=== PATIENT | female | born 1960 | race African-American/Black ===

== ENCOUNTER 2016-11-24 12:21 | Emergency (ER) | payer OTHER ==
[2016-11-24 12:28] VITALS: BMI 35.3
--- NOTE | 2016-11-24 12:49 | PDOC ---
History of Present Illness - General Chief Complaint: Seizure Stated Complaint: Seizure Time Seen by Provider: 11/24/16 12:39 History Source: Patient Exam Limitations: No Limitations - History of Present Illness Initial Comments: 11/24/16 13:01 56y F hx of tbi, aneyrsyms s/p repair in [place], seizures on keppra, presents with possible seizure vs syncope - pt states she had some reslessness with her leg which is chronic for her last night and this morning, she remembers putting something into the refrigerator and then woke up on the floor/ pt endorse feeling mild left sided headache for the past 2 weeks. denies any vision changes , numbness/tingling/weakness. pt states she has had these on occasion especially when she is emotional/agitated. pt denies an ypalpitations, sob, chest pressure, diarrhea, melena, bpr. no urrinary or bowel incontinence pt denies any tongue biting Past History - Past Medical History Allergies/Adverse Reactions: Allergies Allergy/AdvReac Type Severity Reaction Status Date / Time diphenhydramine HCl Allergy Verified 11/24/16 12:25 [From Benadryl] paroxetine HCl [From Paxil] Allergy Verified 11/24/16 12:25 pseudoephedrine HCl Allergy Verified 11/24/16 12:25 [From Sudafed] rofecoxib [From Vioxx] Allergy Verified 11/24/16 12:25 Home Medications: Ambulatory Orders Amlodipine Besylate [Norvasc -] 2.5 mg PO DAILY 12/09/15 Diclofenac Sodium [Voltaren] 100 gm TP BID 12/09/15 Doxepin HCl 200 mg PO HS 12/09/15 Hydromorphone HCl [Dilaudid] 8 mg PO Q6H PRN 12/09/15 Levetiracetam [Keppra -] 1,000 mg PO AM 12/09/15 Levetiracetam [Keppra] 1,500 mg PO HS 12/09/15 Polyethylene Glycol 3350 [Miralax 255 gm Btl] 17 gm PO DAILY PRN #1 bottle 12/08 Pregabalin [Lyrica] 225 mg PO DAILY 12/09/15 HTN: Yes Psychiatric Problems: Yes - Surgical History Neurologic Surgery: Yes (brain aneurysms x3 (2010)) - Psycho/Social/Smoking Cessation Hx Anxiety: No Suicidal Ideation: No Smoking History: Current every day smoker Have you smoked in the past 12 months: Yes Number of Cigarettes Smoked Daily: 20 Information on smoking cessation initiated: No 'Breaking Loose' booklet given: 12/09/15 Hx Alcohol Use: No Drug/Substance Use Hx: No Substance Use Type: None Review of Systems - Review of Systems Able to Perform ROS?: Yes Comments:: 11/24/16 13:20 Constitutional - no reported Fever, Chills, weakness, HEENT: no reported vision changes, sore throat Respiratory: no reported cough, sob, hemoptysis Cardiac: no reported chest pain, palpitations, light headedness, leg swelling Abd/GI: no reported abd pain, nausea, vomiting, blood per rectum, melena, diarrhea : no reported dysuria, frequency, discharge Musculskelatal - no reported back pain, joint swelling skin - no reported bruising, erythema, rash neurological: +headache, +loc (seizure vs syncope) no reported numbness, focal weakness, tingling, ataxia, weakness hematologic: no reported anemia, easy bruising, easy bleeding *Physical Exam - Vital Signs Last Vital Signs Temp Pulse Resp BP Pulse Ox 97.9 F 93 H 18 140/104 100 11/24/16 12:26 11/24/16 12:26 11/24/16 12:26 11/24/16 12:26 11/24/16 12:26 - Physical Exam Comments: 11/24/16 13:21 GENERAL: The patient is awake, alert, and fully oriented, Nontoxic - in no acute distress. HEAD: Normocephalic, atraumatic. EYES: extraocular movements intact, sclera anicteric, conjunctiva clear. ENT: Normal voice, Moist mucous membranes. NECK: Normal range of motion, supple LUNGS: Breath sounds equal, clear to auscultation bilaterally. No wheezes, no rhonchi, no rales. HEART: Regular rate and rhythm, normal S1 and S2 without murmur, rub or gallop. ABDOMEN: Soft, nontender, normoactive bowel sounds. No guarding, no rebound. . No CVA tenderness EXTREMITIES: Normal range of motion, no edema. No clubbing or cyanosis. No cords, erythema, or tenderness. NEUROLOGICAL: No facial assymetry, Normal speech, moving all 4 extremities spontanoeusly and symmetrically PSYCH: Normal mood, normal affect. SKIN: Warm, Dry, normal turgor, ED Treatment Course - LABORATORY CBC & Chemistry Diagram: 11/24/16 13:52 11/24/16 13:40 Medical Decision Making - Medical Decision Making 11/24/16 12:48 I was evaluating the patient when I received a call from a physician regarding a sick patient they were sending to the emergency department. The patient then became agrssive, and was upset, claiming I disrespected her when I walked away from her. after discussion with her, she calmed down. 11/24/16 13:22 s/p LOC seizure vs. syncope (pt states feels like her pervious seizures but w/o tongue biting) will place on traffic monitor specialist will ck labs to r/o anemia, metabolic dernagement ua to r/o occult infection headache to r/o acute intracranial pathology 11/24/16 16:[address] head shows old findings pts labs unremarkable the pt was reassesed. pt negotiating for IV pain medication, requesting 8mg, then 4mg of dilaudid the pt then requesting morphine. I told the patient that I do not negotiate doses of narcotics medications. requesting that 'i better give her something IV that will make her 'relax' i will give pt some tylenol orally. during the process, she is saying 'you are not going to like my head hitting the floor again, if you dont give me IV pain medication;' - bsaed on the patients threats - I suspect the pt is pain seeking. the patient was again called as a condition 10. iw ill discharge the patient to follow up [facility] doctors return precautions were discussed with her. The patient is also insulting staff by calling my nurse 'a swinging black ass from [employer] [employer]'. The ptient will be escorted out by security. *DC/Admit/Observation/Transfer Diagnosis at time of Disposition: Seizure - Discharge Dispostion Disposition: HOME Condition at time of disposition: Stable Admit: No - Referrals Referrals: [facility] [Provider Group] - Patient Instructions Printed Discharge Instructions: DI for Seizure Disorder -- Adult Additional Instructions: Return to the emergency department immediately with ANY new, persistent or worsening symptoms. You MUST call and follow up with your doctor tomorrow for further evaluation of your symptoms. Results were discussed with you. Please make sure your doctor reviews the results of your emergency evaluation. If you had any xrays during your visit, it was read preliminarily by myself, a Radiologist will review it and if there are any additional findings we will call you. Print Language: FAROESE
[2016-11-24 13:48] LABS: BASOPHIL 0.9 % (0-2.0); EOSINOPHIL 1.6 % (0-4.5); MCH 31.3 pg (25.7-33.7); MCHC 33.8 g/dl (32.0-36.0); MEAN CELL VOLUME 92.7 fl (80-96); MEAN PLT VOLUME 8.4 fl (7.5-11.1); NEUTROPHILS 55.6 % (42.8-82.8); PLATELET COUNT 247 K/MM3 (134-434); RDW 14.6 % (11.6-15.6); WHITE BLOOD COUNT 5.1 K/mm3 (4.0-10.0)
[2016-11-24 14:20] LABS: ALBUMIN 3.6 g/dl (3.4-5.0); BILIRUBIN,TOTAL 0.2 mg/dL (0.2-1.0); COCKROFT - GAULT 70.924; CREATININE 1.2 mg/dL (0.55-1.02); TOT PROT 7.2 g/dl (6.4-8.2)
[2016-11-24 15:24] LABS: URINE APPEARANCE CLEAR; URINE BILIRUBIN NEGATIVE (NEGATIVE); URINE BLOOD NEGATIVE (NEGATIVE); URINE COLOR LTYELLOW; URINE GLUCOSE (UA) NEGATIVE (NEGATIVE); URINE KETONE NEGATIVE (NEGATIVE); URINE LEUK ESTERASE NEGATIVE (NEGATIVE); URINE NITRITE NEGATIVE (NEGATIVE); URINE PROTEIN NEGATIVE (NEGATIVE); URINE UROBILINOGEN NEGATIVE E.U./dl (0.2-1.0)
[2016-11-24] MEDS ORDERED: ACETAMINOPHEN 1000 MG/100 ML VIAL (NON FORMULARY) IVPB ONE (16:26)
[2016-11-24] MEDS ORDERED: ACETAMINOPHEN INJECTION 100 ML IVPB ONE (16:32)
[2016-11-24] MEDS ORDERED: ACETAMINOPHEN 325 MG TABLET (FP) PO ONE (16:34)
[2016-11-24] MEDS ORDERED: ACETAMINOPHEN 325 MG TABLET (FP) ONE (16:36)
[2016-11-24 16:46] VITALS: BP 141/93; PULSE 89; TEMP 97.6
== END 2016-11-24 16:45 | disposition home or self-care (01) ==
LOC: JER 12:21
DX: G40.909 Epilepsy, unspecified, not intractable, without status epilepticus (principal); I10 Essential (primary) hypertension; Z87.820 Personal history of traumatic brain injury; F17.210 Nicotine dependence, cigarettes, uncomplicated
CPT/HCPCS: 36415; 70450-TC; 80053; 81003; 83605; 85025; 99284-25

== ENCOUNTER 2017-10-20 14:44 | Emergency (ER) | payer OTHER ==
--- NOTE | 2017-10-20 14:56 | PDOC ---
History of Present Illness - General Stated Complaint: ABD PAIN Time Seen by Provider: 10/20/17 14:56 - History of Present Illness Initial Comments: 10/20/17 14:58 Ms. Garcia is a 57 yo female w/ pmh of TBI, HTN, Restless leg syndrome, carpal tunnel syndrome, aneurysms s/p repair, seizures (on keppra), who presents complaining of a one month history of worsening left leg pain that radiates from her left hip down her leg. This pain is exacerbated by movement and coincides with her chronic back pain for which she has been told she needs back surgery. She also complains of recent increased frequency and volume of urination. The patient denies chest pain, shortness of breath, headache and dizziness. Denies fever, chills, nausea, vomit, diarrhea and constipation. Allergies: Acetaminophen, dextromethorphan, diphenhydramine, doxylamine, ibuprofen, paroxetine, pseudoephrine, rofecoxib Past History - Past Medical History Allergies/Adverse Reactions: Allergies Allergy/AdvReac Type Severity Reaction Status Date / Time acetaminophen [From NyQuil] Allergy Verified 10/20/17 15:03 dextromethorphan Allergy Verified 10/20/17 15:03 [From NyQuil] diphenhydramine HCl Allergy Verified 10/20/17 15:03 [From Benadryl] doxylamine [From NyQuil] Allergy Verified 10/20/17 15:03 ibuprofen [From Advil] Allergy Verified 10/20/17 15:03 paroxetine HCl [From Paxil] Allergy Verified 10/20/17 15:03 pseudoephedrine [From NyQuil] Allergy Verified 10/20/17 15:03 pseudoephedrine HCl Allergy Verified 10/20/17 15:03 [From Sudafed] rofecoxib [From Vioxx] Allergy Verified 10/20/17 15:03 Home Medications: Ambulatory Orders Amlodipine Besylate [Norvasc -] 2.5 mg PO DAILY 12/09/15 Diclofenac Sodium [Voltaren] 100 gm TP BID 12/09/15 Doxepin HCl 200 mg PO HS 12/09/15 Hydromorphone HCl [Dilaudid] 8 mg PO Q6H PRN 12/09/15 Levetiracetam [Keppra] 1,500 mg PO HS 12/09/15 Polyethylene Glycol 3350 [Miralax 255 gm Btl] 17 gm PO DAILY PRN #1 bottle 12/08 Pregabalin [Lyrica] 225 mg PO DAILY 12/09/15 levETIRAcetam [Keppra -] 1,000 mg PO AM 12/09/15 HTN: Yes Psychiatric Problems: Yes - Surgical History Neurologic Surgery: Yes (brain aneurysms x3 (2010)) - Suicide/Smoking/Psychosocial Hx Smoking History: Current every day smoker Have you smoked in the past 12 months: Yes Number of Cigarettes Smoked Daily: 20 'Breaking Loose' booklet given: 12/09/15 Hx Alcohol Use: No Drug/Substance Use Hx: No Substance Use Type: None Review of Systems - Review of Systems Comments:: 10/20/17 15:20 GENERAL/CONSTITUTIONAL: No fever or chills. No weakness. HEAD, EYES, EARS, NOSE AND THROAT: No change in vision. No ear pain or discharge. No sore throat. CARDIOVASCULAR: No chest pain or shortness of breath RESPIRATORY: No cough, wheezing, or hemoptysis. GASTROINTESTINAL: No nausea, vomiting, diarrhea or constipation. GENITOURINARY: +Urinary changes as described of increased frequency / volume MUSCULOSKELETAL: +Left leg pain worsened with any movement. No neck or back pain. SKIN: No rash NEUROLOGIC: No headache, vertigo, loss of consciousness, or change in strength/ sensation. ENDOCRINE: No increased thirst. No abnormal weight change HEMATOLOGIC/LYMPHATIC: No anemia, easy bleeding, or history of blood clots. ALLERGIC/IMMUNOLOGIC: No hives or skin allergy. *Physical Exam - Physical Exam Comments: 10/20/17 15:20 GENERAL: +Patient observed to be morbidly obese. Awake, alert, and fully oriented, in no acute distress HEAD: No signs of trauma, normocephalic, atraumatic EYES: PERRLA, EOMI, sclera anicteric, conjunctiva clear ENT: Auricles normal inspection, hearing grossly normal, nares patent, oropharynx clear without exudates. Moist mucosa NECK: Normal ROM, supple, no lymphadenopathy, JVD, or masses LUNGS: No distress, speaks full sentences, clear to auscultation bilaterally HEART: Regular rate and rhythm, normal S1 and S2, no murmurs, rubs or gallops, peripheral pulses normal and equal bilaterally. ABDOMEN: +Left CVA tenderness w/ left Soft, nontender, normoactive bowel sounds. No guarding, no rebound. No masses EXTREMITIES: Normal inspection, Normal range of motion, no edema. No clubbing or cyanosis. NEUROLOGICAL: Cranial nerves II through XII grossly intact. Normal speech, normal gait, no focal sensorimotor deficits SKIN: Warm, Dry, normal turgor, no rashes or lesions noted. ED Treatment Course - LABORATORY CBC & Chemistry Diagram: 10/20/17 17:11 10/20/17 17:11 Medical Decision Making - Medical Decision Making 10/20/17 16:10 Ms. Garcia presents w/ symptoms of left leg pain and possible UTI. UA and CBC/ CMP sent for evaluation. 10/20/17 17:12 Patient's home dose of dilaudid ordered for pain control. Patient initially refused order and nurse wasted medication per protocol. Order re-placed as patient changed mind and reports she will now take it. 10/20/17 18:08 Labs grossly wnl as below. No concern for acute process at this time. Discharging patient w/ follow-up information for pain management. Patient verbalized understanding and will use referral information for further outpatient care. Laboratory Results - last 24 hr 10/20/17 10/20/17 10/20/17 17:11 17:11 17:25 WBC 6.4 RBC 4.33 Hgb 13.3 Hct 39.1 MCV 90.4 MCH 30.6 MCHC 33.9 RDW 14.4 Plt Count 361 D MPV 7.9 Neutrophils % 58.5 Lymphocytes % 32.2 Monocytes % 6.5 Eosinophils % 2.0 Basophils % 0.8 Sodium 140 Potassium 4.1 Chloride 108 H Carbon Dioxide 25 Anion Gap 7 L BUN 6 L Creatinine 1.2 H Creat Clearance w eGFR 46.47 Random Glucose 114 H Calcium 8.5 Total Bilirubin 0.2 AST 9 L ALT 9 L Alkaline Phosphatase 97 Total Protein 7.6 Albumin 3.3 L Urine Color Yellow Urine Appearance Clear Urine pH 5.0 D Ur Specific [place] 1.026 Urine Protein Negative Urine Glucose (UA) Negative Urine Ketones Trace H Urine Blood Negative Urine Nitrite Negative Urine Bilirubin Negative Urine Urobilinogen 2.0 H Ur Leukocyte Esterase Negative *DC/Admit/Observation/Transfer Diagnosis at time of Disposition: Chronic pain Qualifiers: Chronic pain type: other chronic pain Qualified Code(s): G89.29 - Other chronic pain - Discharge Dispostion Disposition: HOME - Referrals Referrals: David Bullock MD [Non Staff, Medical] - - Patient Instructions Printed Discharge Instructions: DI for Chronic Pain -- Adult Additional Instructions: Please return if any increase in pain, fever, chills, or other concerning symptoms. Follow-up with paint roller assembler using information provided as discussed for further treatment. - Post Discharge Activity
[2017-10-20] MEDS ORDERED: LIDOCAINE HCL 1%, 10 MG/ML (50 mL VIAL) SQ ONE (14:58)
[2017-10-20 15:03] VITALS: BMI 38.7
[2017-10-20] MEDS ORDERED: HYDROmorphone HCL 2 MG TABLET PO ONE (16:35)
[2017-10-20] MEDS ORDERED: HYDROmorphone HCL 2 MG TABLET ONE ×2 (16:46→17:14)
--- NOTE | 2017-10-20 17:24 | PDOC ---
Attending Attestation - Resident Resident Name: Juancarlos Saab - HPI HPI: 10/20/17 16:59 Pt presents to the ED complaining of acute exacerbation of her chronic pain. Denies new complaints. Patient has a pain management physician, but has not been following up with him because " he won't do anything for me". 10/21/17 11:06 - Physicial Exam PE: 10/21/17 11:07 Agree with resident exam. PAtient is awake, alert and neurologically intact. - Medical Decision Making 10/21/17 11:07 Pt presents to the ED complaining of chronic pain, requesting a "shot" for pain. Denies new complaints. PAtient has a long standing history of chronic pain, which has been treated with large doses of narcotics--patient takes 4 mg PO dilaudid at home. I have offered her a work up in the the ED to ensure that there are no acute problems ( she does complain of urinary frequency), but the patient was initially refusing. She now has agreed to give blood and urine. I have explained to her at length that there is no indication at this time for IV or IM narcotic medicines.
[2017-10-20 17:25] LABS: BASO % 0.8 % (0-2.0); HEMATOCRIT 39.1 % (32.4-45.2); HEMOGLOBIN 13.3 GM/dL (10.7-15.3); LYMPH % 32.2 % (8-40); MCH 30.6 pg (25.7-33.7); MCHC 33.9 g/dl (32.0-36.0); MEAN CELL VOLUME 90.4 fl (80-96); MEAN PLT VOLUME 7.9 fl (7.5-11.1); MONO % 6.5 % (3.8-10.2); NEUT % 58.5 % (42.8-82.8); PLATELET COUNT 361 K/MM3 (134-434); RBC 4.33 M/mm3 (3.60-5.2); RDW 14.4 % (11.6-15.6); WHITE BLOOD COUNT 6.4 K/mm3 (4.0-10.0)
[2017-10-20 17:39] LABS: URINE APPEARANCE CLEAR; URINE BILIRUBIN NEGATIVE (NEGATIVE); URINE BLOOD NEGATIVE (NEGATIVE); URINE COLOR YELLOW; URINE GLUCOSE (UA) NEGATIVE (NEGATIVE); URINE KETONE TRACE (NEGATIVE); URINE LEUK ESTERASE NEGATIVE (NEGATIVE); URINE NITRITE NEGATIVE (NEGATIVE); URINE PROTEIN NEGATIVE (NEGATIVE)
[2017-10-20 17:54] LABS: ALBUMIN 3.3 g/dl (3.4-5.0); ALK PHOS 97 U/L (45-117); ANION GAP 7 (8-16); BILIRUBIN,TOTAL 0.2 mg/dL (0.2-1.0); BLOOD UREA NITROGEN 6 mg/dL (7-18); CALCIUM 8.5 mg/dL (8.5-10.1); CHLORIDE 108 mmol/L (98-107); CO2 25 mmol/L (21-32); CREATININE 1.2 mg/dL (0.55-1.02); GLUCOSE,RANDOM 114 mg/dL (74-106); POTASSIUM 4.1 mmol/L (3.5-5.1); SGOT/AST 9 U/L (15-37); SGPT/ALT 9 U/L (12-78); SODIUM 140 mmol/L (136-145); TOT PROT 7.6 g/dl (6.4-8.2)
[2017-10-20 18:46] VITALS: BP 116/78; PULSE 78; TEMP 98
== END 2017-10-20 18:45 | disposition home or self-care (01) ==
LOC: JER 14:44
DX: G89.29 Other chronic pain (principal); S06.9X0A Unspecified intracranial injury without loss of consciousness, initial encounter; I10 Essential (primary) hypertension; G25.81 Restless legs syndrome; G56.00 Carpal tunnel syndrome, unspecified upper limb; F17.210 Nicotine dependence, cigarettes, uncomplicated; F99 Mental disorder, not otherwise specified
CPT/HCPCS: 36415; 80053; 81003; 85025; 87086; 99284-25

== ENCOUNTER 2018-03-14 12:08 | Observation (INO) | payer OTHER ==
--- NOTE | 2018-03-14 12:55 | PDOC ---
History of Present Illness - General Stated Complaint: NUMBNESS Time Seen by Provider: 03/14/18 12:12 History Source: Patient - History of Present Illness Initial Comments: 03/14/18 12:44 57 yo female pmh of 8 strokes (residual left sided weakness and numbness) and 3 aneurysms (last one coiled in 2009) seizures (2-3 times a week), hypertension, bipolar and anxiety presents to the ED for left sided headache and face numbness that started yesterday morning. Patient admits to having intermittent headaches and left sided sensory deficits which usually resolve within 30min but came to the ED today for persistent left sided head numbness. Patient states she woke up with with a headache which persisted throughout the day and into today. She also admits to waking up this morning slumped over on her dresser around 3 am without recollection as to how she got there. Patient does admit to being more confused than normal today, having double vision and also feelings of nausea and dizziness. Patient admits to Q abdominal pain, SOB and CP. Past History - Past Medical History Allergies/Adverse Reactions: Allergies Allergy/AdvReac Type Severity Reaction Status Date / Time acetaminophen [From NyQuil] Allergy Verified 03/14/18 12:43 dextromethorphan Allergy Verified 03/14/18 12:43 [From NyQuil] diphenhydramine HCl Allergy Verified 03/14/18 12:43 [From Benadryl] doxylamine [From NyQuil] Allergy Verified 03/14/18 12:43 ibuprofen [From Advil] Allergy Verified 03/14/18 12:43 paroxetine HCl [From Paxil] Allergy Verified 03/14/18 12:43 pseudoephedrine [From NyQuil] Allergy Verified 03/14/18 12:43 pseudoephedrine HCl Allergy Verified 03/14/18 12:43 [From Sudafed] rofecoxib [From Vioxx] Allergy Verified 03/14/18 12:43 Home Medications: Ambulatory Orders Amlodipine Besylate [Norvasc -] 2.5 mg PO DAILY 12/09/15 Diclofenac Sodium [Voltaren] 100 gm TP BID 12/09/15 Doxepin HCl 200 mg PO HS 12/09/15 Hydromorphone HCl [Dilaudid] 4 mg PO Q6H PRN 04/21/16 Levetiracetam [Keppra] 1,500 mg PO HS 12/09/15 Polyethylene Glycol 3350 [Miralax 255 gm Btl] 17 gm PO DAILY PRN #1 bottle 12/08 Pregabalin [Lyrica] 225 mg PO DAILY 12/09/15 levETIRAcetam [Keppra -] 1,000 mg PO AM 12/09/15 Acetaminophen/Caffeine/Butalb [Fioricet -] 1 tab PO Q4H 03/14/18 Atenolol [Tenormin -] 25 mg PO DAILY 03/14/18 Duloxetine HCl [Cymbalta] 30 mg PO HS 03/14/18 Gabapentin [Neurontin] 600 mg PO HS 03/14/18 Ropinirole HCl 0.5 mg PO DAILY 03/14/18 COPD: No HTN: Yes Psychiatric Problems: Yes - Surgical History Neurologic Surgery: Yes (brain aneurysms x3 (2010)) - Immunization History Immunization Up to Date: Yes - Suicide/Smoking/Psychosocial Hx Smoking History: Current every day smoker Have you smoked in the past 12 months: Yes Number of Cigarettes Smoked Daily: 20 Information on smoking cessation initiated: Yes 'Breaking Loose' booklet given: 12/09/15 Hx Alcohol Use: No Drug/Substance Use Hx: No Substance Use Type: Marijuana Review of Systems - Review of Systems Constitutional: Yes: Weakness (residual left sided). No: Fever HEENTM: Yes: Double Vision. No: Eye Pain Respiratory: Yes: Shortness of Breath. No: Cough Cardiac (ROS): Yes: Chest Pain. No: Edema, Irregular Heart Rate, Lightheadedness, Palpitations ABD/GI: Yes: Nausea, Vomiting (1x yesterday afternoon), Other (LLQ pain). No: Abdominal Distended, Constipated, Diarrhea : No: Burning, Dysuria, Discharge, Frequency, Flank Pain, Hematuria Musculoskeletal: Yes: Back Pain (hx of back surgies and bulging discs, states it is consistent with past pain hx) Integumentary: No: Bruising Neurological: Yes: Headache, Numbness (left side of face), Paresthesia (residual , bilateral hands and feet), Weakness (residual weakness left extremities ) Psychiatric: Yes: Anxiety *Physical Exam - Vital Signs Last Vital Signs Temp Pulse Resp BP Pulse Ox 97.8 F 78 22 128/99 94 L 07/26/18 12:20 03/14/18 12:20 03/14/18 12:20 03/14/18 12:20 03/14/18 12:20 - Physical Exam General Appearance: Yes: Nourished, Appropriately Dressed, Apparent Distress ( confused and lethargic ) HEENT: positive: EOMI, KASSIDY, Normal ENT Inspection, Normal Voice, Photophobia ( mid). negative: Scleral Icterus (R), Scleral Icterus (L), Lesions Respiratory/Chest: positive: Lungs Clear, Normal Breath Sounds. negative: Respiratory Distress Cardiovascular: positive: Regular Rhythm, Regular Rate, S1, S2. negative: Edema , JVD, Murmur Vascular Pulses: Dorsalis-Pedis (R): 4+, Doralis-Pedis (L): 4+ Gastrointestinal/Abdominal: positive: Normal Bowel Sounds, Tenderness (LLQ). negative: Pulsatile Mass, Distended, Guarding, Rebound Musculoskeletal: negative: CVA Tenderness Extremity: positive: Normal Capillary Refill Integumentary: positive: Normal Color, Dry, Warm Neurologic: positive: superintendent nonselling II-XII NML intact, Fully Oriented, Alert, Normal Response, Motor Strength 5/5, Numbness (left face, uper and lower ext numb and dulled compared to right), Finger to Nose (normal), Confused. negative: Normal Mood/Affect (confused), Disoriented Heart Score/ECG Review - ECG Intrepretation Rhythm: Regular Rhythm - [place]: Normal - ECG Impressions Normal ECG: Yes ED Treatment Course - LABORATORY CBC & Chemistry Diagram: 03/14/18 13:12 03/14/18 13:12 Medical Decision Making - Medical Decision Making 57 yo female pmh of multiple strokes (coiled) and seizures presents to the ED with a headache and left sided face numbness for the past 36 hours. On exam patient is alert but confused. CN2-12 grossly intact but admits to dull sensation to the left face when compared bilaterally. Hard to distinguish residual deficits from new complaints to to patients affect. Pt has complained of pain but refused toradol. She has been resting while in the ed Head CT shows a lacunar infarct in the basal ganglia of uncertain chronicity 03/14/18 15:[address] Fernandez who would like the patient admitted and have an MRI. He will see the patient tomorrow. Will admit patient to hospitalist 03/14/18 16:54 *DC/Admit/Observation/Transfer Diagnosis at time of Disposition: Left facial numbness - Discharge Dispostion Condition at time of disposition: Stable Decision to Admit order: Yes - Referrals - Patient Instructions - Post Discharge Activity
[2018-03-14] MEDS ORDERED: SODIUM CHLORIDE 1,000 ML IV SCH (13:15)
[2018-03-14 13:35] LABS: BASO % 0.6 % (0-2.0); HEMATOCRIT 38.6 % (32.4-45.2); HEMOGLOBIN 13.1 GM/dL (10.7-15.3); MCH 30.9 pg (25.7-33.7); MCHC 33.8 g/dl (32.0-36.0); MEAN CELL VOLUME 91.5 fl (80-96); MEAN PLT VOLUME 9.3 fl (7.5-11.1); MONO % 4.8 % (3.8-10.2); NEUT % 45.6 % (42.8-82.8); PLATELET COUNT 257 K/MM3 (134-434); RBC 4.23 M/mm3 (3.60-5.2); RDW 18.2 % (11.6-15.6); WHITE BLOOD COUNT 4.7 K/mm3 (4.0-10.0)
[2018-03-14 13:41] LABS: INR 1.12 (0.82-1.09); PROTHROMBIN TIME (PATIENT) 12.6 SEC (9.7-13.0)
[2018-03-14 13:58] LABS: ANION GAP 8 (8-16); BLOOD UREA NITROGEN 5 mg/dL (7-18); CHLORIDE 102 mmol/L (98-107); CHOLESTEROL 439 mg/dL (50-200); CO2 31 mmol/L (21-32); CREATININE 1.6 mg/dL (0.55-1.02); GLUCOSE,RANDOM 83 mg/dL (74-106); HDL CHOLESTEROL 51 mg/dL (40-60); POTASSIUM 3.1 mmol/L (3.5-5.1); SGOT/AST 36 U/L (15-37); SGPT/ALT 26 U/L (12-78); SODIUM 141 mmol/L (136-145); TRIGLYCERIDES 265 mg/dL (35-160)
[2018-03-14 14:00] LABS: ALK PHOS 75 U/L (45-117); BILIRUBIN,TOTAL 0.4 mg/dL (0.2-1.0); TOT PROT 8.3 g/dl (6.4-8.2)
--- NOTE | 2018-03-14 14:27 | EKG ---
Test Reason : Blood Pressure : / mmHG Vent. Rate : 068 BPM Atrial Rate : 068 BPM P-R Int : 190 ms QRS Dur : 100 ms QT Int : 420 ms P-R-T Axes : 037 -10 044 degrees QTc Int : 446 ms NORMAL SINUS RHYTHM LOW VOLTAGE QRS NONSPECIFIC T WAVE ABNORMALITY ABNORMAL ECG NO PREVIOUS ECGS AVAILABLE Confirmed by RANJAN LAY MD ([id number]) on 03/14/2018 2:27:09 PM Referred By: Confirmed By:RANJAN LAY MD
[2018-03-14] MEDS ORDERED: traMADol HCL 50 MG TABLET PO ONE (15:12)
[2018-03-14] MEDS ORDERED: traMADol HCL 50 MG TABLET ONE (15:29)
--- NOTE | 2018-03-14 15:41 | PDOC ---
Attending Attestation - Resident Resident Name: Seamus Britt - ED Attending Attestation I have performed the following: I have examined & evaluated the patient, The case was reviewed & discussed with the resident, I agree w/resident's findings & plan, Exceptions are as noted - HPI HPI: 03/14/18 15:39 " The patient is a 57 year old female, with a significant PMH of TBI, HTN, bipolar disorder, anxiety, restless leg syndrome, carpal tunnel syndrome, seizures (on keppra), 8 strokes (residual left sided weakness and numbness) and 3 aneurysms (last one coiled in 2009) who presents to the emergency department with left sided headache and left sided face numbness for one day. The patient states she experienced the left sided headache after waking up yesterday morning. The patient states she has a history of intermittent headaches and left sided sensory deficits but decided to come to the ED today as her symptoms did not resolve within 30 minutes as she states they usually do. Pt denies CP/ SOB. Denies abdominal pain. Denies fever, chills, cough, congestion, vomit, diarrhea and constipation. Denies dysuria, frequency, urgency and hematuria. Allergies: Acetaminophen, dextromethorphan, diphenhydramine, doxylamine, ibuprofen, paroxetine, pseudoephrine, rofecoxib " - Physicial Exam PE: 03/14/18 15:39 "GENERAL: Awake, alert, in no acute distress. HEAD: No signs of trauma EYES: PERRLA, EOMI, sclera anicteric, conjunctiva clear ENT: Auricles normal inspection, hearing grossly normal, nares patent, oropharynx clear without exudates. Moist mucosa NECK: Nontender, no stepoffs, Normal ROM, supple, no lymphadenopathy, JVD, or masses LUNGS: Breath sounds equal, clear to auscultation bilaterally. No wheezes, and no crackles HEART: Regular rate and rhythm, normal S1 and S2, no murmurs, rubs or gallops ABDOMEN: Soft, nontender, normoactive bowel sounds. No guarding, no rebound. No masses EXTREMITIES: Normal range of motion, no edema. No clubbing or cyanosis. No cords, erythema, or tenderness NEUROLOGICAL: + diminished sensation to L face, CN otherwise intact, 5/5 strength and sensation in all extremities SKIN: Warm, Dry, normal turgor, no rashes or lesions noted. " - Medical Decision Making 03/14/18 15:40 57 F with diminished sensation to L face. Will evaluate for CVA vs aneurysm given prior history of both. Pt with no other neuro deficits on exam. Pt outside window for tpa. - Labs - CT head - Neuro consult <Dre Prasad - Last Filed: 03/15/18 16:40> NIH Stroke Scale - Last Known Well Date/Time & Onset Date Last Known Well: 03/13/18 Time Last Known Well: 20:00 - Initial Evaluation Level of consciousness: Alert Ask patient the month and their age: Answers both correctly Ask patient to open & close eyes; make fist and let go: Obeys both correctly Best gaze (horizontal eye movement): Normal Visual field testing: No visual field loss Facial paresis (Show teeth/raise eyebrows/close eyes tight): Normal symmetrical movement Motor Function: Left Arm: Normal Motor Function: Right Arm: Normal (extends arm 90 (or 45) degrees for 10 seconds without drift Motor Function: Left Leg: Normal (extends leg 30 degrees for 5 seconds without drift) Motor Function: Right Leg: Normal (extends leg 30 degrees for 5 seconds without drift) Limb Ataxia: No ataxia Sensory(Use pinprick test arms,legs,trunk,face/side to side): Mild to moderate decrease in sensation Best language (Describe picture, name items, read sentences): No Aphasia Dysarthria (read several words): Normal articulation Extinction and Inattention: No abnormality - Total Score NIH Stroke Scale Score: 1 <Dre rPasad - Last Filed: 03/15/18 16:40> Attestations - Attestations 03/14/18 15:50 Documentation prepared by Rico Apodaca, acting as medical imaging director for Dre Prasad MD. <Rico Apodaca - Last Filed: 03/14/18 15:50>
--- NOTE | 2018-03-14 16:25 | HP ---
CHIEF COMPLAINT: My children won't leave me alone. HISTORY OF PRESENT ILLNESS: 57 year-old female with a significant PMH of HTN, TBI, multiple CVAs and brain aneurysms s/p repairs, seizure disorder, and bipolar disorder who presents to the ED with left-sided headache and left sided face numbness x 1 day. The patient states she experienced the left sided headache after waking up yesterday morning. She has a history of intermittent headaches and left-sided sensory deficits but decided to come to the ED today as her symptoms did not resolve within 30 minutes as she states they usually do. On admission patient states she has had headache and worsening left-sided weakness for two weeks. She was tearful and states she under great stress from her children. Recent Travel: No PAST MEDICAL HISTORY: Hypertension Traumatic brain injury Multiple CVAs Brain aneurysms Seizure disorder Carpal tunnel syndrome Bipolar disorder PAST SURGICAL HISTORY: Left pterional craniotomy Aneurysmectomies x3 (2009) Social History: Smoking: current every day Alcohol: Drugs: Family History: Allergies acetaminophen [From NyQuil] Allergy (Verified 03/14/18 12:43) dextromethorphan [From NyQuil] Allergy (Verified 03/14/18 12:43) diphenhydramine HCl [From Benadryl] Allergy (Verified 03/14/18 12:43) doxylamine [From NyQuil] Allergy (Verified 03/14/18 12:43) ibuprofen [From Advil] Allergy (Verified 03/14/18 12:43) paroxetine HCl [From Paxil] Allergy (Verified 03/14/18 12:43) pseudoephedrine [From NyQuil] Allergy (Verified 03/14/18 12:43) pseudoephedrine HCl [From Sudafed] Allergy (Verified 03/14/18 12:43) rofecoxib [From Vioxx] Allergy (Verified 03/14/18 12:43) HOME MEDICATIONS: Home Medications Medication Instructions Recorded Amlodipine Besylate [Norvasc -] 2.5 mg PO DAILY 12/09/15 Diclofenac Sodium [Voltaren] 100 gm TP BID 12/09/15 Doxepin HCl 200 mg PO HS 12/09/15 Hydromorphone HCl [Dilaudid] 4 mg PO Q6H PRN 12/09/15 Levetiracetam [Keppra] 1,500 mg PO HS 12/09/15 Polyethylene Glycol 3350 [Miralax 17 gm PO DAILY PRN #1 bottle 12/09/15 255 gm Btl] Pregabalin [Lyrica] 225 mg PO DAILY 12/09/15 levETIRAcetam [Keppra -] 1,000 mg PO AM 12/09/15 Acetaminophen/Caffeine/Butalb 1 tab PO Q4H 03/14/18 [Fioricet -] Atenolol [Tenormin -] 25 mg PO DAILY 03/14/18 Duloxetine HCl [Cymbalta] 30 mg PO HS 03/14/18 Gabapentin [Neurontin] 600 mg PO HS 03/14/18 Ropinirole HCl 0.5 mg PO DAILY 03/14/18 REVIEW OF SYSTEMS CONSTITUTIONAL: Absent: fever, chills, diaphoresis, generalized weakness, malaise, loss of appetite, weight change HEENT: Absent: rhinorrhea, nasal congestion, throat pain, throat swelling, difficulty swallowing, mouth swelling, ear pain, eye pain, visual changes CARDIOVASCULAR: Absent: chest pain, syncope, palpitations, irregular heart rate, lightheadedness , peripheral edema RESPIRATORY: Absent: cough, shortness of breath, dyspnea with exertion, orthopnea, wheezing, stridor, hemoptysis GASTROINTESTINAL: Absent: abdominal pain, abdominal distension, nausea, vomiting, diarrhea, constipation, melena, hematochezia GENITOURINARY: Absent: dysuria, frequency, urgency, hesitancy, hematuria, flank pain, genital pain MUSCULOSKELETAL: Absent: myalgia, arthralgia, joint swelling, back pain, neck pain SKIN: Absent: rash, itching, pallor HEMATOLOGIC/IMMUNOLOGIC: Absent: easy bleeding, easy bruising, lymphadenopathy, frequent infections ENDOCRINE: Absent: unexplained weight gain, unexplained weight loss, heat intolerance, cold intolerance NEUROLOGIC: +headache, left-sided facial numbness, left-sided weakness Absent: focal weakness or paresthesias, dizziness, unsteady gait, seizure, mental status changes, bladder or bowel incontinence PSYCHIATRIC: +anxiety Absent: depression, suicidal or homicidal ideation, hallucinations. PHYSICAL EXAMINATION Vital Signs - 24 hr 03/14/18 12:20 Temperature 97.8 F Pulse Rate 78 Respiratory 22 Rate Blood Pressure 128/99 O2 Sat by Pulse 94 L Oximetry (%) GENERAL: Awake, alert, and fully oriented, in no acute distress. HEAD: Normal with no signs of trauma. EYES: Pupils equal, round and reactive to light, extraocular movements intact, sclera anicteric, conjunctiva clear. No lid lag. EARS, NOSE, THROAT: Ears normal, nares patent, oropharynx clear without exudates. Moist mucous membranes. NECK: Normal range of motion, supple without lymphadenopathy, JVD, or masses. LUNGS: Breath sounds equal, clear to auscultation bilaterally. No wheezes, and no crackles. No accessory muscle use. HEART: Regular rate and rhythm, normal S1 and S2 without murmur, rub or gallop. ABDOMEN: Soft, nontender, not distended, normoactive bowel sounds, no guarding, no rebound, no masses. No hepatomegaly or splenomegaly. MUSCULOSKELETAL: Normal range of motion at all joints. No bony deformities or tenderness. No CVA tenderness. UPPER EXTREMITIES: 2+ pulses, warm, well-perfused. No cyanosis. No clubbing. No peripheral edema. LOWER EXTREMITIES: 2+ pulses, warm, well-perfused. No calf tenderness. No peripheral edema. NEUROLOGICAL: Cranial nerves II-XII intact. Normal speech. Laboratory Results - last 24 hr 03/14/18 03/14/18 03/14/18 13:12 13:12 13:12 WBC 4.7 RBC 4.23 Hgb 13.1 Hct 38.6 MCV 91.5 MCH 30.9 MCHC 33.8 RDW 18.2 H Plt Count 257 D MPV 9.3 D Absolute Neuts (auto) 2.1 Neutrophils % 45.6 D Lymphocytes % 47.0 H D Monocytes % 4.8 Eosinophils % 2.0 Basophils % 0.6 Nucleated RBC % 0 PT with INR INR Sodium 141 Potassium 3.1 L Chloride 102 Carbon Dioxide 31 Anion Gap 8 BUN 5 L Creatinine 1.6 H Creat Clearance w eGFR 33.34 Random Glucose 83 Calcium 9.0 Total Bilirubin 0.4 AST 36 ALT 26 Alkaline Phosphatase 75 Creatine Kinase 521 H Creatine Kinase Index 0.2 CK-MB (CK-2) 1.50 Troponin I < 0.02 Total Protein 8.3 H Albumin 4.0 Triglycerides 265 H Cholesterol 439 H Total LDL Cholesterol 301 H HDL Cholesterol 51 Blood Type Antibody Screen 03/14/18 03/14/18 13:18 13:18 WBC RBC Hgb Hct MCV MCH MCHC RDW Plt Count MPV Absolute Neuts (auto) Neutrophils % Lymphocytes % Monocytes % Eosinophils % Basophils % Nucleated RBC % PT with INR 12.60 INR 1.12 Sodium Potassium Chloride Carbon Dioxide Anion Gap BUN Creatinine Creat Clearance w eGFR Random Glucose Calcium Total Bilirubin AST ALT Alkaline Phosphatase Creatine Kinase Creatine Kinase Index CK-MB (CK-2) Troponin I Total Protein Albumin Triglycerides Cholesterol Total LDL Cholesterol HDL Cholesterol Blood Type A POSITIVE Antibody Screen Negative ASSESSMENT/PLAN 57 year-old female with a significant PMH of HTN, TBI, multiple CVAs and brain aneurysms s/p repairs, seizure disorder, and bipolar disorder. Placed on observation for headache and worsening of chronic left-sided weakness. r/o CVA --CT head x 2: chronic infarcts, no acute process seen --seen and evaluated by neurology: age-related atrophy and chronic left basal ganglia infarct noted; does not require further imaging as symptoms improved and without deficits. Hypertension --hold antihypertensives Seizure disorder --stable, continue Keppra Bipolar disorder --continue Vivi Ang Visit type - Emergency Visit Emergency Visit: Yes ED Registration Date: 03/14/18 Care time: The patient presented to the Emergency Department on the above date and was hospitalized for further evaluation of their emergent condition. - New Patient This patient is new to me today: Yes Date on this admission: 03/18/18 - Critical Care Critical Care patient: No Hospitalist Screening - Colonoscopy Questionnaire Colonoscopy Questionnaire: Colonoscopy Questionnaire - Patient: 50 - 75 years old and never had a screening colonoscopy: Unknown History of colon or rectal polyps, or CA: Unknown History of IBD, Crohn's disease or UC: Unknown History of abdominal radiation therapy as a child: Unknown - Relative: 1 with colon or rectal CA, or polyps at age 60 or younger: Unknown Colon or rectal CA diagnosed at age 45 or younger: Unknown Multiple relatives with colon or rectal CA: Unknown - Outcome: Screening Result: Negative Screen
[2018-03-14 19:01] VITALS: BMI 39.9
[2018-03-14] MEDS ORDERED: POLYETHYLENE GLYCOL 3350 119 GM BTL PO PRN (20:49)
[2018-03-14] MEDS ORDERED: levETIRAcetam 500 MG TABLET (FP) PO SCH (22:00)
[2018-03-14] MEDS ORDERED: DULoxetine HCL 30 MG CAPSULE.DR (FP) PO SCH (22:00)
[2018-03-14] MEDS ORDERED: GABAPENTIN 300 MG CAPSULE (FP) PO SCH (22:00)
[2018-03-14] MEDS: POTASSIUM CHLORIDE TABS 20 MEQ TABLET.ER (FP) PO SCH (23:01)
[2018-03-15] MEDS: POTASSIUM CHLORIDE TABS 20 MEQ TABLET.ER (FP) PO SCH (06:21)
[2018-03-15 06:39] LABS: EOS % 1.5 % (0-4.5); HEMATOCRIT 39.4 % (32.4-45.2); HEMOGLOBIN 13.6 GM/dL (10.7-15.3); MCH 31.2 pg (25.7-33.7); MCHC 34.5 g/dl (32.0-36.0); MEAN CELL VOLUME 90.5 fl (80-96); MEAN PLT VOLUME 8.9 fl (7.5-11.1); MONO % 4.8 % (3.8-10.2); NEUT % 45.7 % (42.8-82.8); PLATELET COUNT 246 K/MM3 (134-434); RBC 4.35 M/mm3 (3.60-5.2); RDW 18.5 % (11.6-15.6)
[2018-03-15 06:53] LABS: ALBUMIN 3.8 g/dl (3.4-5.0); ANION GAP 9 (8-16); BLOOD UREA NITROGEN 5 mg/dL (7-18); CALCIUM 8.6 mg/dL (8.5-10.1); CHLORIDE 107 mmol/L (98-107); CO2 28 mmol/L (21-32); GLUCOSE,RANDOM 81 mg/dL (74-106); MAGNESIUM 2.6 mg/dL (1.8-2.4); POTASSIUM 3.5 mmol/L (3.5-5.1); SODIUM 144 mmol/L (136-145)
[2018-03-15 06:58] LABS: ALK PHOS 73 U/L (45-117); BILIRUBIN,TOTAL 0.6 mg/dL (0.2-1.0); CHOLESTEROL 455 mg/dL (50-200); CREATININE 1.4 mg/dL (0.55-1.02); SGOT/AST 36 U/L (15-37); SGPT/ALT 24 U/L (12-78); TOT PROT 7.9 g/dl (6.4-8.2)
[2018-03-15] MEDS ORDERED: levETIRAcetam 500 MG TABLET (FP) PO SCH (07:00)
--- NOTE | 2018-03-15 09:28 | CONSULT ---
Consult - text type - Consultation Consultation Note: Neurology HISTORY OF PRESENT ILLNESS: 57 year-old female with a significant PMH of HTN, TBI, multiple CVAs and brain aneurysms s/p repairs, seizure disorder, and bipolar disorder who presents to the ED with left-sided headache and left sided face numbness x 1 day. The patient states she experienced the left sided headache after waking up morning prior to admission. She has a history of intermittent headaches and left-sided sensory deficits but decided to come to the ED today as her symptoms did not resolve within 30 minutes as she states they usually do. On admission patient states she has had headache and worsening left-sided weakness for two weeks. She was tearful and states she under great stress from her children. This Am, feeling better and no deficits noted. No weakness or speech disturbance. CT head reviewd and without acute changes. Age related atrophy and chronic L basal ganglia infarct noted. Recent Travel: No PAST MEDICAL HISTORY: Hypertension Traumatic brain injury Multiple CVAs Brain aneurysms Seizure disorder Carpal tunnel syndrome Bipolar disorder PAST SURGICAL HISTORY: Left pterional craniotomy Aneurysmectomies x3 (2009) Social History: Smoking: current every day Alcohol: Drugs: Family History: Allergies acetaminophen [From NyQuil] Allergy (Verified 03/14/18 12:43) dextromethorphan [From NyQuil] Allergy (Verified 03/14/18 12:43) diphenhydramine HCl [From Benadryl] Allergy (Verified 03/14/18 12:43) doxylamine [From NyQuil] Allergy (Verified 03/14/18 12:43) ibuprofen [From Advil] Allergy (Verified 03/14/18 12:43) paroxetine HCl [From Paxil] Allergy (Verified 03/14/18 12:43) pseudoephedrine [From NyQuil] Allergy (Verified 03/14/18 12:43) pseudoephedrine HCl [From Sudafed] Allergy (Verified 03/14/18 12:43) rofecoxib [From Vioxx] Allergy (Verified 03/14/18 12:43) HOME MEDICATIONS: Home Medications Medication Instructions Recorded Amlodipine Besylate [Norvasc -] 2.5 mg PO DAILY 12/09/15 Diclofenac Sodium [Voltaren] 100 gm TP BID 12/09/15 Doxepin HCl 200 mg PO HS 12/09/15 Hydromorphone HCl [Dilaudid] 4 mg PO Q6H PRN 12/09/15 Levetiracetam [Keppra] 1,500 mg PO HS 12/09/15 Polyethylene Glycol 3350 [Miralax 17 gm PO DAILY PRN #1 bottle 12/09/15 255 gm Btl] Pregabalin [Lyrica] 225 mg PO DAILY 12/09/15 levETIRAcetam [Keppra -] 1,000 mg PO AM 12/09/15 Acetaminophen/Caffeine/Butalb 1 tab PO Q4H 03/14/18 [Fioricet -] Atenolol [Tenormin -] 25 mg PO DAILY 03/14/18 Duloxetine HCl [Cymbalta] 30 mg PO HS 03/14/18 Gabapentin [Neurontin] 600 mg PO HS 03/14/18 Ropinirole HCl 0.5 mg PO DAILY 03/14/18 REVIEW OF SYSTEMS CONSTITUTIONAL: Absent: fever, chills, diaphoresis, generalized weakness, malaise, loss of appetite, weight change HEENT: Absent: rhinorrhea, nasal congestion, throat pain, throat swelling, difficulty swallowing, mouth swelling, ear pain, eye pain, visual changes CARDIOVASCULAR: Absent: chest pain, syncope, palpitations, irregular heart rate, lightheadedness , peripheral edema RESPIRATORY: Absent: cough, shortness of breath, dyspnea with exertion, orthopnea, wheezing, stridor, hemoptysis GASTROINTESTINAL: Absent: abdominal pain, abdominal distension, nausea, vomiting, diarrhea, constipation, melena, hematochezia GENITOURINARY: Absent: dysuria, frequency, urgency, hesitancy, hematuria, flank pain, genital pain MUSCULOSKELETAL: Absent: myalgia, arthralgia, joint swelling, back pain, neck pain SKIN: Absent: rash, itching, pallor HEMATOLOGIC/IMMUNOLOGIC: Absent: easy bleeding, easy bruising, lymphadenopathy, frequent infections ENDOCRINE: Absent: unexplained weight gain, unexplained weight loss, heat intolerance, cold intolerance NEUROLOGIC: +headache, left-sided facial numbness, left-sided weakness Absent: focal weakness or paresthesias, dizziness, unsteady gait, seizure, mental status changes, bladder or bowel incontinence PSYCHIATRIC: +anxiety Absent: depression, suicidal or homicidal ideation, hallucinations. PHYSICAL EXAMINATION Vital Signs Temperature 98.2 F 03/15/18 05:00 Pulse Rate 73 03/15/18 05:00 Respiratory Rate 16 03/15/18 05:00 Blood Pressure 124/85 03/15/18 05:00 O2 Sat by Pulse Oximetry (%) 99 03/14/18 21:00 GENERAL: Awake, alert, and fully oriented, in no acute distress. HEAD: Normal with no signs of trauma. EYES: Pupils equal, round and reactive to light, extraocular movements intact, sclera anicteric, conjunctiva clear. No lid lag. EARS, NOSE, THROAT: Ears normal, nares patent, oropharynx clear without exudates. Moist mucous membranes. NECK: Normal range of motion, supple without lymphadenopathy, JVD, or masses. LUNGS: Breath sounds equal, clear to auscultation bilaterally. No wheezes, and no crackles. No accessory muscle use. HEART: Regular rate and rhythm, normal S1 and S2 without murmur, rub or gallop. ABDOMEN: Soft, nontender, not distended, normoactive bowel sounds, no guarding, no rebound, no masses. No hepatomegaly or splenomegaly. MUSCULOSKELETAL: Normal range of motion at all joints. No bony deformities or tenderness. No CVA tenderness. UPPER EXTREMITIES: 2+ pulses, warm, well-perfused. No cyanosis. No clubbing. No peripheral edema. LOWER EXTREMITIES: 2+ pulses, warm, well-perfused. No calf tenderness. No peripheral edema. NEUROLOGICAL: Cranial nerves II-XII intact. Normal speech, moves all ext. equally, sensory intact, gait deferred Laboratory Results - last 24 hr 03/14/18 03/14/18 03/14/18 13:12 13:12 13:12 WBC 4.7 RBC 4.23 Hgb 13.1 Hct 38.6 MCV 91.5 MCH 30.9 MCHC 33.8 RDW 18.2 H Plt Count 257 D MPV 9.3 D Absolute Neuts (auto) 2.1 Neutrophils % 45.6 D Lymphocytes % 47.0 H D Monocytes % 4.8 Eosinophils % 2.0 Basophils % 0.6 Nucleated RBC % 0 PT with INR INR Sodium 141 Potassium 3.1 L Chloride 102 Carbon Dioxide 31 Anion Gap 8 BUN 5 L Creatinine 1.6 H Creat Clearance w eGFR 33.34 Random Glucose 83 Calcium 9.0 Total Bilirubin 0.4 AST 36 ALT 26 Alkaline Phosphatase 75 Creatine Kinase 521 H Creatine Kinase Index 0.2 CK-MB (CK-2) 1.50 Troponin I < 0.02 Total Protein 8.3 H Albumin 4.0 Triglycerides 265 H Cholesterol 439 H Total LDL Cholesterol 301 H HDL Cholesterol 51 Blood Type Antibody Screen 03/14/18 03/14/18 13:18 13:18 WBC RBC Hgb Hct MCV MCH MCHC RDW Plt Count MPV Absolute Neuts (auto) Neutrophils % Lymphocytes % Monocytes % Eosinophils % Basophils % Nucleated RBC % PT with INR 12.60 INR 1.12 Sodium Potassium Chloride Carbon Dioxide Anion Gap BUN Creatinine Creat Clearance w eGFR Random Glucose Calcium Total Bilirubin AST ALT Alkaline Phosphatase Creatine Kinase Creatine Kinase Index CK-MB (CK-2) Troponin I Total Protein Albumin Triglycerides Cholesterol Total LDL Cholesterol HDL Cholesterol Blood Type A POSITIVE Antibody Screen Negative ASSESSMENT/PLAN 57 year-old female with a significant PMH of HTN, TBI, multiple CVAs and brain aneurysms s/p repairs, seizure disorder, and bipolar disorder who presents to the ED with left-sided headache and left sided face numbness x 1 day. The patient states she experienced the left sided headache after waking up morning prior to admission. She has a history of intermittent headaches and left-sided sensory deficits but decided to come to the ED today as her symptoms did not resolve within 30 minutes as she states they usually do. On admission patient states she has had headache and worsening left-sided weakness for two weeks. She was tearful and states she under great stress from her children. This Am, feeling better and no deficits noted. No weakness or speech disturbance. CT head reviewd and without acute changes. Age related atrophy and chronic L basal ganglia infarct noted. Would not require further imaging as symptoms improved and without deficits. Continue monitoring BP, maintain normotensive range. Relaxation recommended, possibly stress related. Maintain hydration.
[2018-03-15] MEDS ORDERED: amLODIPine BESYLATE 2.5 MG TABLET (FP) PO SCH (10:00)
[2018-03-15] MEDS ORDERED: rOPINIRole HCL 0.5 MG TABLET PO SCH (10:00)
[2018-03-15] MEDS ORDERED: ATENOLOL 25 MG TABLET (FP) PO SCH (10:00)
[2018-03-15] MEDS ORDERED: PREGABALIN 75 MG CAPSULE PO SCH (10:00)
[2018-03-15 11:15] VITALS: BP 108/74; PULSE 72; TEMP 98
--- NOTE | 2018-03-15 11:54 | DS ---
Physical Exam: SUBJECTIVE: Patient seen and examined. Upset with the nursing staff. Removed peipheral line. Reinforced need to followup with PCP to discuss adjustment of bipolar meds. OBJECTIVE: Vital Signs Period Temp Pulse Resp BP Sys/Osei Pulse Ox Last 24 Hr 97.6 F-98.2 F 72-78 16-22 108-138/74-99 94-99 PHYSICAL EXAM GENERAL: The patient is awake, alert, and fully oriented, in no acute distress. HEAD: Normal with no signs of trauma. EYES: PERRL, extraocular movements intact, sclera anicteric, conjunctiva clear. ENT: Ears normal, nares patent, oropharynx clear without exudates, moist mucous membranes. NECK: Trachea midline, full range of motion, supple. LUNGS: Breath sounds equal, clear to auscultation bilaterally, no wheezes, no crackles, no accessory muscle use. HEART: Regular rate and rhythm, S1, S2 without murmur, rub or gallop. ABDOMEN: Soft, nontender, nondistended, normoactive bowel sounds, no guarding, no rebound, no hepatosplenomegaly, no masses. EXTREMITIES: 2+ pulses, warm, well-perfused, no edema. NEUROLOGICAL: Cranial nerves II through XII grossly intact. Normal speech, gait not observed. PSYCH: Normal mood, normal affect. SKIN: Warm, dry, normal turgor, no rashes or lesions noted. LABS Laboratory Results - last 24 hr 03/14/18 03/14/18 03/14/18 13:12 13:12 13:12 WBC 4.7 RBC 4.23 Hgb 13.1 Hct 38.6 MCV 91.5 MCH 30.9 MCHC 33.8 RDW 18.2 H Plt Count 257 D MPV 9.3 D Absolute Neuts (auto) 2.1 Neutrophils % 45.6 D Lymphocytes % 47.0 H D Monocytes % 4.8 Eosinophils % 2.0 Basophils % 0.6 Nucleated RBC % 0 PT with INR INR Sodium 141 Potassium 3.1 L Chloride 102 Carbon Dioxide 31 Anion Gap 8 BUN 5 L Creatinine 1.6 H Creat Clearance w eGFR 33.34 Random Glucose 83 Calcium 9.0 Magnesium Total Bilirubin 0.4 AST 36 ALT 26 Alkaline Phosphatase 75 Creatine Kinase 521 H Creatine Kinase Index 0.2 CK-MB (CK-2) 1.50 Troponin I < 0.02 Total Protein 8.3 H Albumin 4.0 Triglycerides 265 H Cholesterol 439 H Total LDL Cholesterol 301 H HDL Cholesterol 51 Blood Type Antibody Screen 03/14/18 03/14/18 03/14/18 13:18 13:18 16:34 WBC RBC Hgb Hct MCV MCH MCHC RDW Plt Count MPV Absolute Neuts (auto) Neutrophils % Lymphocytes % Monocytes % Eosinophils % Basophils % Nucleated RBC % PT with INR 12.60 INR 1.12 Sodium Potassium Chloride Carbon Dioxide Anion Gap BUN Creatinine Creat Clearance w eGFR Random Glucose Calcium Magnesium Total Bilirubin AST ALT Alkaline Phosphatase Creatine Kinase 487 H Creatine Kinase Index 0.3 CK-MB (CK-2) 1.84 Troponin I < 0.02 Total Protein Albumin Triglycerides Cholesterol Total LDL Cholesterol HDL Cholesterol Blood Type A POSITIVE Antibody Screen Negative 03/14/18 03/15/18 03/15/18 21:00 05:30 05:30 WBC 5.0 RBC 4.35 Hgb 13.6 Hct 39.4 MCV 90.5 MCH 31.2 MCHC 34.5 RDW 18.5 H Plt Count 246 MPV 8.9 Absolute Neuts (auto) 2.3 Neutrophils % 45.7 Lymphocytes % 47.0 H Monocytes % 4.8 Eosinophils % 1.5 Basophils % 1.0 Nucleated RBC % 0 PT with INR INR Sodium 144 Potassium 3.5 Chloride 107 Carbon Dioxide 28 Anion Gap 9 BUN 5 L Creatinine 1.4 H Creat Clearance w eGFR 38.90 Random Glucose 81 Calcium 8.6 Magnesium 2.6 H Total Bilirubin 0.6 AST 36 ALT 24 Alkaline Phosphatase 73 Creatine Kinase Creatine Kinase Index CK-MB (CK-2) Troponin I Total Protein 7.9 Albumin 3.8 Triglycerides Cholesterol 455 H Total LDL Cholesterol HDL Cholesterol Blood Type A POSITIVE Antibody Screen HOSPITAL COURSE: Date of Admission:03/14/18 Date of Discharge: 03/15/18 Pre hospital course 57 year-old female with a significant PMH of HTN, TBI, multiple CVAs and brain aneurysms s/p repairs, seizure disorder, and bipolar disorder who presents to the ED with left-sided headache and left sided face numbness x 1 day. The patient states she experienced the left sided headache after waking up yesterday morning. She has a history of intermittent headaches and left-sided sensory deficits but decided to come to the ED today as her symptoms did not resolve within 30 minutes as she states they usually do. On admission patient states she has had headache and worsening left-sided weakness for two weeks. She was tearful and states she under great stress from her children. Subsequent hospital course r/o CVA --CT head x 2: chronic infarcts, no acute process seen --seen and evaluated by neurology: age-related atrophy and chronic left basal ganglia infarct noted; does not require further imaging as symptoms improved and without deficits. Hypertension --resume antihypertensives on discharge Seizure disorder --stable, continued Keppra Bipolar disorder --continued Lyrica, Cymbalta Minutes to complete discharge: 35 Discharge Summary Reason For Visit: LEFT FACIAL NUMBNESS Current Active Problems Left facial numbness (Acute) Condition: Improved - Instructions Diet, Activity, Other Instructions: You should advise your primary care provider, Dr. Navarrete at [facility], that you were in the hospital. You may want to discuss your medications with him. He may want to adjust your anxiety medications. Return to the emergency department for any new or worsening symptoms. Referrals: Ajit Navarrete Dr. [Other] - 1 Week Disposition: HOME - Home Medications Comprehensive Discharge Medication List: Ambulatory Orders Amlodipine Besylate [Norvasc -] 2.5 mg PO DAILY 12/09/15 Diclofenac Sodium [Voltaren] 100 gm TP BID 12/09/15 Doxepin HCl 200 mg PO HS 12/09/15 Hydromorphone HCl [Dilaudid] 4 mg PO Q6H PRN 12/09/15 Levetiracetam [Keppra] 1,500 mg PO HS 12/09/15 Polyethylene Glycol 3350 [Miralax 255 gm Btl -] 17 gm PO DAILY PRN #1 bottle Pregabalin [Lyrica] 225 mg PO DAILY 12/09/15 levETIRAcetam [Keppra -] 1,000 mg PO AM 12/09/15 Acetaminophen/Caffeine/Butalb [Fioricet -] 1 tab PO Q4H 03/14/18 Atenolol [Tenormin -] 25 mg PO DAILY 03/14/18 Duloxetine HCl [Cymbalta] 30 mg PO HS 03/14/18 Gabapentin [Neurontin] 600 mg PO HS 03/14/18 Ropinirole HCl 0.5 mg PO DAILY 03/14/18 This patient is new to me today: No Emergency Visit: Yes ED Registration Date: 03/14/18 Care time: The patient presented to the Emergency Department on the above date and was hospitalized for further evaluation of their emergent condition. Critical Care patient: No - Discharge Referral Referred to [facility] No
--- NOTE | 2018-03-15 14:14 | EKG ---
Test Reason : Blood Pressure : / mmHG Vent. Rate : 075 BPM Atrial Rate : 075 BPM P-R Int : 148 ms QRS Dur : 098 ms QT Int : 428 ms P-R-T Axes : 030 -09 033 degrees QTc Int : 477 ms NORMAL SINUS RHYTHM LOW VOLTAGE QRS NONSPECIFIC T WAVE ABNORMALITY ABNORMAL ECG WHEN COMPARED WITH ECG OF 14-MAR-2018 13:34, NO SIGNIFICANT CHANGE WAS FOUND Confirmed by HOUSTON FLEMING MD ([id number]) on 03/15/2018 2:14:06 PM Referred By: DAKSHA JIMENEZ DR Confirmed By:HOUSTON FLEMING MD
== END 2018-03-15 13:14 | disposition home or self-care (01) ==
LOC: JER 12:08 → JERBED 15:54 → J4W 18:33
PROVIDERS: ADMIT Internal Medicine; ATTEND Nurse Practitioner Acute Care
PROC: 3E0337Z Introduction of Electrolytic and Water Balance Substance into Peripheral Vein, Percutaneous Approach (ICD-10-PCS; principal; 2018-03-14)
DX: R20.0 Anesthesia of skin (principal); I10 Essential (primary) hypertension; F31.9 Bipolar disorder, unspecified; F41.9 Anxiety disorder, unspecified; F17.210 Nicotine dependence, cigarettes, uncomplicated; G40.909 Epilepsy, unspecified, not intractable, without status epilepticus; I69.354 Hemiplegia and hemiparesis following cerebral infarction affecting left non-dominant side; Z86.79 Personal history of other diseases of the circulatory system; Z88.8 Allergy status to other drugs, medicaments and biological substances; Z87.820 Personal history of traumatic brain injury
CPT/HCPCS: 36415; 70450-TC; 71045-TC-FY; 80053; 82465; 82550; 82553; 83718; 83721; 83735; 84478; 84484; 85025; 85610; 86850; 86900; 86901; 93005; 93010; 99285-25; G0378; J7030

== ENCOUNTER 2018-04-26 10:54 | Emergency (ER) | payer OTHER ==
[2018-04-26 11:05] VITALS: BP 143/101; PULSE 75; TEMP 98.3; BMI 38.1
--- NOTE | 2018-04-26 11:43 | PDOC ---
Attending Attestation - Resident Resident Name: BalwinderSeamus - ED Attending Attestation I have performed the following: I have examined & evaluated the patient, The case was reviewed & discussed with the resident, I agree w/resident's findings & plan, Exceptions are as noted - HPI HPI: 58 yo F history CVA, headache, SZ, TBI, HTN, Bipolar, anxiety presents with AYERS. Pt with prior history of headaches, and states this is typical of her prior headache symptoms. She presented to ED today because she states it was worse this morning. - Physicial Exam PE: GENERAL: Awake, alert, and fully oriented, in no acute distress HEAD: No signs of trauma EYES: PERRLA, EOMI, sclera anicteric, conjunctiva clear ENT: Auricles normal inspection, hearing grossly normal, nares patent, oropharynx clear without exudates. Moist mucosa NECK: Normal ROM, supple, no lymphadenopathy, JVD, or masses LUNGS: Breath sounds equal, clear to auscultation bilaterally. No wheezes, and no crackles HEART: Regular rate and rhythm, normal S1 and S2, no murmurs, rubs or gallops ABDOMEN: Soft, nontender, normoactive bowel sounds. No guarding, no rebound. No masses EXTREMITIES: Normal range of motion, no edema. No clubbing or cyanosis. No cords, erythema, or tenderness NEUROLOGICAL: Cranial nerves II through XII grossly intact. Normal speech. Motor and sensation intact. SKIN: Warm, Dry, normal turgor, no rashes or lesions noted. - Medical Decision Making Pt with no new neuro deficits on exam. Initially requesting dilaudid for pain, however, after counseling her that opioids are not preferred management for headache, she took fioricet, reported improvement. No acute findings on CTH. Suspicion for ICH very low based on presentation.
[2018-04-26 12:07] LABS: BASO % 0.9 % (0-2.0); HEMATOCRIT 33.2 % (32.4-45.2); HEMOGLOBIN 11.3 GM/dL (10.7-15.3); LYMPH % 43.2 % (8-40); MCH 31.9 pg (25.7-33.7); MEAN CELL VOLUME 93.9 fl (80-96); MEAN PLT VOLUME 9.1 fl (7.5-11.1); MONO % 5.5 % (3.8-10.2); NEUT % 49.4 % (42.8-82.8); PLATELET COUNT 199 K/MM3 (134-434); RBC 3.54 M/mm3 (3.60-5.2); RDW 16.4 % (11.6-15.6); WHITE BLOOD COUNT 5.2 K/mm3 (4.0-10.0)
[2018-04-26] MEDS ORDERED: ACETAMINOPHEN/CAFFEINE/BUTALBITAL 1 TAB PO ONE (12:37)
[2018-04-26 12:40] LABS: ALBUMIN 3.6 g/dl (3.4-5.0); ALK PHOS 58 U/L (45-117); ANION GAP 10 MMOL/L (8-16); BILIRUBIN,TOTAL 0.5 mg/dL (0.2-1.0); BLOOD UREA NITROGEN 6 mg/dL (7-18); CALCIUM 8.7 mg/dL (8.5-10.1); CHLORIDE 107 mmol/L (98-107); CO2 25 mmol/L (21-32); CREATININE 1.3 mg/dL (0.55-1.02); GLUCOSE,RANDOM 82 mg/dL (74-106); SGPT/ALT 18 U/L (12-78); SODIUM 142 mmol/L (136-145); TOT PROT 7.4 g/dl (6.4-8.2)
[2018-04-26 12:43] LABS: POTASSIUM 3.2 mmol/L (3.5-5.1); SGOT/AST 23 U/L (15-37)
[2018-04-26] MEDS ORDERED: ACETAMINOPHEN/CAFFEINE/BUTALBITAL 1 TAB ONE (13:01)
--- NOTE | 2018-04-26 13:22 | PDOC ---
History of Present Illness - General Chief Complaint: Headache Stated Complaint: HEADACHE Time Seen by Provider: 04/26/18 11:06 History Source: Patient, Other (Aid) Exam Limitations: Other (poor historian) - History of Present Illness Initial Comments: 04/26/18 13:04 58 yo female pmh headaches, seizures, TBI, HTN, Bipolar, anxiety, 8 strokes and 3 aneurisms presents to the ED for a headache. 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 Patient states she Patient has residual right sided deficits of weakness and numbness and has difficulty describing any new findings. Patient complains of a headache for the past month but worsened this morning and is located in the frontal bone region, Admits to bilateral blurry vision, nausea, right sided weakness and numbness. Past History - Past Medical History Allergies/Adverse Reactions: Allergies Allergy/AdvReac Type Severity Reaction Status Date / Time acetaminophen [From NyQuil] Allergy Verified 03/14/18 12:43 dextromethorphan Allergy Verified 03/14/18 12:43 [From NyQuil] diphenhydramine HCl Allergy Verified 03/14/18 12:43 [From Benadryl] doxylamine [From NyQuil] Allergy Verified 03/14/18 12:43 ibuprofen [From Advil] Allergy Verified 03/14/18 12:43 paroxetine HCl [From Paxil] Allergy Verified 03/14/18 12:43 pseudoephedrine [From NyQuil] Allergy Verified 03/14/18 12:43 pseudoephedrine HCl Allergy Verified 03/14/18 12:43 [From Sudafed] rofecoxib [From Vioxx] Allergy Verified 03/14/18 12:43 Home Medications: Ambulatory Orders Amlodipine Besylate [Norvasc -] 2.5 mg PO DAILY 12/09/15 Diclofenac Sodium [Voltaren] 100 gm TP BID 12/09/15 Doxepin HCl 200 mg PO HS 12/09/15 Hydromorphone HCl [Dilaudid] 4 mg PO Q6H PRN 12/09/15 Levetiracetam [Keppra] 1,500 mg PO HS 12/09/15 Polyethylene Glycol 3350 [Miralax 255 gm Btl -] 17 gm PO DAILY PRN #1 bottle Pregabalin [Lyrica] 225 mg PO DAILY 12/09/15 levETIRAcetam [Keppra -] 1,000 mg PO AM 12/09/15 Acetaminophen/Caffeine/Butalb [Fioricet -] 1 tab PO Q4H 03/14/18 Atenolol [Tenormin -] 25 mg PO DAILY 03/14/18 Duloxetine HCl [Cymbalta] 30 mg PO HS 03/14/18 Gabapentin [Neurontin] 600 mg PO HS 03/14/18 Ropinirole HCl 0.5 mg PO DAILY 03/14/18 Butalb/Acetaminophen/Caffeine [Fioricet 50-300-40 mg Capsule] 1 each PO DAILY # 7 capsule 04/26/18 COPD: No HTN: Yes Psychiatric Problems: Yes Seizures: Yes - Surgical History Neurologic Surgery: Yes (brain aneurysms x3 (2010)) - Immunization History Immunization Up to Date: Yes - Suicide/Smoking/Psychosocial Hx Smoking History: Current every day smoker Have you smoked in the past 12 months: Yes Number of Cigarettes Smoked Daily: 10 Information on smoking cessation initiated: No 'Breaking Loose' booklet given: 12/09/15 Hx Alcohol Use: No Drug/Substance Use Hx: No Substance Use Type: Marijuana Hx Substance Use Treatment: No Review of Systems - Review of Systems HEENTM: Yes: Blurred Vision (bilateral) Respiratory: Yes: Shortness of Breath Cardiac (ROS): No: Chest Pain : Yes: Burning Musculoskeletal: Yes: Back Pain Neurological: Yes: Numbness (right sided), Weakness (right sided) *Physical Exam - Vital Signs Last Vital Signs Temp Pulse Resp BP Pulse Ox 98.3 F 75 18 143/101 96 04/26/18 11:03 04/26/18 11:03 04/26/18 11:03 04/26/18 11:03 04/26/18 11:03 - Physical Exam General Appearance: Yes: Nourished, Appropriately Dressed, Mild Distress HEENT: positive: EOMI, KASSIDY, Photophobia, Hearing Grossly Normal Respiratory/Chest: positive: Lungs Clear, Normal Breath Sounds. negative: Wheezing Cardiovascular: positive: Regular Rhythm, Regular Rate, S1, S2. negative: Edema , Murmur Vascular Pulses: Dorsalis-Pedis (R): 3+, Doralis-Pedis (L): 3+ Gastrointestinal/Abdominal: positive: Normal Bowel Sounds, Flat, Soft. negative : Pulsatile Mass, Distended, Guarding, Rebound, Tenderness Musculoskeletal: positive: Normal Inspection Extremity: positive: Normal Capillary Refill, Normal Range of Motion Integumentary: positive: Normal Color, Dry, Warm Neurologic: positive: Alert, Normal Mood/Affect, Normal Response, Other (right side motor in upper and lower ext 4/5 vs right side upper and lower 5/5). negative: Confused, Disoriented ED Treatment Course - LABORATORY CBC & Chemistry Diagram: 04/26/18 11:58 04/26/18 11:58 - ADDITIONAL ORDERS Additional order review: Laboratory Results 04/26/18 11:58 Sodium 142 Potassium 3.2 L Chloride 107 Carbon Dioxide 25 Anion Gap 10 BUN 6 L Creatinine 1.3 H Creat Clearance w eGFR 42.22 Random Glucose 82 Calcium 8.7 Total Bilirubin 0.5 AST 23 ALT 18 Alkaline Phosphatase 58 Creatine Kinase 255 H Troponin I < 0.02 Total Protein 7.4 Albumin 3.6 04/26/18 11:58 RBC 3.54 L MCV 93.9 MCHC 34.0 RDW 16.4 H MPV 9.1 Neutrophils % 49.4 Lymphocytes % 43.2 H Monocytes % 5.5 Eosinophils % 1.0 Basophils % 0.9 - RADIOLOGY Radiology Studies Ordered: Category Date Time Status HEAD CT WITHOUT CONTRAST [CT] Stat CT Scan 04/26/18 11:47 Ordered CHEST - PA [RAD] Stat Radiology 04/26/18 11:47 Taken Medical Decision Making - Medical Decision Making 04/26/18 13:50 58 yo female PMH TBI, 8 strokes and 3 aneurysms presents to ED for AYERS for the past month. No new changes today and seems to be a chronic issue for patient. On *DC/Admit/Observation/Transfer Diagnosis at time of Disposition: Head ache Qualifiers: Headache type: unspecified Headache chronicity pattern: chronic headache Intractability: not intractable Qualified Code(s): R51 - Headache - Discharge Dispostion Disposition: HOME Condition at time of disposition: Fair Decision to Admit order: No - Referrals Referrals: familia, unknown [Other] Daniel Eldridge [Non Staff, Medical] - - Patient Instructions Printed Discharge Instructions: DI for Migraine, DI for Headache Additional Instructions: please take Fiorocet for your headache as prescribed. 1 time daily for 7 days as needed. Please follow up with your Family Doctor and make an appointment with your neurologist within the next 2 days. Please return to the ER for new or worsening symptoms such as: new one sided weakness, loss of vision/blurry vision, incontinence. Thank you - Post Discharge Activity
== END 2018-04-26 14:45 | disposition home or self-care (01) ==
LOC: JER 10:54
DX: R51 Headache (principal); I10 Essential (primary) hypertension; G40.909 Epilepsy, unspecified, not intractable, without status epilepticus; F31.9 Bipolar disorder, unspecified; F41.9 Anxiety disorder, unspecified; I69.851 Hemiplegia and hemiparesis following other cerebrovascular disease affecting right dominant side; Z87.820 Personal history of traumatic brain injury; Z88.8 Allergy status to other drugs, medicaments and biological substances
CPT/HCPCS: 36415; 70450-TC; 71045-TC-FY; 80053; 82550; 82553; 84484; 85025; 99282-25

== ENCOUNTER 2018-09-08 12:35 | Observation (INO) | payer OTHER ==
[2018-09-08 12:50] VITALS: BMI 36.6
[2018-09-08] MEDS ORDERED: SODIUM CHLORIDE 1,000 ML IV SCH (13:15)
[2018-09-08 13:50] LABS: BASO % 0.5 % (0-2.0); EOS % 1.9 % (0-4.5); HEMATOCRIT 35.9 % (32.4-45.2); HEMOGLOBIN 12.5 GM/dL (10.7-15.3); LYMPH % 44.7 % (8-40); MCH 32.4 pg (25.7-33.7); MCHC 34.7 g/dl (32.0-36.0); MEAN CELL VOLUME 93.4 fl (80-96); MEAN PLT VOLUME 8.9 fl (7.5-11.1); MONO % 4.4 % (3.8-10.2); NEUT % 48.5 % (42.8-82.8); PLATELET COUNT 217 K/MM3 (134-434); RBC 3.84 M/mm3 (3.60-5.2); RDW 16.6 % (11.6-15.6); WHITE BLOOD COUNT 5.2 K/mm3 (4.0-10.0)
[2018-09-08 14:01] LABS: ALBUMIN 4.1 g/dl (3.4-5.0); ALK PHOS 62 U/L (45-117); ANION GAP 7 MMOL/L (8-16); BILIRUBIN,TOTAL 0.4 mg/dL (0.2-1); BLOOD UREA NITROGEN 7 mg/dL (7-18); CALCIUM 9.1 mg/dL (8.5-10.1); CHLORIDE 104 mmol/L (98-107); CHOLESTEROL 344 mg/dL (50-200); CO2 31 mmol/L (21-32); CREATININE 1.6 mg/dL (0.55-1.3); GLUCOSE,RANDOM 93 mg/dL (74-106); HDL CHOLESTEROL 56 mg/dL (40-60); POTASSIUM 3.8 mmol/L (3.5-5.1); SGOT/AST 37 U/L (15-37); SGPT/ALT 47 U/L (13-61); SODIUM 141 mmol/L (136-145); TOT PROT 8.3 g/dl (6.4-8.2); TRIGLYCERIDES 206 mg/dL (0-150)
[2018-09-08 14:02] LABS: INR 1.09 (0.83-1.09); PROTHROMBIN TIME (PATIENT) 12.9 SEC (9.7-13.0)
--- NOTE | 2018-09-08 14:02 | PDOC ---
History of Present Illness - General Chief Complaint: Syncope/Near Syncope Stated Complaint: WEAKNESS Time Seen by Provider: 09/08/18 13:09 - History of Present Illness Initial Comments: 09/08/18 14:37 The patient is a 58 year old female, with a past medical history of TBI, HTN, bipolar disorder, anxiety, restless leg syndrome, carpal tunnel syndrome, seizures (on keppra), 8 strokes (residual left sided weakness and numbness) and 3 aneurysms (last one coiled in 2009, who presents to the emergency department s /p syncope with AMS and headache. As per patients son at bedside, she was sitting in a chair when she began to slide off. Patients son states that she seemed more lethargic than usual, slow to respond to his questions. He believes this started about 20 minutes prior to arrival to ED. He notes pt is still not at her baseline. Pt endorses feeling unwell but with no new focal weakness or numbness. She states that she has had a headache since last night. She denies recent fevers, chills, or dizziness. She denies recent nausea, vomit , diarrhea or constipation. She denies recent dysuria, frequency, urgency or hematuria. She denies recent chest pain or shortness of breath. Allergies: Acetaminophen, dextromethorphan, diphenhydramine, doxylamine, ibuprofen, paroxetine, pseudoephedrine, rofecoxib Past History - Past Medical History Allergies/Adverse Reactions: Allergies Allergy/AdvReac Type Severity Reaction Status Date / Time acetaminophen [From NyQuil] Allergy Verified 09/08/18 12:47 dextromethorphan Allergy Verified 09/08/18 12:47 [From NyQuil] diphenhydramine HCl Allergy Verified 09/08/18 12:47 [From Benadryl] doxylamine [From NyQuil] Allergy Verified 09/08/18 12:47 ibuprofen [From Advil] Allergy Verified 09/08/18 12:47 paroxetine HCl [From Paxil] Allergy Verified 09/08/18 12:47 pseudoephedrine [From NyQuil] Allergy Verified 09/08/18 12:47 pseudoephedrine HCl Allergy Verified 09/08/18 12:47 [From Sudafed] rofecoxib [From Vioxx] Allergy Verified 09/08/18 12:47 Home Medications: Ambulatory Orders Amlodipine Besylate [Norvasc -] 2.5 mg PO DAILY 12/09/15 Diclofenac Sodium [Voltaren] 100 gm TP BID 12/09/15 Doxepin HCl 200 mg PO HS 12/09/15 Hydromorphone HCl [Dilaudid] 4 mg PO Q6H PRN 12/09/15 Levetiracetam [Keppra] 1,500 mg PO HS 12/09/15 Polyethylene Glycol 3350 [Miralax 255 gm Btl -] 17 gm PO DAILY PRN #1 bottle Pregabalin [Lyrica] 225 mg PO DAILY 12/09/15 levETIRAcetam [Keppra -] 1,000 mg PO AM 12/09/15 Acetaminophen/Caffeine/Butalb [Fioricet -] 1 tab PO Q4H 03/14/18 Atenolol [Tenormin -] 25 mg PO DAILY 03/14/18 Duloxetine HCl [Cymbalta] 30 mg PO HS 03/14/18 Gabapentin [Neurontin] 600 mg PO HS 03/14/18 Ropinirole HCl 0.5 mg PO DAILY 03/14/18 Butalb/Acetaminophen/Caffeine [Fioricet 50-300-40 mg Capsule] 1 each PO DAILY # 7 capsule 04/26/18 COPD: No HTN: Yes Psychiatric Problems: Yes Seizures: Yes - Surgical History Neurologic Surgery: Yes (brain aneurysms x3 (2010)) - Immunization History Immunization Up to Date: Yes - Suicide/Smoking/Psychosocial Hx Smoking History: Unknown if ever smoked Have you smoked in the past 12 months: No Number of Cigarettes Smoked Daily: 10 Information on smoking cessation initiated: No 'Breaking Loose' booklet given: 12/09/15 Hx Alcohol Use: No Drug/Substance Use Hx: Yes Substance Use Type: Marijuana Hx Substance Use Treatment: No Review of Systems - Review of Systems Comments:: 09/08/18 14:57 GENERAL/CONSTITUTIONAL: No fever or chills. No weakness. HEAD, EYES, EARS, NOSE AND THROAT: No change in vision. No ear pain or discharge. No sore throat. CARDIOVASCULAR: No chest pain, no shortness of breath, no loss of consciousness RESPIRATORY: No cough, wheezing, or hemoptysis. GASTROINTESTINAL: No nausea, vomiting, diarrhea or constipation. GENITOURINARY: No dysuria, frequency, or change in urination. MUSCULOSKELETAL: No joint or muscle swelling or pain. No neck or back pain. SKIN: No rash NEUROLOGIC: + AMS, + headache, No vertigo, no change in strength/sensation. ENDOCRINE: No increased thirst. No abnormal weight change. HEMATOLOGIC/LYMPHATIC: No anemia, easy bleeding, or history of blood clots. ALLERGIC/IMMUNOLOGIC: No hives or skin allergy. *Physical Exam - Vital Signs Last Vital Signs Temp Pulse Resp BP Pulse Ox 97.1 F L 74 18 130/90 99 09/08/18 12:47 09/08/18 12:47 09/08/18 12:47 09/08/18 12:47 09/08/18 12:47 - Physical Exam Comments: 09/08/18 14:57 GENERAL: Awake, alert, and fully oriented, in no acute distress. HEAD: No signs of trauma EYES: PERRLA, EOMI, sclera anicteric, conjunctiva clear ENT: Auricles normal inspection, hearing grossly normal, nares patent, oropharynx clear without exudates. Moist mucosa NECK: Nontender, no stepoffs, Normal ROM, supple, no lymphadenopathy, JVD, or masses LUNGS: Breath sounds equal, clear to auscultation bilaterally. No wheezes, and no crackles HEART: Regular rate and rhythm, normal S1 and S2, no murmurs, rubs or gallops ABDOMEN: Soft, nontender, normoactive bowel sounds. No guarding, no rebound. No masses EXTREMITIES: Normal range of motion, no edema. No clubbing or cyanosis. No cords, erythema, or tenderness NEUROLOGICAL: Cranial nerves II through XII intact. 5/5 strength and sensation in all extremities, Normal speech, normal gait, normal cerebellar function SKIN: Warm, Dry, normal turgor, no rashes or lesions noted. Moderate Sedation - Procedure Monitoring Vital Signs: Procedure Monitoring Vital Signs Temperature 97.1 F L 09/08/18 12:47 Pulse Rate 74 09/08/18 12:47 Respiratory Rate 18 09/08/18 12:47 Blood Pressure 130/90 09/08/18 12:47 O2 Sat by Pulse Oximetry (%) 99 09/08/18 12:47 ED Treatment Course - LABORATORY CBC & Chemistry Diagram: 09/08/18 13:29 09/08/18 13:29 - ADDITIONAL ORDERS Additional order review: Laboratory Results 09/08/18 13:29 Sodium 141 Potassium 3.8 Chloride 104 Carbon Dioxide 31 Anion Gap 7 L BUN 7 Creatinine 1.6 H Creat Clearance w eGFR 33.22 Random Glucose 93 Calcium 9.1 Total Bilirubin 0.4 AST 37 ALT 47 Alkaline Phosphatase 62 Creatine Kinase 548 H Troponin I < 0.02 Total Protein 8.3 H Albumin 4.1 Triglycerides 206 H Cholesterol 344 H Total LDL Cholesterol 245 H HDL Cholesterol 56 09/08/18 13:29 RBC 3.84 MCV 93.4 MCHC 34.7 RDW 16.6 H MPV 8.9 Neutrophils % 48.5 Lymphocytes % 44.7 H Monocytes % 4.4 Eosinophils % 1.9 D Basophils % 0.5 - RADIOLOGY Radiology Studies Ordered: Category Date Time Status HEAD CT (STROKE) [CT] Stat CT Scan 09/08/18 13:15 Completed Medical Decision Making - Critical Care Time Total Critical Care Time (minutes): 45 Critical Care Statement: The care of this patient involved high complexity decision making to prevent further life threatening deterioration of the patient 's condition and/or to evaluate & treat vital organ system(s) failure or risk of failure. - Medical Decision Making 09/08/18 14:59 58 F with h/o seizures, CVA, aneurysms, presenting with acute onset AMS this morning, as well as AYERS since last night. Pt with no focal neuro deficits but is lethargic and slow to respond on exam. Code tellez activated in ED. CT head shows no acute findings. Negative for ICH. Pt seen by Dr. Cam in ED, who suspects pt likely had seizure, less likely a CVA. He recommends obs admission to ensure return to baseline mentation. Will order MRI at this time. 09/08/18 15:29 Pt admitted to hospitalist *DC/Admit/Observation/Transfer Diagnosis at time of Disposition: Altered mental state - Discharge Dispostion Decision to Admit order: Yes - Referrals Referrals: Beatrice Hart, BRIGID [Emergency Nurse] - - Patient Instructions - Post Discharge Activity - Attestations Physician Attestion: 09/08/18 15:29 I, Dr. Dre Prasad MD, attest that this document has been prepared under my direction and personally reviewed by me in its entirety. I further attest, that it accurately reflects all work, treatment, procedures and medical decision -making performed by me.
[2018-09-08 16:17] LABS: URINE APPEARANCE CLEAR; URINE BILIRUBIN NEGATIVE (<2.0 mg/dL); URINE COLOR LTYELLOW; URINE GLUCOSE (UA) NEGATIVE (NEGATIVE); URINE KETONE NEGATIVE (NEGATIVE); URINE LEUK ESTERASE NEGATIVE (NEGATIVE); URINE NITRITE NEGATIVE (NEGATIVE); URINE PROTEIN NEGATIVE (NEGATIVE); URINE UROBILINOGEN NEGATIVE mg/dL (0.2-1.0)
--- NOTE | 2018-09-08 17:06 | PN ---
Teaching Attending Note Name of Resident: Deepti Klein ATTENDING PHYSICIAN STATEMENT I saw and evaluated the patient. I reviewed the resident's note and discussed the case with the resident. I agree with the resident's findings and plan as documented. SUBJECTIVE: OBJECTIVE: ASSESSMENT AND PLAN: this is a 58 y/o f patient presented after the patient had lost her conciousness after she got out of bed and walked to her son, patient seemed confused after the incident - patient is on several medications that can cause drowsiness. cause of her syncope - Orthostatic changes vs seizure vs TIA plan: admit to tele obs consult neurology consult cardiology neurowatch seizure precaution fall precautions patient requires assistance to come out of the bed Hyperlipidemia: start the patient on High intensity statin - rosuvastatin 40mg or atorvastatin 80mg Check TSH HTN hold BP meds for now if there is a clinical suspicion for TIA trend troponin level x3 trend ecg x 3
--- NOTE | 2018-09-08 17:33 | HP ---
CHIEF COMPLAINT: s/p fall PCP: Dr. Parsons ([facility]) HISTORY OF PRESENT ILLNESS: 58F w/ pmhx of HTN, Bipolar d/o, anxiety, HTN, TBI, multiple CVAs and brain aneurysms s/p repairs, seizure disorder, and bipolar disorder was brought to the ED by his son s/p fall. Pt states she was getting out of bed this morning and as she was walking, she started to fall down slowly, down to her knees and then to the floor. The fall was witnessed by her son, Leonid; who states he did not witness any head injury during this time. At the time of fall, pt reported fever/chills, nausea/vomiting, shortness of breath, but denied chest pain. At the time, son also reported slurred speech, facial droop, and slower speech, but denied tongue biting and urinary/bowel incontinence. During initial presentation, pt's complaints were persistent R sided weakness (chronic) and numbness and tingling in her fingers and toes. ER course was notable for: (1) Cr 1.6, Flu 93 (2) Head CT showed old infarct in region of L basal ganglia, unchanged from (3) Recent Travel: Denies PAST MEDICAL HISTORY: Hypertension Traumatic brain injury Multiple CVAs Brain aneurysms Seizure disorder Carpal tunnel syndrome Bipolar disorder PAST SURGICAL HISTORY: Left pterional craniotomy Aneurysmectomies x3 (2009) Social History: Smokin PPD since 14 years old Alcohol: Denies Drugs: Denies Family History: Allergies acetaminophen [From NyQuil] Allergy (Verified 09/08/18 12:47) dextromethorphan [From NyQuil] Allergy (Verified 09/08/18 12:47) diphenhydramine HCl [From Benadryl] Allergy (Verified 09/08/18 12:47) doxylamine [From NyQuil] Allergy (Verified 09/08/18 12:47) ibuprofen [From Advil] Allergy (Verified 09/08/18 12:47) paroxetine HCl [From Paxil] Allergy (Verified 09/08/18 12:47) pseudoephedrine [From NyQuil] Allergy (Verified 09/08/18 12:47) pseudoephedrine HCl [From Sudafed] Allergy (Verified 09/08/18 12:47) rofecoxib [From Vioxx] Allergy (Verified 09/08/18 12:47) HOME MEDICATIONS: Home Medications Medication Instructions Recorded Amlodipine Besylate [Norvasc -] 2.5 mg PO DAILY 12/09/15 Diclofenac Sodium [Voltaren] 100 gm TP BID 12/09/15 Doxepin HCl 200 mg PO HS 12/09/15 Hydromorphone HCl [Dilaudid] 4 mg PO Q6H PRN 12/09/15 Levetiracetam [Keppra] 1,500 mg PO HS 12/09/15 Polyethylene Glycol 3350 [Miralax 17 gm PO DAILY PRN #1 bottle 12/09/15 255 gm Btl -] Pregabalin [Lyrica] 225 mg PO DAILY 12/09/15 levETIRAcetam [Keppra -] 1,000 mg PO AM 12/09/15 Acetaminophen/Caffeine/Butalb 1 tab PO Q4H 03/14/18 [Fioricet -] Atenolol [Tenormin -] 25 mg PO DAILY 03/14/18 Duloxetine HCl [Cymbalta] 30 mg PO HS 03/14/18 Gabapentin [Neurontin] 600 mg PO HS 03/14/18 Ropinirole HCl 0.5 mg PO DAILY 03/14/18 Butalb/Acetaminophen/Caffeine 1 each PO DAILY #7 capsule 04/26/18 [Fioricet 50-300-40 mg Capsule] REVIEW OF SYSTEMS CONSTITUTIONAL: +R-sided weakness, +malaise, -f/c HEENT: +visual changes, +mouth swelling, - CARDIOVASCULAR: +syncope, +lightheadedness, +dizziness RESPIRATORY: +glaser, -cough, -sob, orthopnea GASTROINTESTINAL: +diarrhea, -abd pain, -n/v, -constipation, -melena, - hematochezia GENITOURINARY: -dysuria, -frequency, -hematuria MUSCULOSKELETAL: +neck pain, -myalgia, -joint swelling, -back pain NEUROLOGIC: +focal weakness and paresthesias and b/l fingers and toes, + unsteady gait, -bladder/bowel incontinence PHYSICAL EXAMINATION Vital Signs - 24 hr 09/08/18 12:47 Temperature 97.1 F L Pulse Rate 74 Respiratory 18 Rate Blood Pressure 130/90 O2 Sat by Pulse 99 Oximetry (%) GENERAL: AAOx3. NAD. Resting comfortably in bed. HEENT: AT/NC. EOMI. KASSIDY. Dry mucus membranes. NECK: Normal range of motion, supple without lymphadenopathy, JVD, or masses. LUNGS: CTA B/L. +mild fine crackles b/l. -wheezes noted. HEART: RRR. Normal S1, S2. No murmurs noted. ABDOMEN: Obese. Soft, NT/ND. Hypoactive BS in all 4Q's. No rebound tenderness or guarding. MUSCULOSKELETAL: Normal range of motion at all joints. No bony deformities or tenderness. No CVA tenderness. 2+ dorsalis pedis pulses b/l. EXTREMITIES: 5/5 muscle strength in L u/l extremities. 4/5 muscle strength in R u/l extremities. NEUROLOGICAL: Cranial nerves II-XII intact. Normal speech. Facial symmetry noted. SKIN: Warm dry, scaly skin. Laboratory Results - last 24 hr 09/08/18 09/08/18 09/08/18 13:29 13:29 13:29 WBC 5.2 RBC 3.84 Hgb 12.5 Hct 35.9 MCV 93.4 MCH 32.4 MCHC 34.7 RDW 16.6 H Plt Count 217 MPV 8.9 Absolute Neuts (auto) 2.5 Neutrophils % 48.5 Lymphocytes % 44.7 H Monocytes % 4.4 Eosinophils % 1.9 D Basophils % 0.5 Nucleated RBC % 0 PT with INR 12.90 INR 1.09 Sodium 141 Potassium 3.8 Chloride 104 Carbon Dioxide 31 Anion Gap 7 L BUN 7 Creatinine 1.6 H Creat Clearance w eGFR 33.22 Random Glucose 93 Calcium 9.1 Total Bilirubin 0.4 AST 37 ALT 47 Alkaline Phosphatase 62 Creatine Kinase 548 H Creatine Kinase Index 0.5 CK-MB (CK-2) 2.9 Troponin I < 0.02 Total Protein 8.3 H Albumin 4.1 Triglycerides 206 H Cholesterol 344 H Total LDL Cholesterol 245 H HDL Cholesterol 56 Blood Type Antibody Screen 09/08/18 13:29 WBC RBC Hgb Hct MCV MCH MCHC RDW Plt Count MPV Absolute Neuts (auto) Neutrophils % Lymphocytes % Monocytes % Eosinophils % Basophils % Nucleated RBC % PT with INR INR Sodium Potassium Chloride Carbon Dioxide Anion Gap BUN Creatinine Creat Clearance w eGFR Random Glucose Calcium Total Bilirubin AST ALT Alkaline Phosphatase Creatine Kinase Creatine Kinase Index CK-MB (CK-2) Troponin I Total Protein Albumin Triglycerides Cholesterol Total LDL Cholesterol HDL Cholesterol Blood Type Cancelled Antibody Screen Cancelled CONSULT: Neuro- Dr. Cam Cardio- Dr. Steward IMAGING: * Head CT: neg ASSESSMENT/PLAN: 58F w/ pmhx of HTN, Bipolar d/o, anxiety, HTN, TBI, multiple CVAs and brain aneurysms s/p repairs, seizure disorder, and bipolar disorder was brought to the ED by his son s/p syncopal episode. #Syncope; likely 2/2 orthostatic hypotension vs. TIA, stroke, seizure episode -Pt had syncopal episode right after getting up from bed; obtain orthostatics to r/o orthostatic hypotension. Additionally, pt is only multiple s -Head CT neg -Cardio consult ordered -Neuro consult ordered; Per neuro, will obtain brain MRI -Admit to tele -Dysphagia screen/Fall precautions/Keep HOB elevated/neuro checks -TSH level ordered -Hold all sedating home meds: Gabapentin, Cymbalta, Doxepin, Pregabalin #Seizure d/o Cont home med: Keppra 1500 mg PO HS, 1000 mg PO AM -f/u neuro recs #HLD; TG 206/Chol 344/LDL 245/HDL 56 -Start Rosuvastatin 40 mg PO HS, #HTN; Stable. BP today 130/90 -Recheck BP, will resume home meds in AM if BP remains stable #Anxiety -Hold all sedating home meds #Prophylaxis -DVT: Heparin 5000U SQ TID #FEN -LR @ 100 -recheck lytes in AM -Sodium-controlled diet Dispo -full code -HCP is Leonid hernandez Visit type - Emergency Visit Emergency Visit: Yes ED Registration Date: 09/08/18 Care time: The patient presented to the Emergency Department on the above date and was hospitalized for further evaluation of their emergent condition. - New Patient This patient is new to me today: Yes Date on this admission: 09/08/18 - Critical Care Critical Care patient: No
[2018-09-08] MEDS ORDERED: POLYETHYLENE GLYCOL 3350 119 GM BTL PO PRN (17:59)
[2018-09-08] MEDS ORDERED: LACTATED RINGERS SOLUTION 1,000 ML/1,000 ML INFUS.BAG IV SCH (18:00)
[2018-09-08 18:09] VITALS: TEMP 97.7
--- NOTE | 2018-09-08 18:28 | EKG ---
Test Reason : Blood Pressure : / mmHG Vent. Rate : 075 BPM Atrial Rate : 075 BPM P-R Int : 138 ms QRS Dur : 090 ms QT Int : 406 ms P-R-T Axes : 066 -15 035 degrees QTc Int : 453 ms NORMAL SINUS RHYTHM LOW VOLTAGE QRS WHEN COMPARED WITH ECG OF 15-MAR-2018 08:45, NO SIGNIFICANT CHANGE WAS FOUND Confirmed by SAMUEL HARRIS MD ([id number]) on 09/08/2018 6:28:18 PM Referred By: Confirmed By:SAMUEL HARRIS MD
[2018-09-08] MEDS ORDERED: levETIRAcetam 500 MG TABLET (FP) PO SCH (22:00)
[2018-09-08] MEDS ORDERED: ATORVASTATIN CA 80 MG TABLET (FP) PO SCH (22:00)
[2018-09-08] MEDS ORDERED: HEPARIN NA (PORCINE) 5,000 UNITS/ML 1ML VIAL SQ SCH (22:00)
[2018-09-08] MEDS ORDERED: ROSUVASTATIN CA 20 MG TABLET (FP) PO SCH (22:00)
[2018-09-08] MEDS ORDERED: HEPARIN NA (PORCINE) 5,000 UNITS/ML 1ML VIAL ONE (22:32)
[2018-09-08] MEDS ORDERED: levETIRAcetam 500 MG TABLET (FP) PO ONE (22:32)
[2018-09-08 22:42] VITALS: BP 132/85; PULSE 80
--- NOTE | 2018-09-09 08:07 | PN ---
Progress Note, Physician History of Present Illness: 58F w/ pmhx of HTN, Bipolar d/o, anxiety, HTN, TBI, multiple CVAs and brain aneurysms s/p repairs, seizure disorder, and bipolar disorder was brought to the ED by his son s/p fall. Pt states she was getting out of bed this morning and as she was walking, she started to fall down slowly, down to her knees and then to the floor. The fall was witnessed by her son, Leonid; who states he did not witness any head injury during this time. At the time of fall, pt reported fever/chills, nausea/vomiting, shortness of breath, - Current Medication List Current Medications: Active Medications Heparin Sodium (Porcine) (Heparin -) 5,000 unit SQ TID [facility] Last Admin: 09/08/18 22:41 Dose: 5,000 unit Lactated Ringer's (Lactated Ringers Solution) 1,000 ml in 1,000 mls @ 100 mls/ hr IV ASDIR [facility] Stop: 09/11/18 03:59 Last Admin: 09/08/18 18:10 Dose: 100 mls/hr Levetiracetam (Keppra -) 1,500 mg PO HS [facility] Last Admin: 09/08/18 22:41 Dose: 1,500 mg Levetiracetam (Keppra -) 1,000 mg PO DAILY [facility] Polyethylene Glycol (Miralax (For Daily Use) -) 17 gm PO DAILY PRN PRN Reason: CONSTIPATION Rosuvastatin Calcium (Crestor -) 40 mg PO [facility] Last Admin: 09/08/18 22:41 Dose: 40 mg - Objective Vital Signs: Vital Signs Temperature 97.7 F 09/08/18 18:08 Pulse Rate 80 09/08/18 22:42 Respiratory Rate 18 09/08/18 22:42 Blood Pressure 132/85 09/08/18 22:42 O2 Sat by Pulse Oximetry (%) 99 09/08/18 22:42 Labs: CBC, BMP 09/08/18 13:29 09/08/18 13:29 INR, PTT INR 1.09 (0.83-1.09) 09/08/18 13:29 Problem List - Problems (1) Pre-syncope Code(s): R55 - SYNCOPE AND COLLAPSE (2) Hypertension Code(s): I10 - ESSENTIAL (PRIMARY) HYPERTENSION (3) Seizure Code(s): R56.9 - UNSPECIFIED CONVULSIONS (4) History of CVA (cerebrovascular accident) Code(s): Z86.73 - PRSNL HX OF TIA (TIA), AND CEREB INFRC W/O RESID DEFICITS
[2018-09-09] MEDS ORDERED: levETIRAcetam 500 MG TABLET (FP) PO SCH (10:00)
--- NOTE | 2018-09-10 16:17 | CON.NEURO ---
Consult Consult Specialty:: Neurology Referred by:: Dr. Prasad Reason for Consultation:: Bernt Wagner - History of Present Illness Chief Complaint: Loss of consciousness History of Present Illness: Patient seen 09/08 but my note is missing so I am entering this after the fact. I was called as a brent wagner on this patient with history of epilepsy, bipolar disorder, aneurysm repair who had aneursyms repaired in [facility] in 2011 and was found poorly responsive this morning, and has been difficult to interact with. She has been much better since I've seen her and it appears that she is recovering from a typical seizure, rapidly approaching baseline. - History Source History Provided By: Patient, Medical Record Limitations to Obtaining History: Clinical Condition - Past Medical History MANAGER RISK: Yes: Seizure, Other (aneurysms) - Alcohol/Substance Use Hx Alcohol Use: No - Smoking History Smoking history: Unknown if ever smoked Have you smoked in the past 12 months: No Aproximately how many cigarettes per day: 10 Home Medications - Allergies Allergies/Adverse Reactions: Allergies Allergy/AdvReac Type Severity Reaction Status Date / Time acetaminophen [From NyQuil] Allergy Verified 09/08/18 12:47 dextromethorphan Allergy Verified 09/08/18 12:47 [From NyQuil] diphenhydramine HCl Allergy Verified 09/08/18 12:47 [From Benadryl] doxylamine [From NyQuil] Allergy Verified 09/08/18 12:47 ibuprofen [From Advil] Allergy Verified 09/08/18 12:47 paroxetine HCl [From Paxil] Allergy Verified 09/08/18 12:47 pseudoephedrine [From NyQuil] Allergy Verified 09/08/18 12:47 pseudoephedrine HCl Allergy Verified 09/08/18 12:47 [From Sudafed] rofecoxib [From Vioxx] Allergy Verified 09/08/18 12:47 - Home Medications Home Medications: Ambulatory Orders Amlodipine Besylate [Norvasc -] 2.5 mg PO DAILY 12/09/15 Diclofenac Sodium [Voltaren] 100 gm TP BID 12/09/15 Doxepin HCl 200 mg PO HS 12/09/15 Hydromorphone HCl [Dilaudid] 4 mg PO Q6H PRN 12/09/15 Levetiracetam [Keppra] 1,500 mg PO HS 12/09/15 Polyethylene Glycol 3350 [Miralax 255 gm Btl -] 17 gm PO DAILY PRN #1 bottle Pregabalin [Lyrica] 225 mg PO DAILY 12/09/15 levETIRAcetam [Keppra -] 1,000 mg PO AM 12/09/15 Acetaminophen/Caffeine/Butalb [Fioricet -] 1 tab PO Q4H 03/14/18 Atenolol [Tenormin -] 25 mg PO DAILY 03/14/18 Duloxetine HCl [Cymbalta] 30 mg PO HS 03/14/18 Gabapentin [Neurontin] 600 mg PO HS 03/14/18 Ropinirole HCl 0.5 mg PO DAILY 03/14/18 Butalb/Acetaminophen/Caffeine [Fioricet 50-300-40 mg Capsule] 1 each PO DAILY # 7 capsule 04/26/18 Physical Exam-Neuro Vital Signs: Vital Signs Temperature 97.7 F 09/08/18 18:08 Pulse Rate 80 09/08/18 22:42 Respiratory Rate 18 09/08/18 22:42 Blood Pressure 132/85 09/08/18 22:42 O2 Sat by Pulse Oximetry (%) 99 09/08/18 22:42 Labs: CBC, BMP 09/08/18 13:29 09/08/18 13:29 INR, PTT INR 1.09 (0.83-1.09) 09/08/18 13:29 NIH Stroke Scale - Initial Evaluation Level of consciousness: Alert Ask patient the month and their age: Answers both correctly Ask patient to open & close eyes; make fist and let go: Obeys both correctly Best gaze (horizontal eye movement): Normal Visual field testing: No visual field loss Facial paresis (Show teeth/raise eyebrows/close eyes tight): Normal symmetrical movement Motor Function: Left Arm: Normal Motor Function: Right Arm: Normal (extends arm 90 (or 45) degrees for 10 seconds without drift Motor Function: Left Leg: Normal (extends leg 30 degrees for 5 seconds without drift) Motor Function: Right Leg: Normal (extends leg 30 degrees for 5 seconds without drift) Limb Ataxia: No ataxia Sensory(Use pinprick test arms,legs,trunk,face/side to side): Normal Best language (Describe picture, name items, read sentences): No Aphasia Dysarthria (read several words): Normal articulation Extinction and Inattention: No abnormality - Total Score NIH Stroke Scale Score: 0 Imaging - Results Cat Scan: Report Reviewed, Image Reviewed (prior craniotomy, aneurysm clips, bg infarct (chronic) no acute pathology) Problem List - Problems (1) Epilepsy Code(s): G40.909 - EPILEPSY, UNSP, NOT INTRACTABLE, WITHOUT STATUS EPILEPTICUS (2) History of CVA (cerebrovascular accident) Code(s): Z86.73 - PRSNL HX OF TIA (TIA), AND CEREB INFRC W/O RESID DEFICITS
== END 2018-09-09 01:48 | disposition left against medical advice (07) ==
LOC: SUPCPDRO 12:35 → JER 12:35 → JERBED 15:30
PROVIDERS: ADMIT Internal Medicine; ATTEND Internal Medicine
PROC: 3E0337Z Introduction of Electrolytic and Water Balance Substance into Peripheral Vein, Percutaneous Approach (ICD-10-PCS; principal; 2018-09-08)
PROC: 3E013GC Introduction of Other Therapeutic Substance into Subcutaneous Tissue, Percutaneous Approach (ICD-10-PCS; 2018-09-08)
DX: R41.82 Altered mental status, unspecified (principal); R55 Syncope and collapse; I10 Essential (primary) hypertension; E78.5 Hyperlipidemia, unspecified; G40.909 Epilepsy, unspecified, not intractable, without status epilepticus; F31.9 Bipolar disorder, unspecified; F41.9 Anxiety disorder, unspecified; G25.81 Restless legs syndrome; I69.354 Hemiplegia and hemiparesis following cerebral infarction affecting left non-dominant side; Z86.79 Personal history of other diseases of the circulatory system; Z88.8 Allergy status to other drugs, medicaments and biological substances
CPT/HCPCS: 36415; 70450-TC; 80053; 81003; 82465; 82550; 82553; 83718; 83721; 84478; 84484; 85025; 85610; 93005; 93010; 96372; 99285-25; G0378; J1644; J7030

== ENCOUNTER 2018-09-23 07:22 | Observation (INO) | payer OTHER ==
[2018-09-23 07:44] VITALS: BMI 36.6
--- NOTE | 2018-09-23 09:21 | PDOC ---
History of Present Illness - General Chief Complaint: Pain Stated Complaint: PAIN Time Seen by Provider: 09/23/18 09:17 History Source: Patient Exam Limitations: No Limitations - History of Present Illness Initial Comments: 09/23/18 09:55 Jose 58 YOF with h/o TBI, HTN, bipolar disorder, anxiety, restless leg syndrome, carpal tunnel syndrome, seizures/epilepsy (on keppra), multiple CVAs ( residual left sided weakness and numbness) and cerebral aneurysms s/p repair, chronic back and neck pain, Presenting with chronic head/back pain, general AP, nausea, +mucus stooling, nonbloody. Also ? chest pain, palpitations, SOB, since November 2017. she also notes heartburn and weird taste in mouth/regurgitation x 2 weeks. Also ? general headache and left sided neck pain; denies recent trauma or falls, last fall in March 2018. +lower extremity weakness, but n o falls, no swelling or calf tenderness. Residual left sided weakness from old CVA. Tolerating PO and fluid intake, no recent changes She denies recent fevers, chills, or dizziness. She denies recent vomiting, diarrhea or constipation. She denies recent dysuria, frequency, urgency or hematuria. Allergies: Acetaminophen, dextromethorphan, diphenhydramine, doxylamine, ibuprofen, paroxetine, pseudoephedrine, rofecoxib PSH: TBI/cerebral aneurysm repair, back surgery PMH: see HPI ROS Constitutional: no fevers or chills. HEENT: no headache or dizziness. No congestion. No visual/hearing disturbances. CVS: +chest pain, palpitations. No syncope. Resp: +sob. No cough. Gastrointestinal: +abdominal pain, nausea; no vomiting or diarrhea, constipation or bloody stools. +mucus stooling. Genitourinary: no urinary sx, hematuria. MUSCULOSKELETAL: No joint pain and swelling. +neck and back pain SKIN: no redness or skin changes, no discharge, no rash. No wounds. Hematologic: no easy bruising/bleeding. NEUROLOGIC: +headache, +LE weakness. No LOC or altered mental status. No paresthesias Allergic/Immunologic: medication allergies All other systems reviewed and negative, or as documented in HPI. PE: General: awake and alert, NAD. comfortable in bed. HEENT: NCAT, PERRL, EOMI, clear conjunctiva, anicteric, dry mucus membranes, clear oropharynx, no oral lesions.. Neck: neck supple, FROM, no meningismus, no midline tenderness Resp: CTAB, normal and even respirations, no respiratory distress CVS: RRR, no murmurs, 2+ peripheral pulses throughout, no peripheral edema Abdomen: soft, obese; diffuse tenderness worse on right side. No CVAT Back: nontender, normal inspection and ROM MSK: no edema, MARTÍNEZ x4, ROM intact. No clubbing or cyanosis. normal bulk and tone. Extremities: no calf tenderness Neuro: alert, oriented appropriately; tangential, clear speech. No focal neurologic deficits. Skin: warm and well perfused, cap refill <2 sec, normal color 09/23/18 11:23 Past History - Past Medical History Allergies/Adverse Reactions: Allergies Allergy/AdvReac Type Severity Reaction Status Date / Time acetaminophen [From NyQuil] Allergy Verified 09/08/18 12:47 dextromethorphan Allergy Verified 09/08/18 12:47 [From NyQuil] diphenhydramine HCl Allergy Verified 09/08/18 12:47 [From Benadryl] doxylamine [From NyQuil] Allergy Verified 09/08/18 12:47 ibuprofen [From Advil] Allergy Verified 09/08/18 12:47 paroxetine HCl [From Paxil] Allergy Verified 09/08/18 12:47 pseudoephedrine [From NyQuil] Allergy Verified 09/08/18 12:47 pseudoephedrine HCl Allergy Verified 09/08/18 12:47 [From Sudafed] rofecoxib [From Vioxx] Allergy Verified 09/08/18 12:47 Home Medications: Ambulatory Orders Amlodipine Besylate [Norvasc -] 2.5 mg PO DAILY 12/09/15 Diclofenac Sodium [Voltaren] 100 gm TP BID 12/09/15 Doxepin HCl 200 mg PO HS 12/09/15 Levetiracetam [Keppra] 1,500 mg PO HS 12/09/15 Polyethylene Glycol 3350 [Miralax 255 gm Btl -] 17 gm PO DAILY PRN #1 bottle Pregabalin [Lyrica] 225 mg PO DAILY 12/09/15 levETIRAcetam [Keppra -] 1,000 mg PO AM 12/09/15 Acetaminophen/Caffeine/Butalb [Fioricet -] 1 tab PO Q4H PRN 03/14/18 Atenolol [Tenormin -] 25 mg PO DAILY 03/14/18 Duloxetine HCl [Cymbalta] 30 mg PO HS 03/14/18 Gabapentin [Neurontin] 600 mg PO HS 03/14/18 Ropinirole HCl 0.5 mg PO DAILY 03/14/18 COPD: No HTN: Yes Psychiatric Problems: Yes Seizures: Yes - Surgical History Neurologic Surgery: Yes (brain aneurysms x3 (2010)) - Immunization History Immunization Up to Date: Yes - Suicide/Smoking/Psychosocial Hx Smoking History: Unknown if ever smoked Have you smoked in the past 12 months: No Number of Cigarettes Smoked Daily: 10 'Breaking Loose' booklet given: 12/09/15 Hx Alcohol Use: No Drug/Substance Use Hx: Yes Substance Use Type: Marijuana Hx Substance Use Treatment: No *Physical Exam - Vital Signs Last Vital Signs Temp Pulse Resp BP Pulse Ox 98.3 F 77 18 127/96 09/23/18 07:22 09/23/18 07:22 09/23/18 07:22 09/23/18 07:22 Moderate Sedation - Procedure Monitoring Vital Signs: Procedure Monitoring Vital Signs Temperature 98.3 F 09/23/18 07:22 Pulse Rate 77 09/23/18 07:22 Respiratory Rate 18 09/23/18 07:22 Blood Pressure 127/96 09/23/18 07:22 O2 Sat by Pulse Oximetry (%) ED Treatment Course - LABORATORY CBC & Chemistry Diagram: 09/23/18 10:07 09/23/18 12:42 Medical Decision Making - Medical Decision Making 09/23/18 09:55 See HPI for details Vital signs reviewed, wnl. DDx. chronic headache, migraine, tension AYERS, neck spasms; doubt meningitis or infection. no fever. ACS, angina, arrhythmia, anemia, electrolyte/metabolic derangements. Prior notes reviewed, including admissions, discharges and consultations. laboratory results and imaging reviewed, basic labs and lytes wnl, notable for old Cr 1.6, no changes. normal LFTs and lipase. UA_neg for infection Cardiac panel_neg trop, reassuring, serial trop. EKG normal sinus rhythm, low voltage, no interval abnormalities, narrow QRS, ST and T wave segments and morphology normal. Nonspecific T wave abnormalities - similar to prior EKGS CT head: no acute findings, chronic lacunar infarct, aneurysmal clips noted from prior repair. microvascular changes, chronic findings CT a/p: noncontrast, as CKD noted, risk of nephrotoxicity. no acute abdominal pathology, but incidental finding of small pericardial effusion (that could be contributing to CP/palp sx), as well as development of focus of pleural/ pericardial soft tissue thickening along left lower mediastinal border, measuring 2.7 x 0.9cm. - old chronic L1 compression fx, degenerative changes ED course: given pepcid, reglan, bentyl for AP. oxycodone for analgesia additionally potassium repleted. CT scans as above. no acute pathology; old stroke on CTH. chronic microvascular changes noted. CT a/p with no acute abdominal pathology, small pericardial effusion vs focal pleural/pericardial soft tissue thickening - which is acute, CT chest ordered. discussed findings with Dr Moscoso, cards cs in place and official echo to evaluate the pericardial effusion vs soft tissue abnormality. dispo: admit to Dr Greco service for management and eval of pericardial effusion and pleural vs pericardial soft tissue abnormality. cards cs, official echo and CT chest to delineate pt made aware of impression and plan, agreeable, though got upset to find out the uncertain findings as well. 09/23/18 17:39 *DC/Admit/Observation/Transfer Diagnosis at time of Disposition: Pericardial effusion Chest pain Qualifiers: Chest pain type: other chest pain Qualified Code(s): R07.89 - Other chest pain Abdominal pain Qualifiers: Abdominal location: generalized Qualified Code(s): R10.84 - Generalized abdominal pain - Discharge Dispostion Condition at time of disposition: Guarded Decision to Admit order: Yes Decision to Admit order Date/Time: 09/23/18 16:56 Decision to Admit Order Category Date Time Status Decision to Admit to Hospital Routine Admission 09/23/18 16:44 Active - Referrals - Patient Instructions - Post Discharge Activity
[2018-09-23] MEDS ORDERED: DICYCLOMINE HCL 20 MG TABLET PO ONE (09:43)
[2018-09-23] MEDS ORDERED: METOCLOPRAMIDE HCL INJECTION 10 MG/2 ML VIAL IVPUSH ONE (09:43)
[2018-09-23] MEDS ORDERED: METOCLOPRAMIDE HCL INJECTION 10 MG/2 ML VIAL ONE (09:54)
[2018-09-23] MEDS ORDERED: DICYCLOMINE HCL 10 MG CAPSULE ONE (09:54)
[2018-09-23] MEDS ORDERED: FAMOTIDINE 20 MG/50 ML IVPB 20 MG/50 ML MG IVPB ONE ×2 (10:00→10:20)
[2018-09-23 10:24] LABS: EOS % 1.5 % (0-4.5); HEMATOCRIT 36.8 % (32.4-45.2); LYMPH % 37.6 % (8-40); MCH 33.6 pg (25.7-33.7); MCHC 35.3 g/dl (32.0-36.0); MEAN CELL VOLUME 95.2 fl (80-96); MEAN PLT VOLUME 8.5 fl (7.5-11.1); MONO % 5.2 % (3.8-10.2); NEUT % 54.7 % (42.8-82.8); PLATELET COUNT 240 K/MM3 (134-434); RBC 3.86 M/mm3 (3.60-5.2); WHITE BLOOD COUNT 5.6 K/mm3 (4.0-10.0)
[2018-09-23 11:47] LABS: URINE APPEARANCE SLCLOUDY; URINE BILIRUBIN NEGATIVE (<2.0 mg/dL); URINE COLOR YELLOW; URINE GLUCOSE (UA) NEGATIVE (NEGATIVE); URINE KETONE NEGATIVE (NEGATIVE); URINE LEUK ESTERASE NEGATIVE (NEGATIVE); URINE NITRITE NEGATIVE (NEGATIVE); URINE PROTEIN NEGATIVE (NEGATIVE)
[2018-09-23 13:16] LABS: ALK PHOS 60 U/L (45-117); ANION GAP 5 MMOL/L (8-16); BILIRUBIN,TOTAL 0.5 mg/dL (0.2-1); BLOOD UREA NITROGEN 10 mg/dL (7-18); CALCIUM 8.7 mg/dL (8.5-10.1); CHLORIDE 106 mmol/L (98-107); CO2 29 mmol/L (21-32); CREATININE 1.6 mg/dL (0.55-1.3); GLUCOSE,RANDOM 94 mg/dL (74-106); LIPASE 128 U/L (73-393); POTASSIUM 3.4 mmol/L (3.5-5.1); SGOT/AST 39 U/L (15-37); SGPT/ALT 37 U/L (13-61); SODIUM 141 mmol/L (136-145); TOT PROT 7.7 g/dl (6.4-8.2)
[2018-09-23] MEDS ORDERED: POTASSIUM CHLORIDE TABS 20 MEQ TABLET.ER (FP) PO ONE ×2 (13:34→15:08)
[2018-09-23] MEDS ORDERED: SODIUM CHLORIDE 0.9% 500 ML INFUS.BAG IV ONE (14:27)
--- NOTE | 2018-09-23 17:30 | EKG ---
Test Reason : Blood Pressure : / mmHG Vent. Rate : 072 BPM Atrial Rate : 072 BPM P-R Int : 190 ms QRS Dur : 098 ms QT Int : 446 ms P-R-T Axes : 054 -14 033 degrees QTc Int : 488 ms NORMAL SINUS RHYTHM LOW VOLTAGE QRS CANNOT RULE OUT ANTERIOR INFARCT (CITED ON OR BEFORE 23-SEP-2018) ABNORMAL ECG WHEN COMPARED WITH ECG OF 08-SEP-2018 12:56, NO SIGNIFICANT CHANGE WAS FOUND Confirmed by SAMUEL HARRIS MD ([id number]) on 09/23/2018 5:30:42 PM Referred By: Confirmed By:SAMUEL HARRIS MD
[2018-09-23] MEDS ORDERED: oxyCODONE HCL 5 MG TABLET PO ONE (17:32)
--- NOTE | 2018-09-23 18:43 | HP ---
Admitting History and Physical - Primary Care Physician PCP: Alesia Greco - Admission History of Present Illness: 58 YOF with h/o TBI, HTN, bipolar disorder, anxiety, restless leg syndrome, carpal tunnel syndrome, seizures/epilepsy (on keppra), multiple CVAs (residual left sided weakness and numbness) and cerebral aneurysms s/p repair, chronic back and neck pain, Presenting with chronic head/back pain, general AP, nausea, +mucus stooling, nonbloody. Also ? chest pain, palpitations, SOB, since November 2017. she also notes heartburn and weird taste in mouth/regurgitation x 2 weeks. Also ? general headache and left sided neck pain; denies recent trauma or falls, last fall in March 2018. +lower extremity weakness, but n o falls, no swelling or calf tenderness. Residual left sided weakness from old CVA. Tolerating PO and fluid intake, no recent changes She denies recent fevers, chills, or dizziness. She denies recent vomiting, diarrhea or constipation. She denies recent dysuria, frequency, urgency or hematuria. 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) Cardiovascular: Yes: HTN - Smoking History Smoking history: Unknown if ever smoked Have you smoked in the past 12 months: No Aproximately how many cigarettes per day: 10 - Alcohol/Substance Use Hx Alcohol Use: No Home Medications - Allergies Allergies/Adverse Reactions: Allergies Allergy/AdvReac Type Severity Reaction Status Date / Time acetaminophen [From NyQuil] Allergy Verified 09/08/18 12:47 dextromethorphan Allergy Verified 09/08/18 12:47 [From NyQuil] diphenhydramine HCl Allergy Verified 09/08/18 12:47 [From Benadryl] doxylamine [From NyQuil] Allergy Verified 09/08/18 12:47 ibuprofen [From Advil] Allergy Verified 09/08/18 12:47 paroxetine HCl [From Paxil] Allergy Verified 09/08/18 12:47 pseudoephedrine [From NyQuil] Allergy Verified 09/08/18 12:47 pseudoephedrine HCl Allergy Verified 09/08/18 12:47 [From Sudafed] rofecoxib [From Vioxx] Allergy Verified 09/08/18 12:47 - Home Medications Home Medications: Ambulatory Orders Amlodipine Besylate [Norvasc -] 2.5 mg PO DAILY 12/09/15 Diclofenac Sodium [Voltaren] 100 gm TP BID 12/09/15 Doxepin HCl 200 mg PO HS 12/09/15 Levetiracetam [Keppra] 1,500 mg PO HS 12/09/15 Polyethylene Glycol 3350 [Miralax 255 gm Btl -] 17 gm PO DAILY PRN #1 bottle Pregabalin [Lyrica] 225 mg PO DAILY 12/09/15 levETIRAcetam [Keppra -] 1,000 mg PO AM 12/09/15 Acetaminophen/Caffeine/Butalb [Fioricet -] 1 tab PO Q4H PRN 03/14/18 Atenolol [Tenormin -] 25 mg PO DAILY 03/14/18 Duloxetine HCl [Cymbalta] 30 mg PO HS 03/14/18 Gabapentin [Neurontin] 600 mg PO HS 03/14/18 Ropinirole HCl 0.5 mg PO DAILY 03/14/18 Physical Examination Vital Signs: Vital Signs Temperature 98.3 F 09/23/18 07:22 Pulse Rate 77 09/23/18 07:22 Respiratory Rate 18 09/23/18 07:22 Blood Pressure 127/96 09/23/18 07:22 O2 Sat by Pulse Oximetry (%) HENT: Yes: Atraumatic Neck: Yes: Supple Cardiovascular: Yes: Regular Rate and Rhythm Respiratory: Yes: CTA Bilaterally Gastrointestinal: Yes: Normal Bowel Sounds Extremities: Yes: WNL Edema: No Neurological: Yes: Alert, Oriented Labs: CBC, BMP 09/23/18 10:07 09/23/18 12:42 Problem List - Problems (1) Chest pain Assessment/Plan: tele monitoring echo, chest ct cardio consult Code(s): R07.9 - CHEST PAIN, UNSPECIFIED Qualifiers: Chest pain type: other chest pain Qualified Code(s): R07.89 - Other chest pain; R07.8 - Other chest pain (2) Pericardial effusion Assessment/Plan: echo/chest ct ..ordered Code(s): I31.3 - PERICARDIAL EFFUSION (NONINFLAMMATORY) (3) Epilepsy Assessment/Plan: on meds Code(s): G40.909 - EPILEPSY, UNSP, NOT INTRACTABLE, WITHOUT STATUS EPILEPTICUS Assessment/Plan Laboratory Tests 09/23/18 09/23/18 09/23/18 10:07 10:07 11:21 WBC 5.6 RBC 3.86 Hgb 13.0 Hct 36.8 MCV 95.2 MCH 33.6 MCHC 35.3 RDW 17.0 H Plt Count 240 MPV 8.5 Absolute Neuts (auto) 3.1 Neutrophils % 54.7 Lymphocytes % 37.6 Monocytes % 5.2 Eosinophils % 1.5 Basophils % 1.0 Nucleated RBC % 0 Sodium Cancelled Potassium Cancelled Chloride Cancelled Carbon Dioxide Cancelled Anion Gap Cancelled BUN Cancelled Creatinine Cancelled Creat Clearance w eGFR Cancelled Random Glucose Cancelled Calcium Cancelled Total Bilirubin Cancelled AST Cancelled ALT Cancelled Alkaline Phosphatase Cancelled Troponin I Cancelled Total Protein Cancelled Albumin Cancelled Lipase Cancelled Urine Color Yellow Urine Appearance Slcloudy Urine pH 5.0 Ur Specific [place] 1.017 Urine Protein Negative Urine Glucose (UA) Negative Urine Ketones Negative Urine Blood Negative Urine Nitrite Negative Urine Bilirubin Negative Urine Urobilinogen 2.0 H Ur Leukocyte Esterase Negative 09/23/18 12:42 WBC RBC Hgb Hct MCV MCH MCHC RDW Plt Count MPV Absolute Neuts (auto) Neutrophils % Lymphocytes % Monocytes % Eosinophils % Basophils % Nucleated RBC % Sodium 141 Potassium 3.4 L Chloride 106 Carbon Dioxide 29 Anion Gap 5 L BUN 10 Creatinine 1.6 H Creat Clearance w eGFR 33.22 Random Glucose 94 Calcium 8.7 Total Bilirubin 0.5 AST 39 H ALT 37 Alkaline Phosphatase 60 Troponin I Total Protein 7.7 Albumin 4.0 Lipase 128 Urine Color Urine Appearance Urine pH Ur Specific [place] Urine Protein Urine Glucose (UA) Urine Ketones Urine Blood Urine Nitrite Urine Bilirubin Urine Urobilinogen Ur Leukocyte Esterase Active Medications Generic Name Dose Route Start Last Admin Trade Name Freq PRN Reason Stop Dose Admin Amlodipine Besylate 2.5 mg 09/24/18 10:00 09/24/18 09:39 Norvasc - PO 2.5 mg DAILY KIMBER Administration Atenolol 25 mg 09/24/18 10:00 09/24/18 09:39 Tenormin - PO 25 mg DAILY KIMBER Administration Doxepin HCl 200 mg 09/24/18 22:00 Sinequan - PO HS KIMBER Duloxetine HCl 30 mg 09/24/18 22:00 Cymbalta - PO HS KIMBER Gabapentin 600 mg 09/24/18 02:15 09/24/18 03:09 Neurontin - PO 600 mg HS KIMBER Administration Levetiracetam 1,000 mg 09/24/18 07:00 09/24/18 06:08 Keppra - PO 1,000 mg AM KIMBER Administration Levetiracetam 1,500 mg 09/24/18 02:15 09/24/18 03:09 Keppra - PO 1,500 mg HS KIMBER Administration Pregabalin 225 mg 09/24/18 10:00 09/24/18 09:39 Lyrica - PO 225 mg DAILY KIMBER Administration
[2018-09-23] MEDS ORDERED: oxyCODONE HCL 5 MG TABLET ONE (20:00)
[2018-09-24] MEDS: levETIRAcetam 500 MG TABLET (FP) PO SCH ×3 (03:09→21:06)
[2018-09-24] MEDS: GABAPENTIN 300 MG CAPSULE (FP) PO SCH ×2 (03:09→21:07)
[2018-09-24] MEDS: PREGABALIN 75 MG CAPSULE PO SCH (09:39)
[2018-09-24] MEDS: amLODIPine BESYLATE 2.5 MG TABLET (FP) PO SCH (09:39)
[2018-09-24] MEDS ORDERED: ATENOLOL 25 MG TABLET (FP) PO SCH (10:00)
--- NOTE | 2018-09-24 14:04 | ECHO ---
Name: JAGRUTI MENDENHALL Exam:Adult Echocardiogram Study Date: 09/24/2018 09:28 AM Age: 58 yrs Height: 61 in Weight: 194 lb BSA: 1.9 m2 BP: 147/116 mmHg MMode/2D Measurements & Calculations IVSd: 0.76 cm Ao root diam: 2.8 cm LVIDd: 5.4 cm LA dimension: 3.1 cm LVIDs: 3.5 cm LVPWd: 0.72 cm EDV(Teich): 139.9 ml ESV(Teich): 52.1 ml Doppler Measurements & Calculations MV E max malcolm: 27.6 cm/sec MR max malcolm: 181.0 cm/sec MV A max malcolm: 32.1 cm/sec MR max P.1 mmHg MV E/A: 0.86 MV dec time: 0.12 sec Med Peak E' Malcolm: 8.1 cm/sec Med E/e': 3.4 Lat Peak E' Malcolm: 3.7 cm/sec Lat E/e': 7.5 Procedure A complete two-dimensional transthoracic echocardiogram was performed (2D, M-mode, Doppler and color flow Doppler). The study was technically difficult with many images being suboptimal in quality. Left Ventricle The left ventricle is grossly normal size. Left ventricular systolic function is severely reduced. Ej ection Fraction = 30%. The transmitral spectral Doppler flow pattern is suggestive of impaired LV relaxation . There is severe global hypokinesis of the left ventricle. Right Ventricle The right ventricle is normal in size and function. Atria Normal left and right atrial size and function. Mitral Valve The mitral valve is grossly normal. There is trace mitral regurgitation. Tricuspid Valve The tricuspid valve is not well visualized, but is grossly normal. There is trace tricuspid regurgita tion. There was insufficient TR detected to calculate RV systolic pressure. Aortic Valve The aortic valve is normal in structure and function. Great Vessels The aortic root is normal size. Pericardium/Pleura There is no pericardial effusion. There is no pleural effusion. Interpretation Summary The study was technically difficult with many images being suboptimal in quality. Ejection Fraction = 30%. There is severe global hypokinesis of the left ventricle. There is trace mitral regurgitation. There is trace tricuspid regurgitation. There was insufficient TR detected to calculate RV systolic pressure. MD Luis Alberto Huertas 09/24/2018 02:03 PM
--- NOTE | 2018-09-24 18:28 | PN ---
Progress Note, Physician History of Present Illness: feeling better - Current Medication List Current Medications: Active Medications Amlodipine Besylate (Norvasc -) 2.5 mg PO DAILY [facility] Last Admin: 09/24/18 09:39 Dose: 2.5 mg Atenolol (Tenormin -) 25 mg PO DAILY [facility] Last Admin: 09/24/18 09:39 Dose: 25 mg Doxepin HCl (Sinequan -) 200 mg PO [facility] Duloxetine HCl (Cymbalta -) 30 mg PO HS [facility] Gabapentin (Neurontin -) 600 mg PO HS [facility] Last Admin: 09/24/18 03:09 Dose: 600 mg Levetiracetam (Keppra -) 1,000 mg PO AM [facility] Last Admin: 09/24/18 06:08 Dose: 1,000 mg Levetiracetam (Keppra -) 1,500 mg PO HS [facility] Last Admin: 09/24/18 03:09 Dose: 1,500 mg Pregabalin (Lyrica -) 225 mg PO DAILY [facility] Last Admin: 09/24/18 09:39 Dose: 225 mg - Objective Vital Signs: Vital Signs Temperature 98.1 F 09/24/18 14:00 Pulse Rate 109 H 09/24/18 14:00 Respiratory Rate 20 09/24/18 14:00 Blood Pressure 127/98 09/24/18 14:00 O2 Sat by Pulse Oximetry (%) 90 L 09/24/18 09:00 Constitutional: Yes: No Distress HENT: Yes: Atraumatic Neck: Yes: Supple Cardiovascular: Yes: Regular Rate and Rhythm Respiratory: Yes: CTA Bilaterally Gastrointestinal: Yes: Normal Bowel Sounds Extremities: Yes: WNL Neurological: Yes: Alert, Oriented Labs: CBC, BMP 09/23/18 10:07 Problem List - Problems (1) Chest pain Assessment/Plan: tele monitoring echo, chest ct...done and report reviewed cardio consult Code(s): R07.9 - CHEST PAIN, UNSPECIFIED Qualifiers: Chest pain type: other chest pain Qualified Code(s): R07.89 - Other chest pain; R07.8 - Other chest pain (2) Pericardial effusion Assessment/Plan: echo/chest ct ....no effusion Code(s): I31.3 - PERICARDIAL EFFUSION (NONINFLAMMATORY) (3) Epilepsy Assessment/Plan: on meds Code(s): G40.909 - EPILEPSY, UNSP, NOT INTRACTABLE, WITHOUT STATUS EPILEPTICUS
[2018-09-24 18:39] LABS: ALK PHOS 61 U/L (45-117); ANION GAP 9 MMOL/L (8-16); BILIRUBIN,TOTAL 0.4 mg/dL (0.2-1); BLOOD UREA NITROGEN 10 mg/dL (7-18); CALCIUM 9.3 mg/dL (8.5-10.1); CHLORIDE 106 mmol/L (98-107); CO2 25 mmol/L (21-32); CREATININE 1.5 mg/dL (0.55-1.3); GLUCOSE,RANDOM 105 mg/dL (74-106); SGOT/AST 60 U/L (15-37); SGPT/ALT 53 U/L (13-61); SODIUM 140 mmol/L (136-145)
[2018-09-24] MEDS: DULoxetine HCL 30 MG CAPSULE.DR (FP) PO SCH (21:08)
--- NOTE | 2018-09-24 22:24 | CON.CARD ---
Consult Consult Specialty:: Cardiology Referred by:: Dr. Greco Reason for Consultation:: Cardiac evaluation - History of Present Illness Chief Complaint: Chest pain, SOB, palpitations, weakness History of Present Illness: Patient is a 58 year old female with underlying history of bipolar disorder, HTN , anxiety, restless leg syndrome, seizure/epilepsy, CVA and cerebral aneurysm s/ p repair who presents with multiple symptoms including generalized weakness, headache and back pain, chest pain, SOB and palpitations intermittently. CT of chest was reported small pericardia effusion and pleural thickening. Echocardiography was done in AM which revealed LVEF of 30% with global hypokinesia, but did not report pericardial effusion. She denies fever or chills. Denies dizziness. Denies nausea, vomiting, diarrhea, but complains of diffuse abdominal pain. 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) Cardio/Vascular: Yes: HTN - Alcohol/Substance Use Hx Alcohol Use: No - Smoking History Smoking history: Unknown if ever smoked Have you smoked in the past 12 months: No Aproximately how many cigarettes per day: 10 Home Medications - Allergies Allergies/Adverse Reactions: Allergies Allergy/AdvReac Type Severity Reaction Status Date / Time acetaminophen [From NyQuil] Allergy Verified 09/08/18 12:47 dextromethorphan Allergy Verified 09/08/18 12:47 [From NyQuil] diphenhydramine HCl Allergy Verified 09/08/18 12:47 [From Benadryl] doxylamine [From NyQuil] Allergy Verified 09/08/18 12:47 ibuprofen [From Advil] Allergy Verified 09/08/18 12:47 paroxetine HCl [From Paxil] Allergy Verified 09/08/18 12:47 pseudoephedrine [From NyQuil] Allergy Verified 09/08/18 12:47 pseudoephedrine HCl Allergy Verified 09/08/18 12:47 [From Sudafed] rofecoxib [From Vioxx] Allergy Verified 09/08/18 12:47 - Home Medications Home Medications: Ambulatory Orders Amlodipine Besylate [Norvasc -] 2.5 mg PO DAILY 12/09/15 Diclofenac Sodium [Voltaren] 100 gm TP BID 12/09/15 Doxepin HCl 200 mg PO HS 12/09/15 Levetiracetam [Keppra] 1,500 mg PO HS 12/09/15 Polyethylene Glycol 3350 [Miralax 255 gm Btl -] 17 gm PO DAILY PRN #1 bottle Pregabalin [Lyrica] 225 mg PO DAILY 12/09/15 levETIRAcetam [Keppra -] 1,000 mg PO AM 12/09/15 Acetaminophen/Caffeine/Butalb [Fioricet -] 1 tab PO Q4H PRN 03/14/18 Atenolol [Tenormin -] 25 mg PO DAILY 03/14/18 Duloxetine HCl [Cymbalta] 30 mg PO HS 03/14/18 Gabapentin [Neurontin] 600 mg PO HS 03/14/18 Ropinirole HCl 0.5 mg PO DAILY 03/14/18 Review of Systems - Review of Systems Constitutional: denies: Chills, Fever Cardiovascular: reports: Chest Pain, Palpitations, Shortness of Breath Respiratory: reports: SOB. denies: Cough, Hemoptysis, Orthopnea, PND, Wheezing Gastrointestinal: reports: Abdominal Pain. denies: Constipation, Diarrhea, Melena, Nausea, Rectal Bleeding, Vomiting Genitourinary: denies: Dysuria, Hematuria Neurological: reports: Headache, Seizure. denies: Dizziness, Numbness, Syncope Vital Signs: Vital Signs Temperature 98.1 F 09/24/18 14:00 Pulse Rate 109 H 09/24/18 14:00 Respiratory Rate 20 09/24/18 14:00 Blood Pressure 127/98 09/24/18 14:00 O2 Sat by Pulse Oximetry (%) 90 L 09/24/18 09:00 Eyes: Yes: PERRL HENT: Yes: Atraumatic Neck: Yes: Supple Respiratory: Yes: CTA Bilaterally Gastrointestinal: Yes: Normal Bowel Sounds. No: Tenderness Cardiovascular: Yes: Regular Rate and Rhythm JVD: No PMI: Non-Displaced Heart Sounds: Yes: S1, S2 Edema: No - Other Data Labs, Other Data: CBC, BMP 09/23/18 10:07 09/24/18 12:00 Troponin, BNP 09/24/18 12:00 Troponin I < 0.02 NSR, cannot rule out anterior infarct Echo: Report Reviewed Imaging - Results Cat Scan: Report Reviewed (Chest CT pleural thickening Abdomial CT: fecal retention) EKG: Report Reviewed Problem List - Problems (1) Dilated cardiomyopathy Code(s): I42.0 - DILATED CARDIOMYOPATHY (2) Systolic dysfunction Code(s): I51.9 - HEART DISEASE, UNSPECIFIED (3) Abdominal pain Code(s): R10.9 - UNSPECIFIED ABDOMINAL PAIN Qualifiers: Abdominal location: generalized Qualified Code(s): R10.84 - Generalized abdominal pain (4) Chest pain Code(s): R07.9 - CHEST PAIN, UNSPECIFIED Qualifiers: Chest pain type: other chest pain Qualified Code(s): R07.89 - Other chest pain; R07.8 - Other chest pain (5) History of CVA (cerebrovascular accident) Code(s): Z86.73 - PRSNL HX OF TIA (TIA), AND CEREB INFRC W/O RESID DEFICITS (6) Hypertension Code(s): I10 - ESSENTIAL (PRIMARY) HYPERTENSION Qualifiers: Hypertension type: essential hypertension Qualified Code(s): I10 - Essential (primary) hypertension (7) Seizure Code(s): R56.9 - UNSPECIFIED CONVULSIONS Assessment/Plan 1. Generalized weakness 2. HTN 3. LV systolic dysfunction/dilated cardiomyopathy with global hypokinesia 4. History of cerebral aneurysm s/p repair and coiling 5. Seizure disorder 6. CKD PLAN: 1. Change Atenolol to Carvedilol - start at 6.25 mg BID 2. Add ACEI or ARB as tolerated and monitor renal function +/- Amlodipine 3. Further cardiac work up to be followed to assess CAD. Consider nuclear myocardial perfusion scan at some point 4. If LVEF remains below 35%, she may need to be assessed for defibrillator implantation after 90 days of therapy. 5. Fasting lipid panel Further plans are to be followed Sang Sena Lozano MD
[2018-09-24] MEDS: DOXEPIN HCL 25 MG CAPSULE PO SCH (22:32)
[2018-09-25] MEDS: levETIRAcetam 500 MG TABLET (FP) PO SCH ×2 (06:15→21:42)
[2018-09-25 07:17] LABS: CHOLESTEROL 296 mg/dL (50-200); HDL CHOLESTEROL 55 mg/dL (40-60); TRIGLYCERIDES 152 mg/dL (0-150)
[2018-09-25] MEDS ORDERED: LISINOPRIL 5 MG TABLET (FP) PO SCH (10:00)
[2018-09-25] MEDS: PREGABALIN 75 MG CAPSULE PO SCH (10:07)
[2018-09-25] MEDS: amLODIPine BESYLATE 2.5 MG TABLET (FP) PO SCH (10:08)
[2018-09-25] MEDS: CARVEDILOL 6.25 MG TABLET (FP) PO SCH ×2 (10:08→21:44)
--- NOTE | 2018-09-25 12:36 | PN ---
Progress Note, Physician History of Present Illness: Denies dyspnea, chest pain. - Current Medication List Current Medications: Active Medications Amlodipine Besylate (Norvasc -) 2.5 mg PO DAILY [facility] Last Admin: 09/25/18 10:08 Dose: 2.5 mg Carvedilol (Coreg -) 6.25 mg PO BID [facility] Last Admin: 09/25/18 10:08 Dose: 6.25 mg Doxepin HCl (Sinequan -) 200 mg PO HS [facility] Last Admin: 09/24/18 22:32 Dose: 200 mg Duloxetine HCl (Cymbalta -) 30 mg PO HS [facility] Last Admin: 09/24/18 21:08 Dose: 30 mg Gabapentin (Neurontin -) 600 mg PO HS [facility] Last Admin: 09/24/18 21:07 Dose: 600 mg Levetiracetam (Keppra -) 1,000 mg PO AM [facility] Last Admin: 09/25/18 06:15 Dose: 1,000 mg Levetiracetam (Keppra -) 1,500 mg PO HS [facility] Last Admin: 09/24/18 21:06 Dose: 1,500 mg Lisinopril (Prinivil) 5 mg PO DAILY [facility] Last Admin: 09/25/18 10:08 Dose: 5 mg Pregabalin (Lyrica -) 225 mg PO DAILY [facility] Last Admin: 09/25/18 10:07 Dose: Not Given - Objective Vital Signs: Vital Signs Temperature 98.0 F 09/25/18 10:00 Pulse Rate 99 H 09/25/18 12:00 Respiratory Rate 20 09/25/18 08:00 Blood Pressure 128/88 09/25/18 12:00 O2 Sat by Pulse Oximetry (%) 96 09/25/18 09:00 Constitutional: Yes: No Distress, Calm Neck: Yes: Supple Cardiovascular: Yes: Regular Rate and Rhythm Respiratory: Yes: Regular, Diminished Gastrointestinal: Yes: Normal Bowel Sounds, Soft Edema: No Labs: CBC, BMP 09/23/18 10:07 09/24/18 12:00 Problem List - Problems (1) Dilated cardiomyopathy Code(s): I42.0 - DILATED CARDIOMYOPATHY (2) Systolic dysfunction Code(s): I51.9 - HEART DISEASE, UNSPECIFIED (3) Hypertension Code(s): I10 - ESSENTIAL (PRIMARY) HYPERTENSION Qualifiers: Hypertension type: essential hypertension Qualified Code(s): I10 - Essential (primary) hypertension (4) Seizure Code(s): R56.9 - UNSPECIFIED CONVULSIONS (5) CKD (chronic kidney disease) Code(s): N18.9 - CHRONIC KIDNEY DISEASE, UNSPECIFIED (6) Hyperlipidemia Code(s): E78.5 - HYPERLIPIDEMIA, UNSPECIFIED Qualifiers: Hyperlipidemia type: pure hypercholesterolemia Qualified Code(s): E78.00 - Pure hypercholesterolemia, unspecified; E78.0 - Pure hypercholesterolemia Assessment/Plan 09/24/2018 Echo: Normal LV size with severe decreased global LVEF 30%, abnormal LV compliance, normal RV size and fxn, normal atrial sizes, tr MR, TR. No pericardial or pleural effusions 1. Generalized weakness 2. HTN 3. LV systolic dysfunction/dilated cardiomyopathy with global hypokinesia 4. History of cerebral aneurysm s/p repair and coiling 5. Seizure disorder 6. CKD 7. Hyperlipidemia PLAN: 1. Continue Carvedilol 6.25 mg BID 2. Started lisinopril 5 qd with monitor renal function and K, change Norvasc to aldosterone antagonist if she demonstrates compliance 3. Further cardiac work up to be followed to assess CAD. Consider nuclear myocardial perfusion scan at some point 4. If LVEF remains below 35%, she may need to be assessed for defibrillator implantation after 90 days of therapy. 5. Fasting lipid panel reviewed, add Lipitor 80 qd, check TSH and Ha1c
--- NOTE | 2018-09-25 14:41 | DS ---
Physical Examination Vital Signs: Vital Signs Temperature 97.7 F 09/25/18 14:00 Pulse Rate 103 H 09/25/18 14:00 Respiratory Rate 22 H 09/25/18 14:00 Blood Pressure 120/94 09/25/18 14:00 O2 Sat by Pulse Oximetry (%) 96 09/25/18 09:00 Labs: CBC, BMP 09/23/18 10:07 09/24/18 12:00 Discharge Summary Reason For Visit: CHRONIC PAIN, PERICARDIAL EFFUSION Current Active Problems Abdominal pain (Acute) Chest pain (Acute) Dilated cardiomyopathy (Acute) Pericardial effusion (Acute) Systolic dysfunction (Acute) Condition: Guarded - Instructions - Home Medications Comprehensive Discharge Medication List: Ambulatory Orders Amlodipine Besylate [Norvasc -] 2.5 mg PO DAILY 12/09/15 Diclofenac Sodium [Voltaren] 100 gm TP BID 12/09/15 Doxepin HCl 200 mg PO HS 12/09/15 Levetiracetam [Keppra] 1,500 mg PO HS 12/09/15 Polyethylene Glycol 3350 [Miralax 255 gm Btl -] 17 gm PO DAILY PRN #1 bottle Pregabalin [Lyrica] 225 mg PO DAILY 12/09/15 levETIRAcetam [Keppra -] 1,000 mg PO AM 12/09/15 Acetaminophen/Caffeine/Butalb [Fioricet -] 1 tab PO Q4H PRN 03/14/18 Atenolol [Tenormin -] 25 mg PO DAILY 03/14/18 Duloxetine HCl [Cymbalta] 30 mg PO HS 03/14/18 Gabapentin [Neurontin] 600 mg PO HS 03/14/18 Ropinirole HCl 0.5 mg PO DAILY 03/14/18 Carvedilol [Coreg -] 6.25 mg PO BID #60 tablet 09/25/18 Lisinopril [Prinivil] 5 mg PO DAILY #30 tablet 09/25/18
--- NOTE | 2018-09-25 20:26 | PN ---
Progress Note, Physician - Current Medication List Current Medications: Active Medications Amlodipine Besylate (Norvasc -) 2.5 mg PO DAILY [facility] Last Admin: 09/25/18 10:08 Dose: 2.5 mg Atorvastatin Calcium (Lipitor -) 80 mg PO [facility] Carvedilol (Coreg -) 6.25 mg PO BID [facility] Last Admin: 09/25/18 10:08 Dose: 6.25 mg Doxepin HCl (Sinequan -) 200 mg PO HS [facility] Last Admin: 09/24/18 22:32 Dose: 200 mg Duloxetine HCl (Cymbalta -) 30 mg PO HS [facility] Last Admin: 09/24/18 21:08 Dose: 30 mg Gabapentin (Neurontin -) 600 mg PO HS [facility] Last Admin: 09/24/18 21:07 Dose: 600 mg Levetiracetam (Keppra -) 1,000 mg PO AM [facility] Last Admin: 09/25/18 06:15 Dose: 1,000 mg Levetiracetam (Keppra -) 1,500 mg PO HS [facility] Last Admin: 09/24/18 21:06 Dose: 1,500 mg Lisinopril (Prinivil) 5 mg PO DAILY [facility] Last Admin: 09/25/18 10:08 Dose: 5 mg Pregabalin (Lyrica -) 225 mg PO DAILY [facility] Last Admin: 09/25/18 10:07 Dose: Not Given - Objective Vital Signs: Vital Signs Temperature 97.8 F 09/25/18 18:00 Pulse Rate 87 09/25/18 18:00 Respiratory Rate 22 H 09/25/18 18:00 Blood Pressure 145/98 09/25/18 18:00 O2 Sat by Pulse Oximetry (%) 96 09/25/18 09:00 Constitutional: Yes: No Distress HENT: Yes: Atraumatic Neck: Yes: Supple Cardiovascular: Yes: Regular Rate and Rhythm Respiratory: Yes: CTA Bilaterally Gastrointestinal: Yes: Normal Bowel Sounds Extremities: Yes: WNL Edema: No Neurological: Yes: Alert, Oriented Labs: CBC, BMP 09/23/18 10:07 09/24/18 12:00 Problem List - Problems (1) Chest pain Assessment/Plan: resolved on meds per cardiology cleared to be dc Code(s): R07.9 - CHEST PAIN, UNSPECIFIED Qualifiers: Chest pain type: other chest pain Qualified Code(s): R07.89 - Other chest pain; R07.8 - Other chest pain (2) Pericardial effusion Assessment/Plan: echo/chest ct ....no effusion Code(s): I31.3 - PERICARDIAL EFFUSION (NONINFLAMMATORY) (3) Epilepsy Assessment/Plan: on meds Code(s): G40.909 - EPILEPSY, UNSP, NOT INTRACTABLE, WITHOUT STATUS EPILEPTICUS
[2018-09-25] MEDS ORDERED: PT OWN MED DRAWER 7, Y5N ONE (21:20)
[2018-09-25] MEDS: DULoxetine HCL 30 MG CAPSULE.DR (FP) PO SCH (21:43)
[2018-09-25] MEDS: GABAPENTIN 300 MG CAPSULE (FP) PO SCH (21:44)
[2018-09-25] MEDS: DOXEPIN HCL 25 MG CAPSULE PO SCH (21:45)
[2018-09-25] MEDS ORDERED: ATORVASTATIN CA 80 MG TABLET (FP) PO SCH (22:00)
[2018-09-26 08:49] LABS: ANION GAP 6 MMOL/L (8-16); BLOOD UREA NITROGEN 14 mg/dL (7-18); CALCIUM 8.8 mg/dL (8.5-10.1); CHLORIDE 107 mmol/L (98-107); CO2 28 mmol/L (21-32); CREATININE 1.5 mg/dL (0.55-1.3); GLUCOSE,RANDOM 91 mg/dL (74-106); POTASSIUM 3.8 mmol/L (3.5-5.1); SODIUM 141 mmol/L (136-145)
[2018-09-26] MEDS: levETIRAcetam 500 MG TABLET (FP) PO SCH (08:58)
[2018-09-26 09:03] VITALS: BP 143/87; PULSE 82; TEMP 97.6
--- NOTE | 2018-09-26 20:24 | DS ---
Physical Examination Vital Signs: Vital Signs Temperature 97.6 F 09/26/18 09:02 Pulse Rate 82 09/26/18 09:02 Respiratory Rate 22 H 09/26/18 09:02 Blood Pressure 143/87 09/26/18 09:02 O2 Sat by Pulse Oximetry (%) 100 09/26/18 08:59 Constitutional: Yes: No Distress HENT: Yes: Atraumatic Neck: Yes: Supple Cardiovascular: Yes: Regular Rate and Rhythm Respiratory: Yes: CTA Bilaterally Gastrointestinal: Yes: Normal Bowel Sounds Extremities: Yes: WNL Neurological: Yes: Alert, Oriented Labs: CBC, BMP 09/23/18 10:07 09/26/18 05:30 Discharge Summary Reason For Visit: CHRONIC PAIN, PERICARDIAL EFFUSION Condition: Guarded - Instructions Diet, Activity, Other Instructions: see your pmd next week Referrals: Amish Moscoso MD [Staff Physician] - Disposition: HOME - Home Medications Comprehensive Discharge Medication List: Ambulatory Orders Amlodipine Besylate [Norvasc -] 2.5 mg PO DAILY 12/09/15 Diclofenac Sodium [Voltaren] 100 gm TP BID 12/09/15 Doxepin HCl 200 mg PO HS 12/09/15 Levetiracetam [Keppra] 1,500 mg PO HS 12/09/15 Polyethylene Glycol 3350 [Miralax 255 gm Btl -] 17 gm PO DAILY PRN #1 bottle Pregabalin [Lyrica] 225 mg PO DAILY 12/09/15 levETIRAcetam [Keppra -] 1,000 mg PO AM 12/09/15 Acetaminophen/Caffeine/Butalb [Fioricet -] 1 tab PO Q4H PRN 03/14/18 Atenolol [Tenormin -] 25 mg PO DAILY 03/14/18 Duloxetine HCl [Cymbalta] 30 mg PO HS 03/14/18 Gabapentin [Neurontin] 600 mg PO HS 03/14/18 Ropinirole HCl 0.5 mg PO DAILY 03/14/18 Carvedilol [Coreg -] 6.25 mg PO BID #60 tablet 09/25/18 Lisinopril [Prinivil] 5 mg PO DAILY #30 tablet 09/25/18 [facility]
== END 2018-09-26 09:35 | disposition home or self-care (01) ==
LOC: JER 07:22 → JERBED 16:44 → J2W 23:00
PROVIDERS: ADMIT Internal Medicine; ATTEND Internal Medicine
PROC: 3E033GC Introduction of Other Therapeutic Substance into Peripheral Vein, Percutaneous Approach (ICD-10-PCS; principal; 2018-09-23)
PROC: 3E0337Z Introduction of Electrolytic and Water Balance Substance into Peripheral Vein, Percutaneous Approach (ICD-10-PCS; 2018-09-23)
DX: I31.3 Pericardial effusion (noninflammatory) (principal); R07.89 Other chest pain; R10.84 Generalized abdominal pain; G40.909 Epilepsy, unspecified, not intractable, without status epilepticus; I42.0 Dilated cardiomyopathy; I11.9 Hypertensive heart disease without heart failure; F31.9 Bipolar disorder, unspecified; F41.9 Anxiety disorder, unspecified; G25.81 Restless legs syndrome; G56.00 Carpal tunnel syndrome, unspecified upper limb; I69.354 Hemiplegia and hemiparesis following cerebral infarction affecting left non-dominant side; M54.9 Dorsalgia, unspecified; M54.2 Cervicalgia; G89.29 Other chronic pain; Z86.79 Personal history of other diseases of the circulatory system; Z87.820 Personal history of traumatic brain injury
CPT/HCPCS: 36415; 70450-TC; 71250-TC; 74176-TC; 80048; 80053; 80061; 81003; 82962; 83036; 83690; 83721; 84443; 84484; 85025; 87086; 93005; 93010; 93306-TC; 96365; 96375; 99281-25; G0378

== ENCOUNTER 2022-02-12 23:59 | Inpatient (IN) | payer OTHER ==
[2022-02-13 00:16] VITALS: BMI 26.4
[2022-02-13] MEDS ORDERED: SODIUM CHLORIDE 0.9% 500 ML INFUS.BAG IV ONE (01:03)
[2022-02-13 01:37] LABS: BASO % 0.7 % (0-2.0); EOS % 0.5 % (0-4.5); HEMOGLOBIN 13.3 GM/dL (10.7-15.3); LYMPH % 48.2 % (8-40); MCH 29.2 pg (25.7-33.7); MCHC 33.2 g/dl (32.0-36.0); MEAN CELL VOLUME 87.9 fl (80-96); MEAN PLT VOLUME 8.6 fl (7.5-11.1); MONO % 7.8 % (3.8-10.2); NEUT % 42.8 % (42.8-82.8); PLATELET COUNT 272 10^3/uL (134-434); RBC 4.55 M/mm3 (3.60-5.2); RDW 15.9 % (11.6-15.6)
[2022-02-13 01:46] LABS: VENOUS BASE EXCESS 2.8 mmol/L (-2-2); VENOUS O2 SATURATION 73.8 % (70-80); VENOUS PCO2 51.7 mmHg (38-52); VENOUS PH 7.369 (7.310-7.410)
[2022-02-13 01:53] LABS: INR 1.03 (0.83-1.09); PROTHROMBIN TIME (PATIENT) 11.9 SEC (9.7-13.0)
[2022-02-13 01:55] LABS: ACTIVATED PTT 29.4 SECONDS (25.2-36.5)
[2022-02-13 01:57] LABS: CHLORIDE 110 mmol/L (98-107); SODIUM 143 mmol/L (136-145)
[2022-02-13 01:58] LABS: CALCIUM 8.8 mg/dL (8.5-10.1)
[2022-02-13 01:59] LABS: ANION GAP 7 MMOL/L (8-16); CO2 27 mmol/L (21-32); MAGNESIUM 2.6 mg/dL (1.8-2.4)
[2022-02-13 02:00] LABS: ALBUMIN 3.6 g/dl (3.4-5.0); BLOOD UREA NITROGEN 20.5 mg/dL (7-18)
[2022-02-13 02:01] LABS: GLUCOSE,RANDOM 95 mg/dL (74-106)
[2022-02-13 02:02] LABS: CREATININE 1.4 mg/dL (0.55-1.3); SGOT/AST 44 U/L (15-37); SGPT/ALT 45 U/L (13-61)
[2022-02-13 02:03] LABS: CHOLESTEROL 233 mg/dL (50-200); PHOSPHOROUS 3.1 mg/dL (2.5-4.9); TRIGLYCERIDES 114 mg/dL (0-150)
[2022-02-13 02:04] LABS: TOT PROT 7.5 g/dl (6.4-8.2)
[2022-02-13 02:05] LABS: BILIRUBIN,TOTAL 0.2 mg/dL (0.2-1); LDL CHOLESTEROL (ONLY SJRH) 170 mg/dL (5-100)
[2022-02-13 02:06] LABS: ALK PHOS 89 U/L (45-117); HDL CHOLESTEROL 46 mg/dL (40-60); LACTIC ACID 2.5 mmol/L (0.4-2.0)
[2022-02-13 03:23] LABS: PH,URINE 5.5 (5.0-8.0); URINE APPEARANCE CLEAR; URINE BILIRUBIN NEGATIVE (NEGATIVE); URINE COLOR YELLOW; URINE GLUCOSE (UA) NEGATIVE (NEGATIVE); URINE KETONE NEGATIVE (NEGATIVE); URINE LEUK ESTERASE NEGATIVE (NEGATIVE); URINE NITRITE NEGATIVE (NEGATIVE); URINE PROTEIN NEGATIVE (NEGATIVE); URINE UROBILINOGEN 0.2 mg/dL (0.2-1.0)
[2022-02-13 03:34] LABS: PHENCYCLIDINE,URINE NEGATIVE (NEGATIVE); URINE BARBITURATES NEGATIVE (NEGATIVE); URINE BENZODIAZEPINES NEGATIVE (NEGATIVE)
[2022-02-13 03:35] LABS: METHADONE, UR NEGATIVE (NEGATIVE); OPIATES, URI NEGATIVE (NEGATIVE); URINE AMPHETAMINES NEGATIVE (NEGATIVE)
[2022-02-13 04:13] LABS: COCAINE, UR NEGATIVE (NEGATIVE)
[2022-02-13] MEDS ORDERED: ONDANSETRON 4 MG/2 ML VIAL IVPUSH PRN (06:51)
[2022-02-13] MEDS ORDERED: LEVOTHYROXINE NA 75 MCG TABLET (FP) ONE (08:46)
[2022-02-13] MEDS ORDERED: levETIRAcetam 500 MG TABLET (FP) PO ONE (08:46)
[2022-02-13] MEDS: levETIRAcetam 500 MG TABLET (FP) PO SCH (08:49)
[2022-02-13] MEDS: LEVOTHYROXINE NA 75 MCG TABLET (FP) PO SCH (08:49)
[2022-02-13] MEDS ORDERED: CITALOPRAM HYDROBROMIDE 10 MG TABLET ONE (10:30)
[2022-02-13] MEDS ORDERED: PANTOPRAZOLE 40 MG TABLET PO ONE (10:30)
[2022-02-13] MEDS ORDERED: LOSARTAN POTASSIUM 50 MG TABLET ONE (10:30)
[2022-02-13] MEDS ORDERED: ASPIRIN 81 MG CHEWABLE TABLETS ONE (10:30)
[2022-02-13] MEDS ORDERED: amLODIPine BESYLATE 10 MG TABLET (FP) ONE (10:30)
[2022-02-13] MEDS ORDERED: ENOXAPARIN NA (PORCINE) 40 MG/0.4 ML DISP.SYRIN SQ ONE (10:31)
[2022-02-13] MEDS: ASPIRIN 81 MG CHEWABLE TABLETS PO SCH (10:42)
[2022-02-13] MEDS: CITALOPRAM HYDROBROMIDE 10 MG TABLET PO SCH (10:42)
[2022-02-13] MEDS: ENOXAPARIN NA (PORCINE) 40 MG/0.4 ML DISP.SYRIN SQ SCH (10:42)
[2022-02-13] MEDS: LOSARTAN POTASSIUM 50 MG TABLET PO SCH (10:42)
[2022-02-13] MEDS: amLODIPine BESYLATE 10 MG TABLET (FP) PO SCH (10:43)
[2022-02-13] MEDS: PANTOPRAZOLE 40 MG TABLET PO SCH (10:43)
[2022-02-13] MEDS: OXcarbazepine 300 MG TABLET (UD) PO SCH ×2 (10:54→21:55)
[2022-02-13 12:12] LABS: BASO % 0.7 % (0-2.0); EOS % 1.3 % (0-4.5); HEMATOCRIT 38.3 % (32.4-45.2); HEMOGLOBIN 12.6 GM/dL (10.7-15.3); LYMPH % 51.6 % (8-40); MCH 28.8 pg (25.7-33.7); MCHC 32.8 g/dl (32.0-36.0); MEAN PLT VOLUME 8.3 fl (7.5-11.1); MONO % 6.3 % (3.8-10.2); NEUT % 40.1 % (42.8-82.8); PLATELET COUNT 221 10^3/uL (134-434); RBC 4.35 M/mm3 (3.60-5.2); RDW 15.9 % (11.6-15.6); WHITE BLOOD COUNT 3.9 K/mm3 (4.0-10.0)
[2022-02-13 12:37] LABS: ALBUMIN 3.2 g/dl (3.4-5.0); CALCIUM 8.9 mg/dL (8.5-10.1)
[2022-02-13 12:38] LABS: BLOOD UREA NITROGEN 16.2 mg/dL (7-18); MAGNESIUM 2.5 mg/dL (1.8-2.4)
[2022-02-13 12:41] LABS: CREATININE 0.9 mg/dL (0.55-1.3); PHOSPHOROUS 2.9 mg/dL (2.5-4.9)
[2022-02-13 12:42] LABS: BILIRUBIN,TOTAL 0.5 mg/dL (0.2-1); TOT PROT 6.8 g/dl (6.4-8.2)
[2022-02-13] MEDS: SODIUM CHLORIDE 0.45% 1,000 ML IV SCH (14:40)
[2022-02-13] MEDS: ATORVASTATIN CA 40 MG TABLET (FP) PO SCH (21:55)
[2022-02-14] MEDS: LEVOTHYROXINE NA 75 MCG TABLET (FP) PO SCH (07:09)
[2022-02-14] MEDS: levETIRAcetam 500 MG TABLET (FP) PO SCH (07:09)
[2022-02-14 07:56] LABS: BASO % 0.7 % (0-2.0); EOS % 1.7 % (0-4.5); HEMATOCRIT 35.2 % (32.4-45.2); HEMOGLOBIN 11.7 GM/dL (10.7-15.3); LYMPH % 48.4 % (8-40); MCHC 33.1 g/dl (32.0-36.0); MEAN CELL VOLUME 87.6 fl (80-96); MEAN PLT VOLUME 8.5 fl (7.5-11.1); NEUT % 42.2 % (42.8-82.8); PLATELET COUNT 191 10^3/uL (134-434); RBC 4.02 M/mm3 (3.60-5.2); RDW 15.8 % (11.6-15.6); WHITE BLOOD COUNT 3.3 K/mm3 (4.0-10.0)
[2022-02-14 08:19] LABS: ALBUMIN 3.2 g/dl (3.4-5.0); BLOOD UREA NITROGEN 20.5 mg/dL (7-18); CALCIUM 8.6 mg/dL (8.5-10.1)
[2022-02-14 08:22] LABS: CREATININE 0.9 mg/dL (0.55-1.3)
[2022-02-14 08:24] LABS: BILIRUBIN,TOTAL 0.3 mg/dL (0.2-1); TOT PROT 6.5 g/dl (6.4-8.2)
[2022-02-14] MEDS: ASPIRIN 81 MG CHEWABLE TABLETS PO SCH (10:16)
[2022-02-14] MEDS: ENOXAPARIN NA (PORCINE) 40 MG/0.4 ML DISP.SYRIN SQ SCH (10:16)
[2022-02-14] MEDS: CITALOPRAM HYDROBROMIDE 10 MG TABLET PO SCH (10:16)
[2022-02-14] MEDS: OXcarbazepine 300 MG TABLET (UD) PO SCH ×2 (10:17→21:12)
[2022-02-14] MEDS: PANTOPRAZOLE 40 MG TABLET PO SCH (10:17)
[2022-02-14] MEDS: LOSARTAN POTASSIUM 50 MG TABLET PO SCH (10:22)
[2022-02-14] MEDS: amLODIPine BESYLATE 10 MG TABLET (FP) PO SCH (10:23)
[2022-02-14] MEDS: ATORVASTATIN CA 40 MG TABLET (FP) PO SCH (21:12)
[2022-02-15] MEDS: SODIUM CHLORIDE 0.45% 1,000 ML IV SCH ×2 (04:00→13:41)
[2022-02-15] MEDS: levETIRAcetam 500 MG TABLET (FP) PO SCH (06:03)
[2022-02-15] MEDS: LEVOTHYROXINE NA 75 MCG TABLET (FP) PO SCH (06:03)
[2022-02-15] MEDS: amLODIPine BESYLATE 10 MG TABLET (FP) PO SCH (12:47)
[2022-02-15] MEDS: LOSARTAN POTASSIUM 50 MG TABLET PO SCH (12:48)
[2022-02-15] MEDS: OXcarbazepine 300 MG TABLET (UD) PO SCH ×2 (12:48→22:12)
[2022-02-15] MEDS: ENOXAPARIN NA (PORCINE) 40 MG/0.4 ML DISP.SYRIN SQ SCH (12:48)
[2022-02-15] MEDS: CITALOPRAM HYDROBROMIDE 10 MG TABLET PO SCH (12:49)
[2022-02-15] MEDS: ASPIRIN 81 MG CHEWABLE TABLETS PO SCH (12:49)
[2022-02-15] MEDS: PANTOPRAZOLE 40 MG TABLET PO SCH (12:49)
[2022-02-15] MEDS: ATORVASTATIN CA 40 MG TABLET (FP) PO SCH (22:12)
[2022-02-16] MEDS: levETIRAcetam 500 MG TABLET (FP) PO SCH (06:40)
[2022-02-16] MEDS: LEVOTHYROXINE NA 75 MCG TABLET (FP) PO SCH (06:40)
[2022-02-16] MEDS: amLODIPine BESYLATE 10 MG TABLET (FP) PO SCH (09:44)
[2022-02-16] MEDS: OXcarbazepine 300 MG TABLET (UD) PO SCH ×2 (09:44→21:00)
[2022-02-16] MEDS: LOSARTAN POTASSIUM 50 MG TABLET PO SCH (09:44)
[2022-02-16] MEDS: ASPIRIN 81 MG CHEWABLE TABLETS PO SCH (09:44)
[2022-02-16] MEDS: PANTOPRAZOLE 40 MG TABLET PO SCH (09:44)
[2022-02-16] MEDS: ENOXAPARIN NA (PORCINE) 40 MG/0.4 ML DISP.SYRIN SQ SCH (09:44)
[2022-02-16] MEDS: CITALOPRAM HYDROBROMIDE 10 MG TABLET PO SCH (09:47)
[2022-02-16] MEDS: ATORVASTATIN CA 40 MG TABLET (FP) PO SCH (21:00)
[2022-02-17] MEDS: LEVOTHYROXINE NA 75 MCG TABLET (FP) PO SCH (06:19)
[2022-02-17] MEDS: levETIRAcetam 500 MG TABLET (FP) PO SCH (06:19)
[2022-02-17] MEDS: ASPIRIN 81 MG CHEWABLE TABLETS PO SCH (09:38)
[2022-02-17] MEDS: LOSARTAN POTASSIUM 50 MG TABLET PO SCH (09:38)
[2022-02-17] MEDS: OXcarbazepine 300 MG TABLET (UD) PO SCH ×2 (09:38→22:05)
[2022-02-17] MEDS: CITALOPRAM HYDROBROMIDE 10 MG TABLET PO SCH (09:38)
[2022-02-17] MEDS: ENOXAPARIN NA (PORCINE) 40 MG/0.4 ML DISP.SYRIN SQ SCH (09:38)
[2022-02-17] MEDS: PANTOPRAZOLE 40 MG TABLET PO SCH (09:39)
[2022-02-17] MEDS: amLODIPine BESYLATE 10 MG TABLET (FP) PO SCH (09:39)
[2022-02-17] MEDS: ATORVASTATIN CA 40 MG TABLET (FP) PO SCH (22:05)
[2022-02-18] MEDS: levETIRAcetam 500 MG TABLET (FP) PO SCH (06:31)
[2022-02-18] MEDS: LEVOTHYROXINE NA 75 MCG TABLET (FP) PO SCH (06:31)
[2022-02-18] MEDS: ENOXAPARIN NA (PORCINE) 40 MG/0.4 ML DISP.SYRIN SQ SCH (10:19)
[2022-02-18] MEDS: CITALOPRAM HYDROBROMIDE 10 MG TABLET PO SCH (10:19)
[2022-02-18] MEDS: OXcarbazepine 300 MG TABLET (UD) PO SCH ×2 (10:19→21:40)
[2022-02-18] MEDS: amLODIPine BESYLATE 10 MG TABLET (FP) PO SCH (10:19)
[2022-02-18] MEDS: PANTOPRAZOLE 40 MG TABLET PO SCH (10:19)
[2022-02-18] MEDS: LOSARTAN POTASSIUM 50 MG TABLET PO SCH (10:20)
[2022-02-18] MEDS: ASPIRIN 81 MG CHEWABLE TABLETS PO SCH (10:21)
[2022-02-18] MEDS: ATORVASTATIN CA 40 MG TABLET (FP) PO SCH (21:39)
[2022-02-19] MEDS: LEVOTHYROXINE NA 75 MCG TABLET (FP) PO SCH (06:00)
[2022-02-19] MEDS: levETIRAcetam 500 MG TABLET (FP) PO SCH (06:00)
[2022-02-19] MEDS ORDERED: ONDANSETRON 4 MG/2 ML VIAL IVPUSH PRN (06:38)
[2022-02-19 11:09] LABS: BASO % 0.7 % (0-2.0); EOS % 2.4 % (0-4.5); HEMATOCRIT 36.1 % (32.4-45.2); HEMOGLOBIN 12.1 GM/dL (10.7-15.3); LYMPH % 26.1 % (8-40); MCH 29.2 pg (25.7-33.7); MCHC 33.6 g/dl (32.0-36.0); MEAN CELL VOLUME 86.9 fl (80-96); MEAN PLT VOLUME 8.5 fl (7.5-11.1); MONO % 7.6 % (3.8-10.2); NEUT % 63.2 % (42.8-82.8); PLATELET COUNT 309 10^3/uL (134-434); RBC 4.15 M/mm3 (3.60-5.2); RDW 15.9 % (11.6-15.6); WHITE BLOOD COUNT 5.3 K/mm3 (4.0-10.0)
[2022-02-19 11:30] LABS: CALCIUM 9.5 mg/dL (8.5-10.1)
[2022-02-19 11:31] LABS: ALBUMIN 3.3 g/dl (3.4-5.0); BLOOD UREA NITROGEN 25.8 mg/dL (7-18)
[2022-02-19] MEDS: ENOXAPARIN NA (PORCINE) 40 MG/0.4 ML DISP.SYRIN SQ SCH (11:31)
[2022-02-19] MEDS: LOSARTAN POTASSIUM 50 MG TABLET PO SCH (11:31)
[2022-02-19] MEDS: amLODIPine BESYLATE 10 MG TABLET (FP) PO SCH (11:31)
[2022-02-19] MEDS: PANTOPRAZOLE 40 MG TABLET PO SCH (11:31)
[2022-02-19] MEDS: ASPIRIN 81 MG CHEWABLE TABLETS PO SCH (11:31)
[2022-02-19 11:34] LABS: CREATININE 0.9 mg/dL (0.55-1.3)
[2022-02-19 11:36] LABS: BILIRUBIN,TOTAL 0.3 mg/dL (0.2-1)
[2022-02-19] MEDS: CITALOPRAM HYDROBROMIDE 10 MG TABLET PO SCH (14:49)
[2022-02-19] MEDS: OXcarbazepine 300 MG TABLET (UD) PO SCH ×2 (14:49→22:34)
[2022-02-19] MEDS: ATORVASTATIN CA 40 MG TABLET (FP) PO SCH (22:34)
[2022-02-19] MEDS ORDERED: ACETAMINOPHEN 1000 MG/100 ML BAG IVPB ONE (22:54)
[2022-02-20] MEDS: ACETAMINOPHEN 325 MG TABLET (FP) PO PRN ×2 (01:53→11:53)
[2022-02-20] MEDS: levETIRAcetam 500 MG TABLET (FP) PO SCH (06:25)
[2022-02-20] MEDS: LEVOTHYROXINE NA 75 MCG TABLET (FP) PO SCH (06:25)
[2022-02-20 10:28] LABS: BASO % 0.5 % (0-2.0); EOS % 2.5 % (0-4.5); HEMATOCRIT 34.6 % (32.4-45.2); HEMOGLOBIN 11.8 GM/dL (10.7-15.3); LYMPH % 31.5 % (8-40); MCH 29.4 pg (25.7-33.7); MCHC 34.1 g/dl (32.0-36.0); MEAN CELL VOLUME 86.1 fl (80-96); MEAN PLT VOLUME 8.4 fl (7.5-11.1); MONO % 10.3 % (3.8-10.2); NEUT % 55.2 % (42.8-82.8); PLATELET COUNT 317 10^3/uL (134-434); RBC 4.02 M/mm3 (3.60-5.2); RDW 15.7 % (11.6-15.6)
[2022-02-20] MEDS: PANTOPRAZOLE 40 MG TABLET PO SCH (11:00)
[2022-02-20] MEDS: LOSARTAN POTASSIUM 50 MG TABLET PO SCH (11:00)
[2022-02-20] MEDS: ASPIRIN 81 MG CHEWABLE TABLETS PO SCH (11:00)
[2022-02-20] MEDS: amLODIPine BESYLATE 10 MG TABLET (FP) PO SCH (11:00)
[2022-02-20] MEDS: OXcarbazepine 300 MG TABLET (UD) PO SCH ×2 (11:06→23:30)
[2022-02-20] MEDS: ENOXAPARIN NA (PORCINE) 40 MG/0.4 ML DISP.SYRIN SQ SCH (11:06)
[2022-02-20 11:10] LABS: ALBUMIN 3.4 g/dl (3.4-5.0); BLOOD UREA NITROGEN 23.5 mg/dL (7-18); CALCIUM 9.1 mg/dL (8.5-10.1)
[2022-02-20 11:13] LABS: BILIRUBIN,TOTAL 0.7 mg/dL (0.2-1)
[2022-02-20 11:15] LABS: CREATININE 0.8 mg/dL (0.55-1.3)
[2022-02-20 11:17] LABS: TOT PROT 7.1 g/dl (6.4-8.2)
[2022-02-20] MEDS: CITALOPRAM HYDROBROMIDE 10 MG TABLET PO SCH (13:16)
[2022-02-20] MEDS: ATORVASTATIN CA 40 MG TABLET (FP) PO SCH (23:30)
[2022-02-21] MEDS: LEVOTHYROXINE NA 75 MCG TABLET (FP) PO SCH (06:04)
[2022-02-21] MEDS: levETIRAcetam 500 MG TABLET (FP) PO SCH (06:05)
[2022-02-21] MEDS ORDERED: LOSARTAN POTASSIUM 50 MG TABLET PO SCH (09:22)
[2022-02-21] MEDS: CITALOPRAM HYDROBROMIDE 10 MG TABLET PO SCH (11:28)
[2022-02-21] MEDS: PANTOPRAZOLE 40 MG TABLET PO SCH (11:29)
[2022-02-21] MEDS: ENOXAPARIN NA (PORCINE) 40 MG/0.4 ML DISP.SYRIN SQ SCH (11:30)
[2022-02-21] MEDS: ASPIRIN 81 MG CHEWABLE TABLETS PO SCH (11:30)
[2022-02-21] MEDS: OXcarbazepine 300 MG TABLET (UD) PO SCH ×2 (11:30→21:40)
[2022-02-21] MEDS: ATORVASTATIN CA 40 MG TABLET (FP) PO SCH (21:40)
[2022-02-21] MEDS: ACETAMINOPHEN 325 MG TABLET (FP) PO PRN (21:40)
[2022-02-22] MEDS: levETIRAcetam 500 MG TABLET (FP) PO SCH ×2 (06:19→07:03)
[2022-02-22] MEDS: LEVOTHYROXINE NA 75 MCG TABLET (FP) PO SCH ×2 (06:20→07:03)
[2022-02-22] MEDS: OXcarbazepine 300 MG TABLET (UD) PO SCH ×2 (09:39→21:32)
[2022-02-22] MEDS: ENOXAPARIN NA (PORCINE) 40 MG/0.4 ML DISP.SYRIN SQ SCH (09:40)
[2022-02-22] MEDS: PANTOPRAZOLE 40 MG TABLET PO SCH (09:40)
[2022-02-22] MEDS: CITALOPRAM HYDROBROMIDE 10 MG TABLET PO SCH (09:40)
[2022-02-22] MEDS: ASPIRIN 81 MG CHEWABLE TABLETS PO SCH (09:40)
[2022-02-22] MEDS: ATORVASTATIN CA 40 MG TABLET (FP) PO SCH (21:31)
[2022-02-23] MEDS: LEVOTHYROXINE NA 75 MCG TABLET (FP) PO SCH (06:05)
[2022-02-23] MEDS: levETIRAcetam 500 MG TABLET (FP) PO SCH (06:06)
[2022-02-23 06:54] VITALS: BP 108/64; PULSE 67; TEMP 98.5
[2022-02-23] MEDS: CITALOPRAM HYDROBROMIDE 10 MG TABLET PO SCH (10:51)
[2022-02-23] MEDS: ASPIRIN 81 MG CHEWABLE TABLETS PO SCH (10:51)
[2022-02-23] MEDS: OXcarbazepine 300 MG TABLET (UD) PO SCH (10:51)
[2022-02-23] MEDS: ENOXAPARIN NA (PORCINE) 40 MG/0.4 ML DISP.SYRIN SQ SCH (10:51)
[2022-02-23] MEDS: PANTOPRAZOLE 40 MG TABLET PO SCH (10:51)
== END 2022-02-23 12:14 | DRG 178 ==
LOC: JER 23:59 → JERBED 02-13 02:58 → J2W 02-13 15:47 → J5S 02-19 06:34
PROVIDERS: ADMIT Hospitalist
DX: U07.1 COVID-19 (principal); I69.351 Hemiplegia and hemiparesis following cerebral infarction affecting right dominant side; N17.9 Acute kidney failure, unspecified; I42.0 Dilated cardiomyopathy; G93.49 Other encephalopathy; F31.9 Bipolar disorder, unspecified; I12.9 Hypertensive chronic kidney disease with stage 1 through stage 4 chronic kidney disease, or unspecified chronic kidney disease; F41.9 Anxiety disorder, unspecified; G25.81 Restless legs syndrome; Z87.820 Personal history of traumatic brain injury; G40.909 Epilepsy, unspecified, not intractable, without status epilepticus; N18.9 Chronic kidney disease, unspecified; E03.9 Hypothyroidism, unspecified; Z28.310 Unvaccinated for COVID-19; F39 Unspecified mood [affective] disorder; F12.90 Cannabis use, unspecified, uncomplicated; R51.9 Headache, unspecified
CPT/HCPCS: 0241U-QW; 36415; 70450-TC; 71045-TC-FY; 72125-TC; 80053; 80061; 80177; 80307; 81003; 82607; 82728; 82803; 82962; 83036; 83605; 83615; 83735; 84100; 84439; 84443; 84484; 85025; 85379; 85610; 85651; 85730; 86140; 86780; 87040; 87086; 93005; 93010; 93880-TC; 97116-GP; 97162-GP; 99285-25; C9803-CS; U0003; U0005

== ENCOUNTER 2022-07-02 16:32 | Inpatient (IN) | payer OTHER ==
[2022-07-02 18:09] LABS: URINE APPEARANCE CLEAR; URINE BILIRUBIN NEGATIVE (NEGATIVE); URINE COLOR YELLOW; URINE GLUCOSE (UA) NEGATIVE (NEGATIVE); URINE KETONE NEGATIVE (NEGATIVE); URINE LEUK ESTERASE NEGATIVE (NEGATIVE); URINE NITRITE NEGATIVE (NEGATIVE); URINE PROTEIN TRACE (NEGATIVE)
[2022-07-02] MEDS ORDERED: SODIUM CHLORIDE 0.9% 500 ML INFUS.BAG IV ONE (18:43)
[2022-07-02 19:19] LABS: BASO % 0.8 % (0-2.0); EOS % 0.6 % (0-4.5); HEMATOCRIT 35.7 % (32.4-45.2); HEMOGLOBIN 12.2 GM/dL (10.7-15.3); MCH 31.7 pg (25.7-33.7); MCHC 34.2 g/dl (32.0-36.0); MEAN CELL VOLUME 92.7 fl (80-96); MEAN PLT VOLUME 8.4 fl (7.5-11.1); MONO % 5.8 % (3.8-10.2); NEUT % 46.8 % (42.8-82.8); PLATELET COUNT 251 10^3/uL (134-434); RBC 3.85 M/mm3 (3.60-5.2); RDW 16.5 % (11.6-15.6); WHITE BLOOD COUNT 5.3 K/mm3 (4.0-10.0)
[2022-07-02 19:30] LABS: ALBUMIN 3.5 g/dl (3.4-5.0); BLOOD UREA NITROGEN 10.3 mg/dL (7-18); MAGNESIUM 2.1 mg/dL (1.8-2.4)
[2022-07-02 19:33] LABS: CREATININE 1.2 mg/dL (0.55-1.3)
[2022-07-02 19:34] LABS: BILIRUBIN,TOTAL 0.4 mg/dL (0.2-1); TOT PROT 6.8 g/dl (6.4-8.2)
[2022-07-02] MEDS ORDERED: morphine CARPU-JECT 2 MG/1 ML DISP.SYRIN IVPUSH ONE (20:58)
[2022-07-02] MEDS ORDERED: POTASSIUM CHLORIDE TABS 20 MEQ TABLET.ER (FP) PO ONE (21:31)
[2022-07-02] MEDS ORDERED: POTASSIUM CHLORIDE ORAL LIQUID 20 MEQ/15 ML ONE (22:07)
[2022-07-03 05:51] VITALS: BMI 26.7
[2022-07-03] MEDS: LEVOTHYROXINE NA 150 MCG TABLET PO SCH (06:03)
[2022-07-03] MEDS: levETIRAcetam 500 MG TABLET (FP) PO SCH (07:47)
[2022-07-03 10:09] VITALS: RESP 18
[2022-07-03] MEDS: amLODIPine BESYLATE 10 MG TABLET (FP) PO SCH (10:49)
[2022-07-03] MEDS: LOSARTAN POTASSIUM 50 MG TABLET PO SCH (10:49)
[2022-07-03] MEDS: ASPIRIN 81 MG CHEWABLE TABLETS PO SCH (10:50)
[2022-07-03] MEDS: ENOXAPARIN NA (PORCINE) 40 MG/0.4 ML DISP.SYRIN SQ SCH (10:50)
[2022-07-03] MEDS: OXcarbazepine 300 MG TABLET (UD) PO SCH ×2 (10:50→22:44)
[2022-07-03] MEDS: PANTOPRAZOLE 40 MG TABLET PO SCH (10:50)
[2022-07-03] MEDS: CITALOPRAM HYDROBROMIDE 10 MG TABLET PO SCH (10:50)
[2022-07-03] MEDS: POLYETHYLENE GLYCOL (HEALTHYLAX) 3350 17 GM PACKET PO SCH (10:51)
[2022-07-03 11:58] LABS: EOS % 0.8 % (0-4.5); HEMATOCRIT 35.7 % (32.4-45.2); LYMPH % 45.2 % (8-40); MCH 31.1 pg (25.7-33.7); MCHC 33.5 g/dl (32.0-36.0); MEAN CELL VOLUME 92.6 fl (80-96); MEAN PLT VOLUME 9.3 fl (7.5-11.1); MONO % 3.6 % (3.8-10.2); NEUT % 49.4 % (42.8-82.8); PLATELET COUNT 255 10^3/uL (134-434); RBC 3.86 M/mm3 (3.60-5.2); RDW 16.9 % (11.6-15.6); WHITE BLOOD COUNT 4.8 K/mm3 (4.0-10.0)
[2022-07-03] MEDS ORDERED: CEFTRIAXONE 1 GM in DEXTROSE 5%-WATER - 50 ML IVPB ONE (12:00)
[2022-07-03 12:20] LABS: ALBUMIN 3.4 g/dl (3.4-5.0); BLOOD UREA NITROGEN 12.1 mg/dL (7-18); CALCIUM 8.8 mg/dL (8.5-10.1); MAGNESIUM 2.2 mg/dL (1.8-2.4)
[2022-07-03 12:22] LABS: PHOSPHOROUS 2.5 mg/dL (2.5-4.9)
[2022-07-03 12:23] LABS: CREATININE 1.3 mg/dL (0.55-1.3)
[2022-07-03 12:24] LABS: BILIRUBIN,TOTAL 0.3 mg/dL (0.2-1); TOT PROT 6.5 g/dl (6.4-8.2)
[2022-07-03] MEDS ORDERED: POTASSIUM CHLORIDE TABS 20 MEQ TABLET.ER (FP) PO ONE (14:55)
[2022-07-03] MEDS: SODIUM CHLORIDE 1,000 ML IV SCH (16:51)
[2022-07-03] MEDS: ATORVASTATIN CA 40 MG TABLET (FP) PO SCH (22:44)
[2022-07-04] MEDS: levETIRAcetam 500 MG TABLET (FP) PO SCH (06:57)
[2022-07-04] MEDS: LEVOTHYROXINE NA 150 MCG TABLET PO SCH (06:57)
[2022-07-04 10:40] LABS: BASO % 0.9 % (0-2.0); EOS % 0.9 % (0-4.5); HEMATOCRIT 35.2 % (32.4-45.2); HEMOGLOBIN 11.7 GM/dL (10.7-15.3); LYMPH % 47.3 % (8-40); MCH 31.2 pg (25.7-33.7); MCHC 33.3 g/dl (32.0-36.0); MEAN CELL VOLUME 93.7 fl (80-96); MEAN PLT VOLUME 9.2 fl (7.5-11.1); MONO % 5.6 % (3.8-10.2); NEUT % 45.3 % (42.8-82.8); PLATELET COUNT 269 10^3/uL (134-434); RBC 3.76 M/mm3 (3.60-5.2); RDW 17.1 % (11.6-15.6); WHITE BLOOD COUNT 5.3 K/mm3 (4.0-10.0)
[2022-07-04 11:05] LABS: ALBUMIN 3.6 g/dl (3.4-5.0); CALCIUM 8.9 mg/dL (8.5-10.1)
[2022-07-04 11:06] LABS: MAGNESIUM 2.3 mg/dL (1.8-2.4)
[2022-07-04 11:08] LABS: CREATININE 1.3 mg/dL (0.55-1.3)
[2022-07-04 11:10] LABS: BILIRUBIN,TOTAL 0.5 mg/dL (0.2-1); TOT PROT 6.9 g/dl (6.4-8.2)
[2022-07-04] MEDS: OXcarbazepine 300 MG TABLET (UD) PO SCH ×2 (11:33→21:20)
[2022-07-04] MEDS: ASPIRIN 81 MG CHEWABLE TABLETS PO SCH (11:33)
[2022-07-04] MEDS: PANTOPRAZOLE 40 MG TABLET PO SCH (11:33)
[2022-07-04] MEDS: amLODIPine BESYLATE 10 MG TABLET (FP) PO SCH (11:33)
[2022-07-04] MEDS: ENOXAPARIN NA (PORCINE) 40 MG/0.4 ML DISP.SYRIN SQ SCH (11:33)
[2022-07-04] MEDS: CITALOPRAM HYDROBROMIDE 10 MG TABLET PO SCH (11:34)
[2022-07-04] MEDS: POLYETHYLENE GLYCOL (HEALTHYLAX) 3350 17 GM PACKET PO SCH (11:34)
[2022-07-04] MEDS: LOSARTAN POTASSIUM 50 MG TABLET PO SCH (11:34)
[2022-07-04] MEDS: ATORVASTATIN CA 40 MG TABLET (FP) PO SCH (21:19)
[2022-07-04] MEDS: CEFTRIAXONE 1 GM in DEXTROSE 5%-WATER - 50 ML IVPB SCH (21:20)
[2022-07-04] MEDS: SODIUM CHLORIDE 1,000 ML IV SCH (21:26)
[2022-07-05] MEDS: LEVOTHYROXINE NA 150 MCG TABLET PO SCH (06:28)
[2022-07-05] MEDS: levETIRAcetam 500 MG TABLET (FP) PO SCH (06:28)
[2022-07-05] MEDS: ASPIRIN 81 MG CHEWABLE TABLETS PO SCH (10:31)
[2022-07-05] MEDS: PANTOPRAZOLE 40 MG TABLET PO SCH (10:31)
[2022-07-05] MEDS: CITALOPRAM HYDROBROMIDE 10 MG TABLET PO SCH (10:31)
[2022-07-05] MEDS: OXcarbazepine 300 MG TABLET (UD) PO SCH (10:31)
[2022-07-05] MEDS: CEFTRIAXONE 1 GM in DEXTROSE 5%-WATER - 50 ML IVPB SCH (10:32)
[2022-07-05] MEDS: ENOXAPARIN NA (PORCINE) 40 MG/0.4 ML DISP.SYRIN SQ SCH (10:32)
[2022-07-05] MEDS: amLODIPine BESYLATE 10 MG TABLET (FP) PO SCH (10:32)
[2022-07-05] MEDS: LOSARTAN POTASSIUM 50 MG TABLET PO SCH (10:32)
[2022-07-05] MEDS: POLYETHYLENE GLYCOL (HEALTHYLAX) 3350 17 GM PACKET PO SCH (10:32)
[2022-07-05] MEDS: SODIUM CHLORIDE 1,000 ML IV SCH (10:33)
[2022-07-05] MEDS: NITROFURANTOIN MACROCRYSTAL 50 MG CAPSULE (FP) PO SCH ×2 (13:12→17:35)
[2022-07-05 13:14] LABS: CALCIUM 9.1 mg/dL (8.5-10.1)
[2022-07-05 13:15] LABS: ALBUMIN 3.5 g/dl (3.4-5.0); MAGNESIUM 2.1 mg/dL (1.8-2.4)
[2022-07-05 13:16] LABS: BLOOD UREA NITROGEN 12.6 mg/dL (7-18); CREATININE 1.2 mg/dL (0.55-1.3)
[2022-07-05 13:17] LABS: TOT PROT 6.8 g/dl (6.4-8.2)
[2022-07-05 13:18] LABS: BILIRUBIN,TOTAL 0.3 mg/dL (0.2-1)
[2022-07-05 14:19] VITALS: BP 148/98; PULSE 77; TEMP 98.2
[2022-07-05] MEDS ORDERED: POLYETHYLENE GLYCOL (HEALTHYLAX) 3350 17 GM PACKET PO SCH (22:00)
[2022-07-05] MEDS ORDERED: DOCUSATE SODIUM 100 MG CAPSULE (FP) PO SCH (22:00)
[2022-07-06] MEDS ORDERED: levoFLOXacin 750 MG TABLET PO SCH (06:00)
== END 2022-07-05 18:03 | disposition home or self-care (01) | DRG 690 ==
LOC: JER 16:32 → JERBED 21:31 → J5S 07-03 01:45
PROVIDERS: ADMIT Internal Medicine; ATTEND Nurse Practitioner Acute Care
DX: N39.0 Urinary tract infection, site not specified (principal); K59.09 Other constipation; E78.5 Hyperlipidemia, unspecified; I10 Essential (primary) hypertension; E03.9 Hypothyroidism, unspecified; F31.9 Bipolar disorder, unspecified; G40.909 Epilepsy, unspecified, not intractable, without status epilepticus; G25.81 Restless legs syndrome; F41.9 Anxiety disorder, unspecified; G56.00 Carpal tunnel syndrome, unspecified upper limb; B95.2 Enterococcus as the cause of diseases classified elsewhere; F12.90 Cannabis use, unspecified, uncomplicated; F17.210 Nicotine dependence, cigarettes, uncomplicated; Z87.820 Personal history of traumatic brain injury
CPT/HCPCS: 0241U-QW; 36415; 74176-TC; 74177-TC; 80053; 81003; 83036; 83690; 83735; 84100; 84443; 85025; 87086; 87186; 93005; 93010; 99285-25; Q9967

== ENCOUNTER 2022-12-19 19:03 | Observation (INO) | payer OTHER ==
[2022-12-19 19:38] VITALS: BMI 25.1
[2022-12-19] MEDS ORDERED: morphine CARPU-JECT 4 MG/1 ML DISP.SYRIN IVPUSH ONE (20:00)
[2022-12-19 21:35] LABS: BASO % 0.8 % (0-2.0); EOS % 0.4 % (0-4.5); HEMATOCRIT 37.5 % (32.4-45.2); LYMPH % 43.5 % (8-40); MCH 33.6 pg (25.7-33.7); MCHC 34.8 g/dl (32.0-36.0); MEAN CELL VOLUME 96.5 fl (80-96); MEAN PLT VOLUME 9.4 fl (7.5-11.1); NEUT % 50.3 % (42.8-82.8); PLATELET COUNT 239 10^3/uL (134-434); RBC 3.89 M/mm3 (3.60-5.2); RDW 15.8 % (11.6-15.6); WHITE BLOOD COUNT 5.2 K/mm3 (4.0-10.0)
[2022-12-19] MEDS ORDERED: SODIUM CHLORIDE 0.9% 500 ML INFUS.BAG IV ONE (21:47)
[2022-12-19 21:51] LABS: POTASSIUM 3.6 mmol/L (3.5-5.1)
[2022-12-19 21:54] LABS: BLOOD UREA NITROGEN 13.8 mg/dL (7-18); CALCIUM 9.5 mg/dL (8.5-10.1)
[2022-12-19 21:55] LABS: ALBUMIN 4.6 g/dl (3.4-5.0); MAGNESIUM 2.4 mg/dL (1.8-2.4)
[2022-12-19 21:56] LABS: CREATININE 1.3 mg/dL (0.55-1.3)
[2022-12-19 21:58] LABS: BILIRUBIN,TOTAL 0.7 mg/dL (0.2-1); TOT PROT 8.6 g/dl (6.4-8.2)
[2022-12-20] MEDS: HEPARIN NA (PORCINE) 5,000 UNITS/ML 1ML VIAL SQ SCH ×3 (06:06→21:50)
[2022-12-20] MEDS: LEVOTHYROXINE 100 MCG, LEVOTHYROXINE 75 MCG PO SCH (06:06)
[2022-12-20] MEDS: LOSARTAN POTASSIUM 50 MG TABLET PO SCH (09:16)
[2022-12-20] MEDS: amLODIPine BESYLATE 10 MG TABLET (FP) PO SCH (09:16)
[2022-12-20] MEDS: levETIRAcetam 500 MG TABLET (FP) PO SCH ×2 (09:16→21:50)
[2022-12-20] MEDS: POLYETHYLENE GLYCOL (HEALTHYLAX) 3350 17 GM PACKET PO SCH ×2 (09:16→21:50)
[2022-12-20] MEDS ORDERED: LEVOTHYROXINE NA 150 MCG TABLET PO SCH ×2 (10:00)
[2022-12-20 10:34] LABS: BASO % 0.9 % (0-2.0); EOS % 0.6 % (0-4.5); HEMATOCRIT 33.1 % (32.4-45.2); HEMOGLOBIN 11.9 GM/dL (10.7-15.3); LYMPH % 44.5 % (8-40); MCH 34.3 pg (25.7-33.7); MCHC 35.8 g/dl (32.0-36.0); MEAN CELL VOLUME 95.6 fl (80-96); MEAN PLT VOLUME 9.1 fl (7.5-11.1); MONO % 5.2 % (3.8-10.2); NEUT % 48.8 % (42.8-82.8); PLATELET COUNT 206 10^3/uL (134-434); RBC 3.46 M/mm3 (3.60-5.2); RDW 15.4 % (11.6-15.6); WHITE BLOOD COUNT 5.3 K/mm3 (4.0-10.0)
[2022-12-20 10:58] LABS: POTASSIUM 3.1 mmol/L (3.5-5.1)
[2022-12-20 11:02] LABS: CALCIUM 9.4 mg/dL (8.5-10.1)
[2022-12-20 11:03] LABS: BLOOD UREA NITROGEN 10.2 mg/dL (7-18)
[2022-12-20 11:07] LABS: CREATININE 1.3 mg/dL (0.55-1.3)
[2022-12-20 11:09] LABS: BILIRUBIN,TOTAL 0.7 mg/dL (0.2-1); TOT PROT 7.3 g/dl (6.4-8.2)
[2022-12-20] MEDS: traMADol HCL 50 MG TABLET PO PRN ×2 (13:00→21:49)
[2022-12-20] MEDS ORDERED: POTASSIUM CHLORIDE TABS 20 MEQ TABLET.ER (FP) PO ONE (18:00)
[2022-12-20] MEDS: ATORVASTATIN CA 40 MG TABLET (FP) PO SCH (21:50)
[2022-12-21] MEDS: LEVOTHYROXINE 100 MCG, LEVOTHYROXINE 75 MCG PO SCH (06:08)
[2022-12-21] MEDS: HEPARIN NA (PORCINE) 5,000 UNITS/ML 1ML VIAL SQ SCH ×3 (06:55→21:02)
[2022-12-21 08:45] LABS: POTASSIUM 3.6 mmol/L (3.5-5.1)
[2022-12-21 08:48] LABS: EOS % 0.5 % (0-4.5); HEMATOCRIT 33.7 % (32.4-45.2); LYMPH % 53.5 % (8-40); MCHC 35.5 g/dl (32.0-36.0); MEAN CELL VOLUME 95.8 fl (80-96); MEAN PLT VOLUME 9.8 fl (7.5-11.1); MONO % 5.4 % (3.8-10.2); NEUT % 39.6 % (42.8-82.8); PLATELET COUNT 212 10^3/uL (134-434); RBC 3.51 M/mm3 (3.60-5.2); RDW 15.1 % (11.6-15.6); WHITE BLOOD COUNT 5.1 K/mm3 (4.0-10.0)
[2022-12-21 08:50] LABS: ALBUMIN 4.2 g/dl (3.4-5.0); BLOOD UREA NITROGEN 9.8 mg/dL (7-18); CALCIUM 9.3 mg/dL (8.5-10.1)
[2022-12-21 08:54] LABS: CREATININE 1.1 mg/dL (0.55-1.3)
[2022-12-21 08:55] LABS: TOT PROT 7.4 g/dl (6.4-8.2)
[2022-12-21] MEDS: traMADol HCL 50 MG TABLET PO PRN (10:14)
[2022-12-21] MEDS: amLODIPine BESYLATE 10 MG TABLET (FP) PO SCH (10:14)
[2022-12-21] MEDS: LOSARTAN POTASSIUM 50 MG TABLET PO SCH (10:14)
[2022-12-21] MEDS: levETIRAcetam 500 MG TABLET (FP) PO SCH ×2 (10:14→21:02)
[2022-12-21] MEDS: POLYETHYLENE GLYCOL (HEALTHYLAX) 3350 17 GM PACKET PO SCH ×2 (10:38→21:03)
[2022-12-21] MEDS ORDERED: ONDANSETRON 4 MG/2 ML VIAL IVPUSH PRN (20:04)
[2022-12-21] MEDS: ATORVASTATIN CA 40 MG TABLET (FP) PO SCH (21:03)
[2022-12-22] MEDS: HEPARIN NA (PORCINE) 5,000 UNITS/ML 1ML VIAL SQ SCH ×3 (06:33→22:05)
[2022-12-22] MEDS ORDERED: LEVOTHYROXINE SODIUM 100 MCG 5 ML VIAL IVPUSH SCH (07:00)
[2022-12-22] MEDS: LIOTHYRONINE SODIUM 25 MCG TABLET PO SCH (10:22)
[2022-12-22] MEDS: LOSARTAN POTASSIUM 50 MG TABLET PO SCH (10:22)
[2022-12-22] MEDS: levETIRAcetam 500 MG TABLET (FP) PO SCH ×2 (10:22→22:07)
[2022-12-22] MEDS: POLYETHYLENE GLYCOL (HEALTHYLAX) 3350 17 GM PACKET PO SCH ×2 (10:22→22:05)
[2022-12-22] MEDS: amLODIPine BESYLATE 10 MG TABLET (FP) PO SCH (10:22)
[2022-12-22] MEDS: ATORVASTATIN CA 40 MG TABLET (FP) PO SCH (22:07)
[2022-12-23] MEDS: HEPARIN NA (PORCINE) 5,000 UNITS/ML 1ML VIAL SQ SCH ×3 (05:56→21:30)
[2022-12-23] MEDS: LEVOTHYROXINE NA 88 MCG TABLET (FP) PO SCH (06:08)
[2022-12-23] MEDS: levETIRAcetam 500 MG TABLET (FP) PO SCH ×2 (09:22→21:30)
[2022-12-23] MEDS: amLODIPine BESYLATE 10 MG TABLET (FP) PO SCH (09:22)
[2022-12-23] MEDS: LIOTHYRONINE SODIUM 25 MCG TABLET PO SCH (09:22)
[2022-12-23] MEDS: LOSARTAN POTASSIUM 50 MG TABLET PO SCH (09:22)
[2022-12-23] MEDS: POLYETHYLENE GLYCOL (HEALTHYLAX) 3350 17 GM PACKET PO SCH ×2 (09:22→21:30)
[2022-12-23] MEDS: ATORVASTATIN CA 40 MG TABLET (FP) PO SCH (21:30)
[2022-12-23 22:24] VITALS: RESP 18
[2022-12-24] MEDS: LEVOTHYROXINE NA 88 MCG TABLET (FP) PO SCH (06:05)
[2022-12-24] MEDS: HEPARIN NA (PORCINE) 5,000 UNITS/ML 1ML VIAL SQ SCH ×3 (06:06→21:08)
[2022-12-24] MEDS: POLYETHYLENE GLYCOL (HEALTHYLAX) 3350 17 GM PACKET PO SCH ×2 (09:36→21:08)
[2022-12-24] MEDS: levETIRAcetam 500 MG TABLET (FP) PO SCH ×2 (09:36→21:09)
[2022-12-24] MEDS: amLODIPine BESYLATE 10 MG TABLET (FP) PO SCH (09:36)
[2022-12-24] MEDS: LIOTHYRONINE SODIUM 25 MCG TABLET PO SCH (09:36)
[2022-12-24] MEDS: LOSARTAN POTASSIUM 50 MG TABLET PO SCH (09:36)
[2022-12-24 18:20] VITALS: TEMP 98
[2022-12-24 21:02] VITALS: BP 135/98; PULSE 67
[2022-12-24] MEDS: ATORVASTATIN CA 40 MG TABLET (FP) PO SCH (21:09)
== END 2022-12-24 21:13 ==
LOC: JER 19:03 → JERBED 12-20 00:27 → INTOOBSV 12-20 00:27 → J5S 12-20 04:09
PROVIDERS: ADMIT Internal Medicine; ATTEND Internal Medicine
PROC: 3E033NZ Introduction of Analgesics, Hypnotics, Sedatives into Peripheral Vein, Percutaneous Approach (ICD-10-PCS; principal; 2022-12-20)
PROC: 3E0333Z Introduction of Anti-inflammatory into Peripheral Vein, Percutaneous Approach (ICD-10-PCS; 2022-12-20)
PROC: 3E033GC Introduction of Other Therapeutic Substance into Peripheral Vein, Percutaneous Approach (ICD-10-PCS; 2022-12-20)
PROC: 3E0337Z Introduction of Electrolytic and Water Balance Substance into Peripheral Vein, Percutaneous Approach (ICD-10-PCS; 2022-12-20)
PROC: 3E013GC Introduction of Other Therapeutic Substance into Subcutaneous Tissue, Percutaneous Approach (ICD-10-PCS; 2022-12-20)
DX: R10.9 Unspecified abdominal pain (principal); E87.6 Hypokalemia; E03.8 Other specified hypothyroidism; M79.602 Pain in left arm; R26.2 Difficulty in walking, not elsewhere classified; I10 Essential (primary) hypertension; E78.5 Hyperlipidemia, unspecified; G40.909 Epilepsy, unspecified, not intractable, without status epilepticus; I42.0 Dilated cardiomyopathy; F31.9 Bipolar disorder, unspecified; R94.6 Abnormal results of thyroid function studies; Z91.148 Patient's other noncompliance with medication regimen for other reason; F39 Unspecified mood [affective] disorder; K21.9 Gastro-esophageal reflux disease without esophagitis; Z86.73 Personal history of transient ischemic attack (TIA), and cerebral infarction without residual deficits; Z86.16 Personal history of COVID-19; N39.0 Urinary tract infection, site not specified
CPT/HCPCS: 0241U-QW; 36415; 74177-TC; 80053; 83690; 83735; 84439; 84443; 84484; 85025; 86376; 93005; 93010; 96372; 96374; 96375; 97116-GP; 97161-GP; 99285-25; G0378; J1644; Q9967

== ENCOUNTER 2023-07-11 22:17 | Inpatient (IN) | payer OTHER ==
[2023-07-11] MEDS ORDERED: MAG HYDROX/AL HYDROX/SIMETH 30 ML UNIT-DOSE CUP PO ONE (22:57)
[2023-07-11] MEDS ORDERED: MAG HYDROX/AL HYDROX/SIMETH 30 ML UNIT-DOSE CUP ONE (23:04)
[2023-07-11 23:32] LABS: BASO % 0.7 % (0-2.0); EOS % 0.6 % (0-4.5); HEMATOCRIT 38.4 % (32.4-45.2); HEMOGLOBIN 12.6 GM/dL (10.7-15.3); LYMPH % 33.3 % (8-40); MCH 30.1 pg (25.7-33.7); MCHC 32.8 g/dl (32.0-36.0); MEAN CELL VOLUME 91.9 fl (80-96); MEAN PLT VOLUME 8.4 fl (7.5-11.1); MONO % 4.2 % (3.8-10.2); NEUT % 61.2 % (42.8-82.8); PLATELET COUNT 260 10^3/uL (134-434); RBC 4.18 M/mm3 (3.60-5.2); RDW 18.4 % (11.6-15.6); WHITE BLOOD COUNT 6.1 K/mm3 (4.0-10.0)
[2023-07-12 00:34] LABS: POTASSIUM 3.9 mmol/L (3.5-5.1)
[2023-07-12 00:36] LABS: CALCIUM 8.6 mg/dL (8.5-10.1)
[2023-07-12 00:37] LABS: ALBUMIN 3.6 g/dl (3.4-5.0); MAGNESIUM 2.4 mg/dL (1.8-2.4)
[2023-07-12 00:40] LABS: CREATININE 1.3 mg/dL (0.55-1.3); PHOSPHOROUS 2.6 mg/dL (2.5-4.9)
[2023-07-12 00:41] LABS: BILIRUBIN,TOTAL 0.3 mg/dL (0.2-1); TOT PROT 7.2 g/dl (6.4-8.2)
[2023-07-12 00:45] LABS: N-TERMINAL BNP 59.7 pg/ml (5-125)
[2023-07-12] MEDS ORDERED: LEVOTHYROXINE SODIUM 100 MCG 5 ML VIAL IVPUSH ONE (01:28)
[2023-07-12] MEDS ORDERED: LIOTHYRONINE SODIUM 25 MCG TABLET PO ONE (01:29)
[2023-07-12] MEDS ORDERED: levETIRAcetam 500 MG TABLET (FP) PO ONE (05:24)
[2023-07-12] MEDS: levETIRAcetam 500 MG TABLET (FP) PO SCH ×3 (05:24→22:08)
[2023-07-12] MEDS: OXcarbazepine 300 MG TABLET (UD) PO SCH ×3 (05:24→22:50)
[2023-07-12] MEDS: amLODIPine BESYLATE 10 MG TABLET (FP) PO SCH (05:41)
[2023-07-12 06:17] LABS: POTASSIUM 3.6 mmol/L (3.5-5.1)
[2023-07-12 06:19] LABS: CALCIUM 8.7 mg/dL (8.5-10.1)
[2023-07-12 06:20] LABS: ALBUMIN 3.6 g/dl (3.4-5.0); BLOOD UREA NITROGEN 15.6 mg/dL (7-18); MAGNESIUM 2.4 mg/dL (1.8-2.4)
[2023-07-12 06:23] LABS: CREATININE 1.2 mg/dL (0.55-1.3); PHOSPHOROUS 2.8 mg/dL (2.5-4.9)
[2023-07-12 06:24] LABS: BILIRUBIN,TOTAL 0.3 mg/dL (0.2-1)
[2023-07-12 06:58] LABS: HEMATOCRIT 38.9 % (32.4-45.2); HEMOGLOBIN 12.4 GM/dL (10.7-15.3); MCH 29.3 pg (25.7-33.7); MCHC 31.9 g/dl (32.0-36.0); MEAN CELL VOLUME 91.9 fl (80-96); MEAN PLT VOLUME 8.8 fl (7.5-11.1); PLATELET COUNT 260 10^3/uL (134-434); RBC 4.24 M/mm3 (3.60-5.2); RDW 18.3 % (11.6-15.6); WHITE BLOOD COUNT 5.8 K/mm3 (4.0-10.0)
[2023-07-12 07:24] VITALS: BMI 26.4
[2023-07-12] MEDS: ENOXAPARIN NA (PORCINE) 40 MG/0.4 ML DISP.SYRIN SQ SCH (10:03)
[2023-07-12] MEDS: LOSARTAN POTASSIUM 50 MG TABLET PO SCH (15:13)
[2023-07-12] MEDS: ALBUTEROL SO4 2.5/IPRATROPIUM 0.5 INH SOL 3 ML VIAL.NEB. NEB SCH (20:02)
[2023-07-12] MEDS: ATORVASTATIN CA 40 MG TABLET (FP) PO SCH (22:08)
[2023-07-13 06:26] LABS: PH,URINE 5.5 (5.0-8.0); URINE APPEARANCE CLOUDY; URINE BILIRUBIN NEGATIVE (NEGATIVE); URINE COLOR YELLOW; URINE GLUCOSE (UA) NEGATIVE (NEGATIVE); URINE KETONE NEGATIVE (NEGATIVE); URINE LEUK ESTERASE NEGATIVE (NEGATIVE); URINE NITRITE NEGATIVE (NEGATIVE); URINE PROTEIN NEGATIVE (NEGATIVE); URINE UROBILINOGEN 0.2 mg/dL (0.2-1.0)
[2023-07-13] MEDS: LEVOTHYROXINE SODIUM 100 MCG 5 ML VIAL IVPUSH SCH (06:42)
[2023-07-13] MEDS: ALBUTEROL SO4 2.5/IPRATROPIUM 0.5 INH SOL 3 ML VIAL.NEB. NEB SCH ×3 (08:10→19:25)
[2023-07-13 09:19] LABS: BASO % 0.8 % (0-2.0); EOS % 0.9 % (0-4.5); HEMATOCRIT 37.9 % (32.4-45.2); HEMOGLOBIN 12.4 GM/dL (10.7-15.3); LYMPH % 46.2 % (8-40); MCHC 32.6 g/dl (32.0-36.0); MEAN CELL VOLUME 92.1 fl (80-96); MEAN PLT VOLUME 8.6 fl (7.5-11.1); MONO % 4.2 % (3.8-10.2); NEUT % 47.9 % (42.8-82.8); PLATELET COUNT 249 10^3/uL (134-434); RBC 4.11 M/mm3 (3.60-5.2); RDW 18.8 % (11.6-15.6); WHITE BLOOD COUNT 5.6 K/mm3 (4.0-10.0)
[2023-07-13] MEDS: ENOXAPARIN NA (PORCINE) 40 MG/0.4 ML DISP.SYRIN SQ SCH (09:25)
[2023-07-13] MEDS: LIOTHYRONINE SODIUM 25 MCG TABLET PO SCH (09:26)
[2023-07-13] MEDS: OXcarbazepine 300 MG TABLET (UD) PO SCH ×2 (09:26→21:29)
[2023-07-13] MEDS: LOSARTAN POTASSIUM 50 MG TABLET PO SCH (09:26)
[2023-07-13] MEDS: amLODIPine BESYLATE 10 MG TABLET (FP) PO SCH (09:26)
[2023-07-13] MEDS: PANTOPRAZOLE 40 MG TABLET PO SCH (09:26)
[2023-07-13] MEDS: levETIRAcetam 500 MG TABLET (FP) PO SCH ×2 (09:26→21:29)
[2023-07-13 09:42] LABS: POTASSIUM 4.1 mmol/L (3.5-5.1)
[2023-07-13 09:50] LABS: CALCIUM 8.8 mg/dL (8.5-10.1)
[2023-07-13 09:51] LABS: ALBUMIN 3.6 g/dl (3.4-5.0); MAGNESIUM 2.6 mg/dL (1.8-2.4)
[2023-07-13 09:53] LABS: CREATININE 1.2 mg/dL (0.55-1.3); PHOSPHOROUS 3.8 mg/dL (2.5-4.9)
[2023-07-13 09:55] LABS: BILIRUBIN,TOTAL 0.6 mg/dL (0.2-1); TOT PROT 6.9 g/dl (6.4-8.2)
[2023-07-13] MEDS: CARVEDILOL 6.25 MG TABLET (FP) PO SCH (21:29)
[2023-07-13] MEDS: ATORVASTATIN CA 40 MG TABLET (FP) PO SCH (21:29)
[2023-07-14] MEDS: LEVOTHYROXINE SODIUM 100 MCG 5 ML VIAL IVPUSH SCH (06:17)
[2023-07-14] MEDS: ALBUTEROL SO4 2.5/IPRATROPIUM 0.5 INH SOL 3 ML VIAL.NEB. NEB SCH ×3 (08:01→20:00)
[2023-07-14 08:26] LABS: BASO % 0.6 % (0-2.0); EOS % 0.8 % (0-4.5); HEMATOCRIT 36.5 % (32.4-45.2); HEMOGLOBIN 11.8 GM/dL (10.7-15.3); LYMPH % 41.1 % (8-40); MCH 29.9 pg (25.7-33.7); MCHC 32.4 g/dl (32.0-36.0); MEAN CELL VOLUME 92.4 fl (80-96); MEAN PLT VOLUME 8.6 fl (7.5-11.1); MONO % 4.9 % (3.8-10.2); NEUT % 52.6 % (42.8-82.8); PLATELET COUNT 232 10^3/uL (134-434); RBC 3.95 M/mm3 (3.60-5.2); RDW 18.4 % (11.6-15.6); WHITE BLOOD COUNT 5.8 K/mm3 (4.0-10.0)
[2023-07-14 08:51] LABS: POTASSIUM 4.1 mmol/L (3.5-5.1)
[2023-07-14 08:54] LABS: CALCIUM 8.6 mg/dL (8.5-10.1); MAGNESIUM 2.3 mg/dL (1.8-2.4)
[2023-07-14 08:56] LABS: BLOOD UREA NITROGEN 18.3 mg/dL (7-18)
[2023-07-14 08:57] LABS: CREATININE 1.3 mg/dL (0.55-1.3)
[2023-07-14 08:58] LABS: ALBUMIN 3.4 g/dl (3.4-5.0)
[2023-07-14 08:59] LABS: TOT PROT 6.8 g/dl (6.4-8.2)
[2023-07-14 09:01] LABS: BILIRUBIN,TOTAL 0.7 mg/dL (0.2-1)
[2023-07-14] MEDS: ENOXAPARIN NA (PORCINE) 40 MG/0.4 ML DISP.SYRIN SQ SCH (09:18)
[2023-07-14] MEDS: levETIRAcetam 500 MG TABLET (FP) PO SCH ×2 (09:18→21:34)
[2023-07-14] MEDS: LOSARTAN POTASSIUM 50 MG TABLET PO SCH (09:19)
[2023-07-14] MEDS: CARVEDILOL 6.25 MG TABLET (FP) PO SCH ×2 (09:19→21:34)
[2023-07-14] MEDS: LIOTHYRONINE SODIUM 25 MCG TABLET PO SCH (09:19)
[2023-07-14] MEDS: PANTOPRAZOLE 40 MG TABLET PO SCH (09:19)
[2023-07-14] MEDS: amLODIPine BESYLATE 10 MG TABLET (FP) PO SCH (09:19)
[2023-07-14] MEDS: OXcarbazepine 300 MG TABLET (UD) PO SCH ×2 (09:20→21:34)
[2023-07-14] MEDS ORDERED: FLUTICASONE/UMECLIDIN/VILANTER(100-62.5-25 TRELEGY ELLIPTA) INAHLER IH SCH (14:15)
[2023-07-14] MEDS: ATORVASTATIN CA 40 MG TABLET (FP) PO SCH (21:34)
[2023-07-15] MEDS: LEVOTHYROXINE SODIUM 100 MCG 5 ML VIAL IVPUSH SCH (06:27)
[2023-07-15 08:10] LABS: BASO % 0.6 % (0-2.0); HEMATOCRIT 34.1 % (32.4-45.2); HEMOGLOBIN 11.6 GM/dL (10.7-15.3); LYMPH % 38.2 % (8-40); MCH 30.6 pg (25.7-33.7); MCHC 33.9 g/dl (32.0-36.0); MEAN CELL VOLUME 90.1 fl (80-96); MEAN PLT VOLUME 8.8 fl (7.5-11.1); MONO % 5.5 % (3.8-10.2); NEUT % 54.7 % (42.8-82.8); PLATELET COUNT 210 10^3/uL (134-434); RBC 3.78 M/mm3 (3.60-5.2); RDW 18.7 % (11.6-15.6); WHITE BLOOD COUNT 5.5 K/mm3 (4.0-10.0)
[2023-07-15 08:39] LABS: BLOOD UREA NITROGEN 22.4 mg/dL (7-18)
[2023-07-15 08:40] LABS: ALBUMIN 3.4 g/dl (3.4-5.0); CALCIUM 8.6 mg/dL (8.5-10.1); MAGNESIUM 2.2 mg/dL (1.8-2.4)
[2023-07-15 08:41] LABS: CREATININE 1.1 mg/dL (0.55-1.3)
[2023-07-15 08:45] LABS: TOT PROT 6.6 g/dl (6.4-8.2)
[2023-07-15 08:49] LABS: BILIRUBIN,TOTAL 0.5 mg/dL (0.2-1)
[2023-07-15] MEDS: PANTOPRAZOLE 40 MG TABLET PO SCH (09:21)
[2023-07-15] MEDS: ENOXAPARIN NA (PORCINE) 40 MG/0.4 ML DISP.SYRIN SQ SCH (09:21)
[2023-07-15] MEDS: LOSARTAN POTASSIUM 50 MG TABLET PO SCH (09:21)
[2023-07-15] MEDS: amLODIPine BESYLATE 10 MG TABLET (FP) PO SCH (09:21)
[2023-07-15] MEDS: CARVEDILOL 6.25 MG TABLET (FP) PO SCH ×2 (09:22→21:54)
[2023-07-15] MEDS: LIOTHYRONINE SODIUM 25 MCG TABLET PO SCH (09:22)
[2023-07-15] MEDS: levETIRAcetam 500 MG TABLET (FP) PO SCH ×2 (09:22→21:54)
[2023-07-15] MEDS: OXcarbazepine 300 MG TABLET (UD) PO SCH ×2 (09:22→21:55)
[2023-07-15] MEDS: ALBUTEROL SO4 2.5/IPRATROPIUM 0.5 INH SOL 3 ML VIAL.NEB. NEB SCH ×3 (11:00→20:06)
[2023-07-15 13:43] VITALS: RESP 18
[2023-07-15] MEDS: ATORVASTATIN CA 40 MG TABLET (FP) PO SCH (21:54)
[2023-07-16] MEDS: LEVOTHYROXINE SODIUM 100 MCG 5 ML VIAL IVPUSH SCH (06:03)
[2023-07-16] MEDS: ALBUTEROL SO4 2.5/IPRATROPIUM 0.5 INH SOL 3 ML VIAL.NEB. NEB SCH ×3 (08:54→20:00)
[2023-07-16 09:05] LABS: BASO % 0.8 % (0-2.0); EOS % 0.8 % (0-4.5); HEMATOCRIT 35.2 % (32.4-45.2); HEMOGLOBIN 11.4 GM/dL (10.7-15.3); LYMPH % 34.6 % (8-40); MCH 29.9 pg (25.7-33.7); MCHC 32.4 g/dl (32.0-36.0); MEAN CELL VOLUME 92.5 fl (80-96); MEAN PLT VOLUME 8.8 fl (7.5-11.1); MONO % 6.9 % (3.8-10.2); NEUT % 56.9 % (42.8-82.8); PLATELET COUNT 213 10^3/uL (134-434); RBC 3.81 M/mm3 (3.60-5.2); RDW 18.7 % (11.6-15.6)
[2023-07-16 09:35] LABS: POTASSIUM 3.9 mmol/L (3.5-5.1)
[2023-07-16 09:42] LABS: CALCIUM 9.3 mg/dL (8.5-10.1)
[2023-07-16 09:43] LABS: ALBUMIN 3.4 g/dl (3.4-5.0); BLOOD UREA NITROGEN 19.2 mg/dL (7-18); MAGNESIUM 2.3 mg/dL (1.8-2.4)
[2023-07-16 09:44] LABS: BILIRUBIN,TOTAL 0.6 mg/dL (0.2-1); TOT PROT 6.8 g/dl (6.4-8.2)
[2023-07-16] MEDS: amLODIPine BESYLATE 10 MG TABLET (FP) PO SCH (10:36)
[2023-07-16] MEDS: LOSARTAN POTASSIUM 50 MG TABLET PO SCH (10:36)
[2023-07-16] MEDS: CARVEDILOL 6.25 MG TABLET (FP) PO SCH ×2 (10:36→21:39)
[2023-07-16] MEDS: levETIRAcetam 500 MG TABLET (FP) PO SCH ×2 (10:36→21:39)
[2023-07-16] MEDS: PANTOPRAZOLE 40 MG TABLET PO SCH (10:36)
[2023-07-16] MEDS: DOCUSATE SODIUM 100 MG CAPSULE (FP) PO SCH ×3 (10:36→21:39)
[2023-07-16] MEDS: POLYETHYLENE GLYCOL (HEALTHYLAX) 3350 17 GM PACKET PO SCH ×2 (10:37→21:39)
[2023-07-16] MEDS: LIOTHYRONINE SODIUM 25 MCG TABLET PO SCH (10:37)
[2023-07-16] MEDS: ENOXAPARIN NA (PORCINE) 40 MG/0.4 ML DISP.SYRIN SQ SCH (10:37)
[2023-07-16] MEDS: OXcarbazepine 300 MG TABLET (UD) PO SCH ×2 (10:37→21:52)
[2023-07-16] MEDS: ATORVASTATIN CA 40 MG TABLET (FP) PO SCH (21:39)
[2023-07-17] MEDS: DOCUSATE SODIUM 100 MG CAPSULE (FP) PO SCH ×2 (05:10→14:50)
[2023-07-17] MEDS: LEVOTHYROXINE SODIUM 100 MCG 5 ML VIAL IVPUSH SCH (06:21)
[2023-07-17] MEDS ORDERED: LIOTHYRONINE SODIUM 5 MCG TABLET PO SCH (07:00)
[2023-07-17] MEDS: ALBUTEROL SO4 2.5/IPRATROPIUM 0.5 INH SOL 3 ML VIAL.NEB. NEB SCH ×2 (08:20→14:50)
[2023-07-17 09:39] LABS: BASO % 0.6 % (0-2.0); EOS % 1.1 % (0-4.5); HEMOGLOBIN 11.1 GM/dL (10.7-15.3); LYMPH % 37.4 % (8-40); MCH 30.1 pg (25.7-33.7); MCHC 32.6 g/dl (32.0-36.0); MEAN CELL VOLUME 92.2 fl (80-96); MEAN PLT VOLUME 8.9 fl (7.5-11.1); MONO % 6.9 % (3.8-10.2); PLATELET COUNT 210 10^3/uL (134-434); RBC 3.69 M/mm3 (3.60-5.2); RDW 18.7 % (11.6-15.6); WHITE BLOOD COUNT 4.8 K/mm3 (4.0-10.0)
[2023-07-17 09:51] LABS: POTASSIUM 4.1 mmol/L (3.5-5.1)
[2023-07-17 09:54] LABS: ALBUMIN 3.4 g/dl (3.4-5.0); BLOOD UREA NITROGEN 14.8 mg/dL (7-18); MAGNESIUM 2.1 mg/dL (1.8-2.4)
[2023-07-17 09:57] LABS: CREATININE 0.9 mg/dL (0.55-1.3)
[2023-07-17 09:58] LABS: TOT PROT 6.8 g/dl (6.4-8.2)
[2023-07-17 09:59] LABS: BILIRUBIN,TOTAL 0.7 mg/dL (0.2-1)
[2023-07-17] MEDS: levETIRAcetam 500 MG TABLET (FP) PO SCH (09:59)
[2023-07-17] MEDS: LOSARTAN POTASSIUM 50 MG TABLET PO SCH (09:59)
[2023-07-17] MEDS: PANTOPRAZOLE 40 MG TABLET PO SCH (09:59)
[2023-07-17] MEDS: amLODIPine BESYLATE 10 MG TABLET (FP) PO SCH (09:59)
[2023-07-17] MEDS: CARVEDILOL 6.25 MG TABLET (FP) PO SCH (09:59)
[2023-07-17] MEDS: OXcarbazepine 300 MG TABLET (UD) PO SCH (10:00)
[2023-07-17] MEDS: ENOXAPARIN NA (PORCINE) 40 MG/0.4 ML DISP.SYRIN SQ SCH (10:00)
[2023-07-17] MEDS: POLYETHYLENE GLYCOL (HEALTHYLAX) 3350 17 GM PACKET PO SCH (10:00)
[2023-07-17] MEDS ORDERED: LEVOTHYROXINE NA 200 MCG TABLET PO ONE (10:30)
[2023-07-18] MEDS ORDERED: LEVOTHYROXINE NA 200 MCG TABLET PO SCH (07:00)
[2023-07-19 14:56] VITALS: BP 121/76; PULSE 90; TEMP 98.3
== END 2023-07-17 15:47 | DRG 644 ==
LOC: JER 22:17 → JERBED 07-12 01:31 → J8W 07-12 06:25
PROVIDERS: ADMIT Internal Medicine; ATTEND Nurse Practitioner Acute Care
DX: E03.9 Hypothyroidism, unspecified (principal); I13.0 Hypertensive heart and chronic kidney disease with heart failure and stage 1 through stage 4 chronic kidney disease, or unspecified chronic kidney disease; I50.20 Unspecified systolic (congestive) heart failure; R10.9 Unspecified abdominal pain; G40.909 Epilepsy, unspecified, not intractable, without status epilepticus; N18.9 Chronic kidney disease, unspecified; Z87.820 Personal history of traumatic brain injury; F31.9 Bipolar disorder, unspecified; J44.9 Chronic obstructive pulmonary disease, unspecified; Z91.148 Patient's other noncompliance with medication regimen for other reason
CPT/HCPCS: 36415; 71045-TC-FY; 74018-TC-FY; 80053; 80061; 80177; 81003; 83735; 83880; 84100; 84439; 84443; 84481; 84484; 85025; 85027; 85379; 87086; 87635; 93005; 93010; 93306-TC; 94640; 97116-GP; 97161-GP; 99285-25

== ENCOUNTER 2023-07-17 17:43 | Inpatient (IN) | payer OTHER ==
[2023-07-17 18:04] VITALS: BMI 25.0
[2023-07-17] MEDS ORDERED: ALBUTEROL SO4 0.083% IH SOL 2.5 MG/3 ML VIAL.NEB. NEB PRN (21:20)
[2023-07-17] MEDS: DOCUSATE SODIUM 100 MG CAPSULE (FP) PO SCH (21:38)
[2023-07-17] MEDS: POLYETHYLENE GLYCOL (HEALTHYLAX) 3350 17 GM PACKET PO SCH (21:39)
[2023-07-17] MEDS: ATORVASTATIN CA 40 MG TABLET (FP) PO SCH (21:39)
[2023-07-17] MEDS ORDERED: SUCRALFATE 1 GM TABLET (FP) PO SCH (22:00)
[2023-07-17] MEDS: OXcarbazepine 300 MG TABLET (UD) PO SCH (22:00)
[2023-07-17] MEDS: SUCRALFATE 1 GM TABLET (FP) PO SCH (22:02)
[2023-07-18] MEDS: SUCRALFATE 1 GM TABLET (FP) PO SCH ×3 (09:04→23:12)
[2023-07-18] MEDS: levETIRAcetam 500 MG TABLET (FP) PO SCH (09:04)
[2023-07-18] MEDS: LEVOTHYROXINE NA 100 MCG TABLET (FP) PO SCH (09:04)
[2023-07-18] MEDS: ASPIRIN 81 MG CHEWABLE TABLETS PO SCH (11:47)
[2023-07-18] MEDS: LIOTHYRONINE SODIUM 5 MCG TABLET PO SCH (11:47)
[2023-07-18] MEDS: CITALOPRAM HYDROBROMIDE 10 MG TABLET PO SCH (11:47)
[2023-07-18] MEDS: LOSARTAN POTASSIUM 50 MG TABLET PO SCH (11:47)
[2023-07-18] MEDS: OXcarbazepine 300 MG TABLET (UD) PO SCH ×2 (11:48→23:12)
[2023-07-18] MEDS: amLODIPine BESYLATE 10 MG TABLET (FP) PO SCH (11:48)
[2023-07-18] MEDS: POLYETHYLENE GLYCOL (HEALTHYLAX) 3350 17 GM PACKET PO SCH ×2 (11:48→23:01)
[2023-07-18] MEDS: ENOXAPARIN NA (PORCINE) 40 MG/0.4 ML DISP.SYRIN SQ SCH (11:48)
[2023-07-18] MEDS: PANTOPRAZOLE 40 MG TABLET PO SCH (11:48)
[2023-07-18] MEDS: DOCUSATE SODIUM 100 MG CAPSULE (FP) PO SCH (23:01)
[2023-07-18] MEDS: ATORVASTATIN CA 40 MG TABLET (FP) PO SCH (23:01)
[2023-07-19] MEDS: SUCRALFATE 1 GM TABLET (FP) PO SCH ×5 (02:42→21:34)
[2023-07-19] MEDS: LEVOTHYROXINE NA 100 MCG TABLET (FP) PO SCH (06:08)
[2023-07-19] MEDS: levETIRAcetam 500 MG TABLET (FP) PO SCH (06:08)
[2023-07-19 08:44] LABS: BASO % 0.9 % (0-2.0); EOS % 0.8 % (0-4.5); HEMATOCRIT 37.9 % (32.4-45.2); HEMOGLOBIN 12.1 GM/dL (10.7-15.3); MCH 29.7 pg (25.7-33.7); MCHC 31.9 g/dl (32.0-36.0); MEAN CELL VOLUME 92.9 fl (80-96); MEAN PLT VOLUME 8.8 fl (7.5-11.1); MONO % 6.3 % (3.8-10.2); PLATELET COUNT 217 10^3/uL (134-434); RBC 4.08 M/mm3 (3.60-5.2); RDW 18.6 % (11.6-15.6)
[2023-07-19 09:06] LABS: POTASSIUM 4.3 mmol/L (3.5-5.1)
[2023-07-19 09:23] LABS: ALBUMIN 3.7 g/dl (3.4-5.0); BILIRUBIN,TOTAL 0.5 mg/dL (0.2-1); BLOOD UREA NITROGEN 19.3 mg/dL (7-18); TOT PROT 7.4 g/dl (6.4-8.2)
[2023-07-19 09:25] LABS: CALCIUM 9.6 mg/dL (8.5-10.1)
[2023-07-19] MEDS: LOSARTAN POTASSIUM 50 MG TABLET PO SCH (10:35)
[2023-07-19] MEDS: LIOTHYRONINE SODIUM 5 MCG TABLET PO SCH (10:35)
[2023-07-19] MEDS: PANTOPRAZOLE 40 MG TABLET PO SCH (10:35)
[2023-07-19] MEDS: OXcarbazepine 300 MG TABLET (UD) PO SCH ×2 (10:35→21:34)
[2023-07-19] MEDS: ASPIRIN 81 MG CHEWABLE TABLETS PO SCH (10:35)
[2023-07-19] MEDS: ENOXAPARIN NA (PORCINE) 40 MG/0.4 ML DISP.SYRIN SQ SCH (10:35)
[2023-07-19] MEDS: amLODIPine BESYLATE 10 MG TABLET (FP) PO SCH (10:35)
[2023-07-19] MEDS: POLYETHYLENE GLYCOL (HEALTHYLAX) 3350 17 GM PACKET PO SCH ×2 (10:35→21:34)
[2023-07-19] MEDS: CITALOPRAM HYDROBROMIDE 10 MG TABLET PO SCH (17:11)
[2023-07-19] MEDS: ATORVASTATIN CA 40 MG TABLET (FP) PO SCH (21:34)
[2023-07-19] MEDS: DOCUSATE SODIUM 100 MG CAPSULE (FP) PO SCH (21:34)
[2023-07-20] MEDS: SUCRALFATE 1 GM TABLET (FP) PO SCH ×5 (06:02→22:27)
[2023-07-20] MEDS: LEVOTHYROXINE NA 100 MCG TABLET (FP) PO SCH (06:02)
[2023-07-20] MEDS: levETIRAcetam 500 MG TABLET (FP) PO SCH (06:02)
[2023-07-20] MEDS: PANTOPRAZOLE 40 MG TABLET PO SCH (09:47)
[2023-07-20] MEDS: ASPIRIN 81 MG CHEWABLE TABLETS PO SCH (09:47)
[2023-07-20] MEDS: amLODIPine BESYLATE 10 MG TABLET (FP) PO SCH (09:47)
[2023-07-20] MEDS: LOSARTAN POTASSIUM 50 MG TABLET PO SCH (09:47)
[2023-07-20] MEDS: POLYETHYLENE GLYCOL (HEALTHYLAX) 3350 17 GM PACKET PO SCH ×2 (09:47→22:18)
[2023-07-20] MEDS: CITALOPRAM HYDROBROMIDE 10 MG TABLET PO SCH (09:47)
[2023-07-20] MEDS: ENOXAPARIN NA (PORCINE) 40 MG/0.4 ML DISP.SYRIN SQ SCH (09:47)
[2023-07-20] MEDS: LIOTHYRONINE SODIUM 5 MCG TABLET PO SCH (09:47)
[2023-07-20] MEDS: OXcarbazepine 300 MG TABLET (UD) PO SCH ×2 (09:48→22:19)
[2023-07-20] MEDS ORDERED: OLANZapine 2.5 MG TABLET PO SCH (22:00)
[2023-07-20] MEDS: DOCUSATE SODIUM 100 MG CAPSULE (FP) PO SCH (22:18)
[2023-07-20] MEDS: ATORVASTATIN CA 40 MG TABLET (FP) PO SCH (22:19)
[2023-07-21] MEDS: SUCRALFATE 1 GM TABLET (FP) PO SCH ×2 (06:46→10:01)
[2023-07-21] MEDS: LEVOTHYROXINE NA 100 MCG TABLET (FP) PO SCH (06:46)
[2023-07-21] MEDS: levETIRAcetam 500 MG TABLET (FP) PO SCH (06:46)
[2023-07-21] MEDS: ASPIRIN 81 MG CHEWABLE TABLETS PO SCH (10:01)
[2023-07-21] MEDS: LIOTHYRONINE SODIUM 5 MCG TABLET PO SCH (10:01)
[2023-07-21] MEDS: POLYETHYLENE GLYCOL (HEALTHYLAX) 3350 17 GM PACKET PO SCH (10:01)
[2023-07-21] MEDS: amLODIPine BESYLATE 10 MG TABLET (FP) PO SCH (10:01)
[2023-07-21] MEDS: LOSARTAN POTASSIUM 50 MG TABLET PO SCH (10:01)
[2023-07-21] MEDS: OXcarbazepine 300 MG TABLET (UD) PO SCH (10:02)
[2023-07-21] MEDS: ENOXAPARIN NA (PORCINE) 40 MG/0.4 ML DISP.SYRIN SQ SCH (10:02)
[2023-07-21] MEDS: PANTOPRAZOLE 40 MG TABLET PO SCH (10:02)
[2023-07-21 14:38] VITALS: TEMP 97.5
[2023-07-21 17:07] VITALS: BP 140/80; PULSE 82; RESP 18
== END 2023-07-21 16:45 | disposition home or self-care (01) | DRG 644 ==
LOC: JER 17:43 → JERBED 18:48 → J7W 07-18 22:12 → OBSVTOIN 07-19 14:27
PROVIDERS: ADMIT Internal Medicine
DX: E03.8 Other specified hypothyroidism (principal); I13.0 Hypertensive heart and chronic kidney disease with heart failure and stage 1 through stage 4 chronic kidney disease, or unspecified chronic kidney disease; I50.22 Chronic systolic (congestive) heart failure; I42.0 Dilated cardiomyopathy; R10.13 Epigastric pain; G40.909 Epilepsy, unspecified, not intractable, without status epilepticus; F31.9 Bipolar disorder, unspecified; F39 Unspecified mood [affective] disorder; R26.9 Unspecified abnormalities of gait and mobility; E78.5 Hyperlipidemia, unspecified; K21.9 Gastro-esophageal reflux disease without esophagitis; K58.9 Irritable bowel syndrome, unspecified; Z91.148 Patient's other noncompliance with medication regimen for other reason; N18.9 Chronic kidney disease, unspecified
CPT/HCPCS: 36415; 70551-TC; 80053; 84439; 85025; 97116-GP; 97161-GP; 99285-25; G0378